=== PATIENT | female | born 1945 | race Caucasian/White ===

== ENCOUNTER 2016-12-10 10:27 | Inpatient (IN) | payer MEDICARE ==
[2016-12-10 11:10] LABS: #Basophils 0.1 thou/uL (0.0-0.2); #Eosinphils 0.4 thou/uL (0.0-0.7); #Lymphocytes 2.1 thou/uL (1.20-3.40); #Neutrophils 7.7 thou/uL (1.40-6.50); %Basophils 0.5 % (0.0-1.0); %Eosinophils 3.3 % (0.0-10.0); %Lymphocytes 18.4 % (21.0-51.0); %Monocytes 9.3 % (0.0-10.0); Hematocrit 38.4 % (36.0-47.0); Mean Platelet Volume 6.7 fL (7.4-10.4); Red Blood Cell (RBC) Count 4.09 mill/uL (4.20-5.40); White Blood Cell (WBC) Count 11.3 thou/uL (4.8-10.8)
[2016-12-10] MEDS ORDERED: Azithromycin 500 MG VIAL ONE (11:27)
[2016-12-10] MEDS ORDERED: Water For Inject, Bacteriostat 30 ML ONE (11:27)
[2016-12-10] MEDS ORDERED: Magnesium Sulfate 2 GM/100 ML BAG ONE (11:27)
[2016-12-10] MEDS ORDERED: methylPREDNISolone Sod Succ/PF 125 MG/2 ML VIAL ONE (11:27)
--- NOTE | 2016-12-10 11:39 | RAD ---
CHEST ONE VIEW: History: Dyspnea. Comparison: 11-09-16 FINDINGS: Cardiac silhouette is magnified by projection. Pulmonary vasculature is upper limits of normal. Maur ent is slightly rotated rightward. Mild bibasilar atelectasis is similar in appearance to the previo us exam. There is no confluent airspace consolidation or evidence of pneumothorax. hospice volunteer l kim overlie the chest. IMPRESSION: Chronic type findings appear stable. POS: [facility]
[2016-12-10 11:44] LABS: Troponin I 0.061 ng/mL (< 0.028)
[2016-12-10 12:05] LABS: Oxyhemoglobin 94.3 % (94.0-97.0); Sodium 139 mmol/L (135-148)
[2016-12-10 12:06] LABS: Mode NC; Modified Allen's Test POSITIVE; Vent NO
[2016-12-10 12:21] LABS: ALT (SGPT) 29 U/L (8-55); AST (SGOT) 20 U/L (5-34); Alkaline Phosphatase 103 U/L (40-150); Anion Gap 17 mmol/L (10-20); BUN (Urea Nitrogen) 23 mg/dL (9.8-20.1); Bilirubin, Total 0.4 mg/dL (0.2-1.2); CK (CPK) 42 U/L (29-168); Calc. Creatinine Clearance 0 mL/min (70-130); Calcium 9.2 mg/dL (7.8-10.44); Carbon Dioxide 33 mmol/L (23-31); Chloride 93 mmol/L (98-107); Estimated GFR-MDRD 76; Globulin 2.4 g/dL (2.4-3.5); Protein, Total 6.3 g/dL (6.0-8.3)
[2016-12-10 14:23] LABS: Troponin I 0.081 ng/mL (< 0.028)
--- NOTE | 2016-12-10 14:49 | HP ---
PRIMARY CARE PHYSICIAN: Carlos Mayorga M.D. REASON FOR ADMISSION: COPD exacerbation. HISTORY OF PRESENT ILLNESS: A 71-year-old female who has history of end-stage COPD and chronic resp iratory failure with home oxygen therapy, who presented to emergency room with a complaint of 3-day history of increasing shortness of breath. Patient was initially trying her home medication. She w as using her home nebulizer therapy, but patient was not feeling any better. Day by day, her cough and shortness of breath was more worse than baseline. Last night, patient was not able to breathe a t all and she was not able to sleep. Her symptoms were getting worse with lying down flat. She was having increasing cough and increasing sputum production with yellowish sputum, without any hemopty sis. Patient reports that recently she had upper respiratory infection with a runny nose. She magdi es any sore throat. She denies any flu-like illness. After that, all symptoms gotten worse. The p atient was able to hear her own wheezing. Last night, she had several times nebulizer therapy, but that was not helping, and that is why this morning she decided to come to the emergency room for ayden luation. In the emergency room, this patient appeared in mild respiratory distress. She was having wheezing. She was having very little air entry and she appeared in COPD exacerbation. Blood gas showed CO2 elevated. At this point, ER physician decided to keep this patient in the hospital for admission. At this time patient also has elevated troponin, but she denies any chest pain, but she does feels c hest tightness which she attributes to be due to breathing problem. She denies any palpitations. S he denies any dizziness or syncope. She denies any fever or chills. She denies any UTI symptoms. She denies any abdominal pain, constipation, diarrhea, melena, hematochezia. She denies any lower e xtremity edema. REVIEW OF SYSTEMS: The following complete review of systems was negative, unless otherwise mentione d in the HPI or below: Constitutional: Weight loss or gain, ability to conduct usual activities. Skin: Rash, itching. Eyes: Double vision, pain. ENT/Mouth: Nose bleeding, neck stiffness, pain, tenderness. Cardiovascular: Palpitations, dyspnea on exertion, orthopnea. Respiratory: Shortness of breath, wheezing, cough, hemoptysis, fever or night sweats. Gastrointestinal: Poor appetite, abdominal pain, heartburn, nausea, vomiting, constipation, or diar remington. Genitourinary: Urgency, frequency, dysuria, nocturia. Musculoskeletal: Pain, swelling. Neurologic/Psychiatric: Anxiety, depression. Allergy/Immunologic: Skin rash, bleeding tendency. Please see my HPI for pertinent positive and negative. All other review of systems reviewed and neg ative except as mentioned in the HPI. EMERGENCY ROOM COURSE: Patient is given DuoNeb therapy, azithromycin 500 mg, magnesium sulfate 2 g and Solu-Medrol 125 mg. PAST MEDICAL HISTORY: Chronic respiratory failure requiring home oxygen therapy, end-stage COPD, ch ronic respiratory acidosis with metabolic compensation, hypertension, dyslipidemia, hypothyroidism, chronic diastolic heart failure. PAST SURGICAL HISTORY: Defibrillator/pacemaker placement, cholecystectomy, tubal ligation. PAST PSYCHIATRIC HISTORY: Anxiety and depression. SOCIAL HISTORY: Patient lives at home. She has a remote history of smoking more than 50 years. Genesis boyce currently denies any smoking. She denies any other illicit drug abuse. She denies any alcohol ab use. ALLERGIES: CODEINE, PENICILLIN, and SULFA DRUGS. FAMILY HISTORY: No strong family history of premature coronary artery disease, stroke or cancer. CURRENT HOME MEDICATIONS: Albuterol nebulization q.4 hourly p.r.n., aspirin 81 mg p.o. daily, Lipit or 80 mg p.o. daily, Symbicort 2 puff inhalation b.i.d., Coreg 3.125 mg p.o. b.i.d., digoxin 0.125 m g p.o. daily, Zetia 10 mg p.o. daily, Prozac 20 mg p.o. daily, Lasix 80 mg p.o. b.i.d., Synthroid 75 mcg p.o. daily, lisinopril 2.5 mg p.o. daily, Protonix 40 mg p.o. daily, potassium chloride 10 mEq p.o. daily, simethicone 80 mg p.o. at bedtime p.r.n., buspirone 15 mg p.o. b.i.d., tramadol 50 mg p. o. t.i.d. p.r.n. PHYSICAL EXAMINATION: VITAL SIGNS: On arrival, blood pressure 112/66, pulse 90, respiratory rate 22, O2 saturation 95% on 3 liter oxygen, temperature 99.2. Weight 72.5 kilograms. GENERAL: Patient is currently alert, awake, appears in mild respiratory distress. HEAD: Normocephalic, atraumatic. EYES: Pupils round, reactive to light. Extraocular muscle intact. ENT: Oropharynx within normal limits. Moist mucous membranes. No oral lesions. No pharyngeal kenia thema, no exudate. NECK: Supple. Range of motion is normal. No meningeal signs of irritation. LUNGS: Bilateral end expiratory wheezing heard. Air entry reduced on both sides. No rales. The p atient does not have any accessory muscles of respiration in use. The patient is able to talk in fu ll sentences, but appears tachypneic. CARDIAC: S1, S2 regular without any murmur. ABDOMEN: Obesity present. Bowel sounds present, nontender, nondistended. No organomegaly, no mass , no suprapubic tenderness. BACK: Examination unremarkable, no CVA tenderness. EXTREMITIES: Upper extremity passive movements of all joints are normal. Lower extremity, bilatera l trace lower extremity edema noted. Good peripheral pulsation. SKIN: No skin rash. HEMATOLOGICAL SYSTEM: No lymphadenopathy. NEUROLOGIC: Patient is alert and oriented x3. Cranial nerves II-XII intact. Motor and sensation w ithin normal limits. The patient moves all 4 limbs. No focal neurological deficit. IMAGING AND SIGNIFICANT LABORATORY DATA: 1. EKG showing pacemaker rhythm. Chest x-ray showing chronic changes without any acute process. 2. CBC: WBC 11.3, hemoglobin 12.3, platelet 216. ABG: pH 7.34, CO2 73.8, bicarbonate 39.3, O2 88 .3, saturation 96.3 on oxygen. 3. BMP: Sodium 139, potassium 4.2, chloride 93, carbon dioxide 33, BUN 23, creatinine 0.75, glucos e 119, calcium 9.2. 4. LFT: AST 20, ALT 29, alkaline phosphatase 103, albumin 3.9, CK 42, CK-MB 2.7, troponin I 0.061. BNP 144.8. ASSESSMENT AND PLAN/IMPRESSION: 1. Acute on chronic obstructive pulmonary disease exacerbation with acute on chronic hypoxic respir atory failure. This patient has a very bad chronic obstructive pulmonary disease and patient has fa iled her home treatment. The patient has bilateral wheezing and decreased air entry. At this point , patient will require admission to telemetry floor because of elevated troponin. This patient will be treated with DuoNeb q.4 hourly on as needed basis, Dulera 2 puffs inhalation b.i.d., Mucinex 600 mg 3 times daily, Solu-Medrol 40 mg IV q.6 hourly. Empiric antibiotic therapy with azithromycin 50 0 mg IV daily. We will monitor clinical response. Oxygen to keep saturation above 92%. 2. Acute on chronic respiratory failure with hypercapnia and hypoxia on home oxygen therapy. Reginaldo morrell, patient has CO2 high, that is chronic with compensated bicarbonate elevated. This patient dennis l require oxygen to keep saturation 90%-92%. We will avoid high flow oxygen therapy. 3. Chronic diastolic heart failure. This patient has elevated BNP. Currently, her congestive hear t failure appears to be compensated and euvolemic. Patient will have continuous or home medication while in hospital. 4. Elevated troponin, likely due to demand ischemia from problem #1 and #2. 5. We will do serial cardiac enzymes to rule out acute coronary syndrome. 6. Dyslipidemia. We will continue Lipitor 80 mg p.o. at bedtime. 7. Chronic diastolic heart failure. We will continue Coreg 3.125 mg p.o. b.i.d., digoxin 0.125 mg p.o. daily, Lasix 40 mg p.o. b.i.d., lisinopril 2.5 mg p.o. daily. 8. Hypothyroidism. We will continue Synthroid 75 mcg p.o. daily. 9. Anxiety and depression. We will continue BuSpar 15 mg p.o. b.i.d., Prozac 20 mg p.o. daily. 10. Gastroesophageal reflux disease. We will continue Protonix 40 mg p.o. daily. 11. Deep venous thrombosis prophylaxis, Lovenox 40 mg subcu daily. 12. Gastrointestinal prophylaxis. Patient is already on Protonix therapy. 13. Code status: The patient is FULL CODE. Patient does not have any surrogate decision maker. Disposition plan based on clinical course. We are expecting patient's stay in the hospital more pamela n 2 midnights. Plan of care discussed with the patient in detail.
[2016-12-10] MEDS ORDERED: Loratadine 10 MG TAB PO PRN (15:42)
[2016-12-10] MEDS ORDERED: Ondansetron ODT 4 MG TAB PO PRN (15:42)
[2016-12-10] MEDS ORDERED: Milk Of Magnesia 30 ML UDCUP PO PRN (15:42)
[2016-12-10] MEDS ORDERED: Acetaminophen 325 MG TAB PO PRN (15:42)
[2016-12-10] MEDS ORDERED: Mag-Al 1200 mg/1200 mg/30 ML UDCUP PO PRN (15:42)
[2016-12-10] MEDS ORDERED: Benzonatate 100 MG CAP PO PRN (15:42)
[2016-12-10] MEDS ORDERED: Diabetic Tussin 200 MG/10 ML UDCUP PO PRN (15:42)
[2016-12-10] MEDS ORDERED: Eucerin (Mineral Oil/Petrolatum,White) 30 gm Jar TOP PRN (15:42)
[2016-12-10] MEDS ORDERED: Artificial Tears 18 DROP/0.9 ML EA EYE PRN (15:42)
[2016-12-10] MEDS ORDERED: Sodium Chloride 0.65% Nasal 44 ML BOT EA NARE PRN (15:42)
[2016-12-10] MEDS ORDERED: Simethicone Chewable 80 MG TAB PO PRN (15:42)
[2016-12-10] MEDS ORDERED: Chloraseptic Spray 180 ml Bottle PO PRN (15:42)
[2016-12-10] MEDS ORDERED: Ondansetron HCl/PF 4 MG/2 ML Vial IVP PRN (15:42)
[2016-12-10] MEDS ORDERED: Calcium Carbonate 500 MG ChewTAB PO PRN (15:42)
[2016-12-10] MEDS ORDERED: Loperamide HCl 2 MG CAP PO PRN (15:42)
[2016-12-10] MEDS ORDERED: Senokot 8.6 MG TAB PO PRN (15:42)
[2016-12-10] MEDS ORDERED: guaiFENesin ER 600 MG TAB PO SCH (16:30)
[2016-12-10 16:40] VITALS: BMI 31.0
[2016-12-10] MEDS: Carvedilol 3.125 MG TAB PO SCH (17:28)
[2016-12-10] MEDS ORDERED: FLU VACC TS2017-18 (>65YR) 0.5 ML SYRINGE IM ONE (17:45)
[2016-12-10 17:46] LABS: Troponin I 0.058 ng/mL (< 0.028)
[2016-12-10] MEDS: Mometasone/Formoterol 120 PUFF INHALER INH SCH (18:52)
[2016-12-10] MEDS: Atorvastatin Calcium 40 MG TAB PO SCH (20:47)
[2016-12-10] MEDS: busPIRone HCl 5 MG TAB PO SCH (20:47)
[2016-12-10] MEDS: traMADol HCl 50 MG TAB PO PRN (20:47)
[2016-12-10] MEDS: guaiFENesin ER 600 MG TAB PO SCH (20:48)
[2016-12-11 05:32] LABS: #Eosinphils 0.1 thou/uL (0.0-0.7); #Monocytes 0.3 thou/uL (0.11-0.59); #Neutrophils 9.9 thou/uL (1.40-6.50); %Basophils 0.1 % (0.0-1.0); %Eosinophils 0.5 % (0.0-10.0); %Monocytes 2.8 % (0.0-10.0); Hematocrit 35.2 % (36.0-47.0); Mean Platelet Volume 6.4 fL (7.4-10.4); Red Blood Cell (RBC) Count 3.75 mill/uL (4.20-5.40); White Blood Cell (WBC) Count 11.3 thou/uL (4.8-10.8)
[2016-12-11] MEDS: Levothyroxine Sodium 75 MCG TAB PO SCH (05:36)
[2016-12-11 05:52] LABS: BUN (Urea Nitrogen) 20 mg/dL (9.8-20.1); Calc. Creatinine Clearance 77 mL/min (70-130); Calcium 9.8 mg/dL (7.8-10.44); Estimated GFR-MDRD 71
[2016-12-11 06:01] LABS: Anion Gap 14 mmol/L (10-20); Carbon Dioxide 37 mmol/L (23-31); Chloride 94 mmol/L (98-107)
[2016-12-11] MEDS: Mometasone/Formoterol 120 PUFF INHALER INH SCH ×2 (06:22→18:44)
[2016-12-11] MEDS ORDERED: Simethicone Chewable 80 MG TAB PO PRN (08:48)
[2016-12-11] MEDS: Potassium Chloride 10 MEQ TAB PO SCH (08:56)
[2016-12-11] MEDS: Carvedilol 3.125 MG TAB PO SCH ×2 (08:56→16:59)
[2016-12-11] MEDS: Digoxin 0.125 MG TAB PO SCH (08:57)
[2016-12-11] MEDS: busPIRone HCl 5 MG TAB PO SCH ×2 (08:57→20:21)
[2016-12-11] MEDS: guaiFENesin ER 600 MG TAB PO SCH ×3 (08:58→20:21)
[2016-12-11] MEDS: Lisinopril 2.5 MG TAB PO SCH (08:58)
[2016-12-11] MEDS: Ezetimibe 10 MG TAB PO SCH (08:58)
[2016-12-11] MEDS: FLUoxetine HCl 20 MG CAP PO SCH (08:58)
[2016-12-11] MEDS ORDERED: Furosemide 40 MG TAB PO SCH ×2 (09:00)
[2016-12-11] MEDS: Saccharomyces boulardii 250 MG CAP PO SCH (10:07)
[2016-12-11] MEDS: Enoxaparin Sodium 40 MG/0.4 ML SYRINGE SC SCH (10:08)
[2016-12-11] MEDS: traMADol HCl 50 MG TAB PO PRN ×2 (12:05→20:21)
[2016-12-11] MEDS: Azithromycin 500 MG in Sodium Chloride 0.9% 250 ML 250 ML IVPB SCH (12:06)
--- NOTE | 2016-12-11 12:38 | CON ---
DATE OF CONSULTATION: 12/11/2016 CONSULTING PHYSICIAN: Dr. Rodgers. REASON FOR CONSULTATION: COPD exacerbation. HISTORY OF PRESENT ILLNESS: This is a 71-year-old female who has advanced COPD, requiring home O2. She came to the hospital yesterday with 3-day history of increasing shortness of breath after consu cody \\\\"hamburger and salty potato chips.\\\\" She states that she had been doing quite well at home since her last hospitalization several weeks ago. She had been trying to adhere to a strict diet. She is not currently taking prednisone at home. PAST MEDICAL HISTORY: 1. Severe COPD, requiring home O2. 2. Hypertension. 3. Hyperlipidemia. 4. Hypothyroidism. 5. Chronic diastolic heart failure. PAST SURGICAL HISTORY: 1. Defibrillator/pacemaker placement. 2. Cholecystectomy. 3. Tubal ligation. SOCIAL HISTORY: Former smoker who has not used tobacco products in the last 8 years. She does not consume alcohol. ALLERGIES: MEPERIDINE, MORPHINE, SUMATRIPTAN. MEDICATIONS PRIOR TO ADMISSION: Symbicort 160/4.5 two puffs twice daily, atorvastatin 80 mg daily, aspirin 81 mg daily, albuterol nebulization solution every 4 hours as needed, lisinopril 2.5 mg hawa y, Synthroid 75 mcg daily, Prozac 20 mg daily, Zetia 10 mg daily, digoxin 0.125 mg daily, potassium chloride 10 mEq daily, BuSpar 15 mg b.i.d., simethicone 80 mg as needed, Lasix 80 mg b.i.d., tramado l 50 mg t.i.d., Coreg 3.125 mg b.i.d. REVIEW OF SYSTEMS: Denies fever, chills, nausea, vomiting, chest pain, hematemesis, melena, hematoc hezia, hematuria, or dysuria. PHYSICAL EXAMINATION: VITAL SIGNS: Temperature 98.6, pulse 80, respirations 20, O2 saturation 97% on 2-1/2 liters, blood pressure 116/57. GENERAL: She is awake and alert, in no distress. HEENT: Unremarkable. NECK: Without adenopathy, JVD, or bruits. LUNGS: Clear to auscultation except for a few crackles in both bases. She has no wheezing. CARDIAC: S1, S2 regular with a 2/6 systolic murmur. ABDOMEN: Soft, nontender, nondistended. EXTREMITIES: No clubbing, cyanosis. She has trace edema. LABORATORY DATA: White blood cell count 11.3, hematocrit 35.2, platelet count 256. A pH 7.34, pCO2 of 73, pO2 of 88 that was on 3 liters. BNP level 144. Sodium 140, potassium 4.5, chloride 94, CO2 37, BUN 20, creatinine 0.8, glucose 176. IMAGING: Chest x-ray demonstrates hyperinflation, mild cardiomegaly, no acute infiltrates. ASSESSMENT: Chronic obstructive pulmonary disease versus diastolic cardiac dysfunction with exacerb ation of dyspnea. RECOMMENDATIONS: Agree with current plan of care, which includes nebulization therapy, diuresis, an d steroids. I would go ahead and cut her steroid dose significantly since she is doing well. I dennis l follow with you.
--- NOTE | 2016-12-11 12:48 | PDOC.PN ---
- Subjective Encounter Start Date: 12/11/16 Encounter Start Time: 12:46 Subjective: feels better but still some chest tightness and SOB w movement -: no F/C - Objective Resuscitation Status: Resuscitation Status FULL:Full Resuscitation MAR Reviewed: Yes Vital Signs & Weight: Vital Signs (12 hours) Temp Pulse Resp BP Pulse Ox 12/11/16 12:30 97.9 F 12/11/16 10:09 88 20 97 12/11/16 08:57 97 12/11/16 08:25 98.6 F 100 22 H 116/57 L 94 L 12/11/16 08:05 98.6 F 88 20 12/11/16 06:23 99 12/11/16 06:22 83 16 99 12/11/16 06:20 83 16 99 12/11/16 04:00 97.6 F 85 20 115/57 L 95 12/11/16 02:32 78 16 12/11/16 01:07 97 Weight Weight 162 lb I&O: 12/10/16 12/11/16 12/12/16 06:59 06:59 06:59 Intake Total 620 Output Total 550 Balance 70 Result Diagrams: 12/11/16 04:52 12/11/16 04:52 Phys Exam - Physical Examination Constitutional: NAD HEENT: PERRLA, moist MMs, sclera anicteric, oral pharynx no lesions Neck: no nodes, no JVD, supple, full ROM Respiratory: no wheezing, no rales, no rhonchi decreased left lung base Cardiovascular: RRR, no significant murmur Gastrointestinal: soft, non-tender, no distention, positive bowel sounds Musculoskeletal: no edema, pulses present Neurological: non-focal, normal sensation, moves all 4 limbs Psychiatric: normal affect, A&O x 3 Skin: no rash Dx/Plan (1) Acute on chronic respiratory failure with hypoxemia Code(s): J96.21 - ACUTE AND CHRONIC RESPIRATORY FAILURE WITH HYPOXIA Status: Acute (2) COPD exacerbation Code(s): J44.1 - CHRONIC OBSTRUCTIVE PULMONARY DISEASE W (ACUTE) EXACERBATION Status: Acute (3) Troponin level elevated Code(s): R74.8 - ABNORMAL LEVELS OF OTHER SERUM ENZYMES Status: Acute Comment: Likley demand ischemia from hypoxia (4) Anxiety and depression Code(s): F41.9 - ANXIETY DISORDER, UNSPECIFIED; F32.9 - MAJOR DEPRESSIVE DISORDER, SINGLE EPISODE, UNSPECIFIED Status: Chronic (5) Cardiomyopathy Code(s): I42.9 - CARDIOMYOPATHY, UNSPECIFIED Status: Chronic Qualifiers: (6) Dyslipidemia Code(s): E78.5 - HYPERLIPIDEMIA, UNSPECIFIED Status: Chronic (7) GERD (gastroesophageal reflux disease) Code(s): K21.9 - GASTRO-ESOPHAGEAL REFLUX DISEASE WITHOUT ESOPHAGITIS Status: Chronic Qualifiers: Esophagitis presence: without esophagitis Qualified Code(s): K21.9 - Gastro -esophageal reflux disease without esophagitis (8) HTN (hypertension) Code(s): I10 - ESSENTIAL (PRIMARY) HYPERTENSION Status: Chronic Qualifiers: Hypertension type: essential hypertension (9) Hypothyroidism Code(s): E03.9 - HYPOTHYROIDISM, UNSPECIFIED Status: Chronic (10) Obesity (BMI 30.0-34.9) Code(s): E66.9 - OBESITY, UNSPECIFIED Status: Chronic (11) AICD (automatic cardioverter/defibrillator) present Code(s): Z95.810 - PRESENCE OF AUTOMATIC (IMPLANTABLE) CARDIAC DEFIBRILLATOR Status: Acute (12) Chronic diastolic CHF (congestive heart failure) Code(s): I50.32 - CHRONIC DIASTOLIC (CONGESTIVE) HEART FAILURE Status: Chronic Comment: appears compensated for now - Plan continue antibiotics, PT/OT, director of social work, respiratory therapy, incentive spirometry, out of bed/ambulate, DVT proph w/SCDs cont nebs,steroids,prophylactic ABx. consult -: increase lasix to home doses.monitor I/os -: cont cardio-prudent meds.on ASA,statin,SAVANNAH-I,BB. -: hemodynamically stable.likley home in next 24-48 hours. -: am labs * . Review of Systems - Review of Systems Constitutional: Malaise Respiratory: Shortness of Breath, SOB with Excertion. negative: Cough, Dry, Hemoptysis, Pleuritic Pain, Sputum, Wheezing Cardiovascular: Chest Pain. negative: Palpitations, Orthopnea, Paroxysmal Noc. Dyspnea, Edema, Light Headedness, Other Gastrointestinal: negative: Nausea, Vomiting, Abdominal Pain, Diarrhea, Constipation, Melena, Hematochezia, Other Genitourinary: negative: Dysuria, Frequency, Incontinence, Hematuria, Retention , Other Musculoskeletal: negative: Neck Pain, Shoulder Pain, Arm Pain, Back Pain, Hand Pain, Leg Pain, Foot Pain, Other Neurological: negative: Weakness, Numbness, Incoordination, Change in Speech, Confusion, Seizures, Other - Medications/Allergies Allergies/Adverse Reactions: Allergies Allergy/AdvReac Type Severity Reaction Status Date / Time codeine Allergy Verified 11/09/16 03:36 levofloxacin [From Levaquin] Allergy Verified 11/09/16 03:36 onion Allergy Verified 11/09/16 03:36 Penicillins Allergy Verified 11/09/16 03:36 Sulfa (Sulfonamide Allergy Verified 11/09/16 03:36 Antibiotics) Medications: Current Medications Acetaminophen (Tylenol) 650 mg PO Q4H PRN PRN Reason: Headache/Fever or Pain Al Hydroxide/Mg Hydroxide (Maalox) 30 ml PO Q6H PRN PRN Reason: Heartburn or Indigestion Albuterol/Ipratropium (Duoneb) 3 ml NEB [id number] [facility] Last Admin: 12/11/16 10:09 Dose: 3 ml Albuterol/Ipratropium (Duoneb) 3 ml NEB [id number] PRN PRN Reason: SOB &/or Wheezing Artificial Tears (Tears Naturale) 0 drop EA EYE PRN PRN PRN Reason: Dry Eyes Aspirin (Aspirin Chewable) 81 mg PO DAILY [facility] Last Admin: 12/11/16 08:56 Dose: 81 mg Atorvastatin Calcium (Lipitor) 80 mg PO HS [facility] Last Admin: 12/10/16 20:47 Dose: 80 mg Benzonatate (Tessalon) 100 mg PO Q4H PRN PRN Reason: Cough Buspirone HCl (Buspar) 15 mg PO BID [facility] Last Admin: 12/11/16 08:57 Dose: 15 mg Calcium Carbonate (Tums) 1,000 mg PO Q4H PRN PRN Reason: Heartburn or Indigestion [facility] Last Admin: 12/11/16 08:56 Dose: 3.125 mg Digoxin (Lanoxin) 0.125 mg PO DAILY [facility] Last Admin: 12/11/16 08:57 Dose: 0.125 mg Ezetimibe (Zetia) 10 mg PO DAILY [facility] Last Admin: 12/11/16 08:58 Dose: 10 mg Enoxaparin Sodium (Lovenox) 40 mg SC 0900 [facility] Last Admin: 12/11/16 10:08 Dose: 40 mg Fluoxetine HCl (Prozac) 20 mg PO DAILY [facility] Last Admin: 12/11/16 08:58 Dose: 20 mg Furosemide (Lasix) 80 mg PO 0900,1400 [facility] Guaifenesin (Robitussin Sf) 200 mg PO Q4H PRN PRN Reason: Cough Guaifenesin (Mucinex) 600 mg PO TID [facility] Last Admin: 12/11/16 08:58 Dose: 600 mg Hydralazine HCl (Apresoline) 10 mg SLOW IVP Q4H PRN PRN Reason: Systolic BP > 180 Azithromycin 500 mg/ Sodium (Chloride) 250 mls @ 250 mls/hr IVPB 1200 [facility] Last Admin: 12/11/16 12:06 Dose: 250 mls Levothyroxine Sodium (Synthroid) 75 mcg PO 0600 [facility] Last Admin: 12/11/16 05:36 Dose: 75 mcg Lisinopril (Zestril) 2.5 mg PO DAILY [facility] Last Admin: 12/11/16 08:58 Dose: 2.5 mg Loperamide HCl (Imodium) 2 mg PO PRN PRN PRN Reason: Diarrhea/Loose Stools Loratadine (Claritin) 10 mg PO DAILYPRN PRN PRN Reason: Sinus Symptoms Magnesium Hydroxide (Milk Of Magnesium) 30 ml PO DAILYPRN PRN PRN Reason: Constipation Methylprednisolone Sodium Succinate (Solu-Medrol) 20 mg IVP Q6HR [facility] Last Admin: 12/11/16 12:06 Dose: 20 mg Mineral Oil/White Petrolatum (Eucerin Cream) 0 gm TOP BIDPRN PRN PRN Reason: Dry Skin Mometasone Furoate/Formoterol Fumar (Dulera 200 Mcg/5 Mcg Inhaler) 2 puff INH BID-RT [facility] Last Admin: 12/11/16 06:22 Dose: 2 puff Ondansetron HCl (Zofran Odt) 4 mg PO Q6H PRN PRN Reason: Nausea/Vomiting Ondansetron HCl (Zofran) 4 mg IVP Q6H PRN PRN Reason: Nausea/Vomiting Pantoprazole Sodium (Protonix) 40 mg PO DAILY [facility] Last Admin: 12/11/16 08:59 Dose: 40 mg Phenol (Chloraseptic Bally 180 Ml Bot) 0 ml PO PRN PRN PRN Reason: Sore Throat Potassium Chloride (Klor-Con 10) 10 meq PO QAM-WM [facility] Last Admin: 12/11/16 08:56 Dose: 10 meq Saccharomyces Boulardii (Florastor) 250 mg PO DAILY [facility] Last Admin: 12/11/16 10:07 Dose: 250 mg Senna (Senokot) 2 tab PO HSPRN PRN PRN Reason: Constipation Simethicone (Mylicon Chewable) 80 mg PO PCHS PRN PRN Reason: Gas Pain Last Admin: 12/11/16 10:08 Dose: 80 mg Sodium Chloride (Cambria Nasal Bally 0.65%) 0 ml EA NARE QIDPRN PRN PRN Reason: Nasal Congestion Tramadol HCl (Ultram) 50 mg PO Q4H PRN PRN Reason: Moderate Pain (4-6) Last Admin: 12/11/16 12:05 Dose: 50 mg
[2016-12-11] MEDS: Furosemide 40 MG TAB PO SCH (14:05)
[2016-12-11] MEDS: Atorvastatin Calcium 40 MG TAB PO SCH (20:21)
[2016-12-12] MEDS: Levothyroxine Sodium 75 MCG TAB PO SCH (05:26)
[2016-12-12 05:39] LABS: Anion Gap 12 mmol/L (10-20); BUN (Urea Nitrogen) 23 mg/dL (9.8-20.1); Calc. Creatinine Clearance 67 mL/min (70-130); Calcium 9.3 mg/dL (7.8-10.44); Carbon Dioxide 37 mmol/L (23-31); Chloride 94 mmol/L (98-107); Estimated GFR-MDRD 62
[2016-12-12] MEDS: Mometasone/Formoterol 120 PUFF INHALER INH SCH ×2 (06:07→18:48)
--- NOTE | 2016-12-12 08:30 | PRG ---
DATE OF SERVICE: 12/12/2016 She feels better today. PHYSICAL EXAMINATION: VITAL SIGNS: Her temperature is 98.4, pulse 84, respirations 18, sats 93% on 2 liters, blood pressu re 118/55. HEENT: Unremarkable. NECK: No JVD. CHEST: Fairly clear. CARDIAC: S1 and S2 regular. ABDOMEN: Soft. EXTREMITIES: Trace edema. LABORATORY DATA: Sodium 139, potassium 3.7, chloride 94, CO2 37, BUN 23, creatinine 0.9, glucose 16 0. ASSESSMENT: 1. Chronic obstructive pulmonary disease with exacerbation. 2. Chronic hypoxic/hypercapnic respiratory failure. PLAN: Continue steroids and nebulization therapy. I have encouraged her to increase her activity t medina. Hopefully, she can go home in the next day or two if she is doing well.
[2016-12-12] MEDS: guaiFENesin ER 600 MG TAB PO SCH ×3 (08:59→20:07)
[2016-12-12] MEDS: Potassium Chloride 10 MEQ TAB PO SCH (09:00)
[2016-12-12] MEDS: Saccharomyces boulardii 250 MG CAP PO SCH (09:00)
[2016-12-12] MEDS: busPIRone HCl 5 MG TAB PO SCH ×2 (09:00→20:07)
[2016-12-12] MEDS: Carvedilol 3.125 MG TAB PO SCH ×2 (09:00→16:58)
[2016-12-12] MEDS: Ezetimibe 10 MG TAB PO SCH (09:01)
[2016-12-12] MEDS: Furosemide 40 MG TAB PO SCH ×2 (09:01→14:10)
[2016-12-12] MEDS: Digoxin 0.125 MG TAB PO SCH (09:01)
[2016-12-12] MEDS: FLUoxetine HCl 20 MG CAP PO SCH (09:01)
[2016-12-12] MEDS: Enoxaparin Sodium 40 MG/0.4 ML SYRINGE SC SCH (09:02)
--- NOTE | 2016-12-12 11:49 | PDOC.PN ---
- Subjective Encounter Start Date: 12/12/16 Encounter Start Time: 11:48 Subjective: feels better today but still with abdominal pain after eating w bloating - Objective Resuscitation Status: Resuscitation Status FULL:Full Resuscitation MAR Reviewed: Yes Vital Signs & Weight: Vital Signs (12 hours) Temp Pulse Resp BP Pulse Ox 12/12/16 10:04 91 16 95 12/12/16 09:01 84 12/12/16 08:00 98.4 F 84 18 93 L 12/12/16 07:50 98.4 F 84 18 118/55 L 93 L 12/12/16 06:08 96 12/12/16 06:07 16 96 12/12/16 06:05 84 16 96 12/12/16 03:33 98.7 F 86 18 113/54 L 95 12/12/16 03:06 96 Weight Weight 160 lb I&O: 12/11/16 12/12/16 12/13/16 06:59 06:59 06:59 Intake Total 620 1290 Output Total 550 2320 Balance 70 -1030 Result Diagrams: 12/11/16 04:52 12/12/16 04:56 Additional Labs: Laboratory Tests 12/10/16 12/10/16 12/10/16 10:56 10:56 13:43 Troponin I 0.061 H 0.081 H B-Natriuretic Peptide 144.8 H 12/10/16 12/12/16 17:03 04:56 Troponin I 0.058 H B-Natriuretic Peptide 161.2 H Radiology Reviewed by me: Yes (CT A/P 06/23- no acute GB/liver/spleen/pancreatic pathology) Phys Exam - Physical Examination Constitutional: NAD HEENT: PERRLA, moist MMs, sclera anicteric, oral pharynx no lesions Neck: no nodes, no JVD, supple, full ROM Respiratory: no wheezing, no rales, no rhonchi, clear to auscultation bilateral Cardiovascular: RRR, no significant murmur, no rub, gallop Gastrointestinal: soft, non-tender, no distention, positive bowel sounds Musculoskeletal: no edema, pulses present Neurological: non-focal, normal sensation, moves all 4 limbs Psychiatric: normal affect, A&O x 3 Skin: no rash Dx/Plan (1) Acute on chronic respiratory failure with hypoxemia Code(s): J96.21 - ACUTE AND CHRONIC RESPIRATORY FAILURE WITH HYPOXIA Status: Resolved (2) COPD exacerbation Code(s): J44.1 - CHRONIC OBSTRUCTIVE PULMONARY DISEASE W (ACUTE) EXACERBATION Status: Acute (3) Troponin level elevated Code(s): R74.8 - ABNORMAL LEVELS OF OTHER SERUM ENZYMES Status: Acute Comment: Taryn demand ischemia from hypoxia (4) Anxiety and depression Code(s): F41.9 - ANXIETY DISORDER, UNSPECIFIED; F32.9 - MAJOR DEPRESSIVE DISORDER, SINGLE EPISODE, UNSPECIFIED Status: Chronic (5) Cardiomyopathy Code(s): I42.9 - CARDIOMYOPATHY, UNSPECIFIED Status: Chronic Qualifiers: (6) Dyslipidemia Code(s): E78.5 - HYPERLIPIDEMIA, UNSPECIFIED Status: Chronic (7) GERD (gastroesophageal reflux disease) Code(s): K21.9 - GASTRO-ESOPHAGEAL REFLUX DISEASE WITHOUT ESOPHAGITIS Status: Chronic Qualifiers: Esophagitis presence: without esophagitis Qualified Code(s): K21.9 - Gastro -esophageal reflux disease without esophagitis (8) HTN (hypertension) Code(s): I10 - ESSENTIAL (PRIMARY) HYPERTENSION Status: Chronic Qualifiers: Hypertension type: essential hypertension (9) Hypothyroidism Code(s): E03.9 - HYPOTHYROIDISM, UNSPECIFIED Status: Chronic (10) Obesity (BMI 30.0-34.9) Code(s): E66.9 - OBESITY, UNSPECIFIED Status: Chronic (11) AICD (automatic cardioverter/defibrillator) present Code(s): Z95.810 - PRESENCE OF AUTOMATIC (IMPLANTABLE) CARDIAC DEFIBRILLATOR Status: Acute (12) Chronic diastolic CHF (congestive heart failure) Code(s): I50.32 - CHRONIC DIASTOLIC (CONGESTIVE) HEART FAILURE Status: Chronic Comment: appears compensated for now - Plan continue antibiotics, PT/OT, social services analyst, respiratory therapy, incentive spirometry, out of bed/ambulate, DVT proph w/lovenox, DVT proph w/SCDs clinically better. cont IV steroids,nebs,empiric ABX.PCCM following -: abdominal complaints are chr per pt.CT scan from reviewed.on PPI -: recommend Outpt GI follow up for EGD. -: hemodynamically stable.taryn PARISH in am -: add HH * . Review of Systems - Review of Systems Constitutional: negative: Fever, Chills, Sweats, Weakness, Malaise, Other Respiratory: negative: Cough, Dry, Shortness of Breath, Hemoptysis, SOB with Excertion, Pleuritic Pain, Sputum, Wheezing Cardiovascular: negative: Chest Pain, Palpitations, Orthopnea, Paroxysmal Noc. Dyspnea, Edema, Light Headedness, Other Gastrointestinal: Nausea, Abdominal Pain Genitourinary: negative: Dysuria, Frequency, Incontinence, Hematuria, Retention , Other Musculoskeletal: negative: Neck Pain, Shoulder Pain, Arm Pain, Back Pain, Hand Pain, Leg Pain, Foot Pain, Other Neurological: negative: Weakness, Numbness, Incoordination, Change in Speech, Confusion, Seizures, Other - Medications/Allergies Allergies/Adverse Reactions: Allergies Allergy/AdvReac Type Severity Reaction Status Date / Time codeine Allergy Verified 11/09/16 03:36 levofloxacin [From Levaquin] Allergy Verified 11/09/16 03:36 onion Allergy Verified 11/09/16 03:36 Penicillins Allergy Verified 11/09/16 03:36 Sulfa (Sulfonamide Allergy Verified 11/09/16 03:36 Antibiotics) Medications: Current Medications Acetaminophen (Tylenol) 650 mg PO Q4H PRN PRN Reason: Headache/Fever or Pain Al Hydroxide/Mg Hydroxide (Maalox) 30 ml PO Q6H PRN PRN Reason: Heartburn or Indigestion Albuterol/Ipratropium (Duoneb) 3 ml NEB [id number] [facility] Last Admin: 12/12/16 10:04 Dose: 3 ml Albuterol/Ipratropium (Duoneb) 3 ml NEB [id number] PRN PRN Reason: SOB &/or Wheezing Artificial Tears (Tears Naturale) 0 drop EA EYE PRN PRN PRN Reason: Dry Eyes Aspirin (Aspirin Chewable) 81 mg PO DAILY [facility] Last Admin: 12/12/16 08:59 Dose: 81 mg Atorvastatin Calcium (Lipitor) 80 mg PO HS [facility] Last Admin: 12/11/16 20:21 Dose: 80 mg Benzonatate (Tessalon) 100 mg PO Q4H PRN PRN Reason: Cough Buspirone HCl (Buspar) 15 mg PO BID [facility] Last Admin: 12/12/16 09:00 Dose: 15 mg Calcium Carbonate (Tums) 1,000 mg PO Q4H PRN PRN Reason: Heartburn or Indigestion Carvedilol (Coreg) 3.125 mg PO BID-[facility] Last Admin: 12/12/16 09:00 Dose: 3.125 mg Digoxin (Lanoxin) 0.125 mg PO DAILY [facility] Last Admin: 12/12/16 09:01 Dose: 0.125 mg Ezetimibe (Zetia) 10 mg PO DAILY [facility] Last Admin: 12/12/16 09:01 Dose: 10 mg Enoxaparin Sodium (Lovenox) 40 mg SC 0900 [facility] Last Admin: 12/12/16 09:02 Dose: 40 mg Fluoxetine HCl (Prozac) 20 mg PO DAILY [facility] Last Admin: 12/12/16 09:01 Dose: 20 mg Furosemide (Lasix) 80 mg PO 0900,1400 [facility] Last Admin: 12/12/16 09:01 Dose: 80 mg Guaifenesin (Robitussin Sf) 200 mg PO Q4H PRN PRN Reason: Cough Guaifenesin (Mucinex) 600 mg PO TID [facility] Last Admin: 12/12/16 08:59 Dose: 600 mg Hydralazine HCl (Apresoline) 10 mg SLOW IVP Q4H PRN PRN Reason: Systolic BP > 180 Azithromycin 500 mg/ Sodium (Chloride) 250 mls @ 250 mls/hr IVPB 1200 [facility] Last Admin: 12/11/16 12:06 Dose: 250 mls Levothyroxine Sodium (Synthroid) 75 mcg PO 0600 [facility] Last Admin: 12/12/16 05:26 Dose: 75 mcg Lisinopril (Zestril) 2.5 mg PO DAILY [facility] Last Admin: 12/11/16 08:58 Dose: 2.5 mg Loperamide HCl (Imodium) 2 mg PO PRN PRN PRN Reason: Diarrhea/Loose Stools Loratadine (Claritin) 10 mg PO DAILYPRN PRN PRN Reason: Sinus Symptoms Magnesium Hydroxide (Milk Of Magnesium) 30 ml PO DAILYPRN PRN PRN Reason: Constipation Methylprednisolone Sodium Succinate (Solu-Medrol) 20 mg IVP Q6HR [facility] Last Admin: 12/12/16 05:25 Dose: 20 mg Mineral Oil/White Petrolatum (Eucerin Cream) 0 gm TOP BIDPRN PRN PRN Reason: Dry Skin Mometasone Furoate/Formoterol Fumar (Dulera 200 Mcg/5 Mcg Inhaler) 2 puff INH BID-RT [facility] Last Admin: 12/12/16 06:07 Dose: 2 puff Ondansetron HCl (Zofran Odt) 4 mg PO Q6H PRN PRN Reason: Nausea/Vomiting Ondansetron HCl (Zofran) 4 mg IVP Q6H PRN PRN Reason: Nausea/Vomiting Pantoprazole Sodium (Protonix) 40 mg PO DAILY [facility] Last Admin: 12/12/16 09:01 Dose: 40 mg Phenol (Chloraseptic [place] 180 Ml Bot) 0 ml PO PRN PRN PRN Reason: Sore Throat Potassium Chloride (Klor-Con 10) 10 meq PO QAM-WM [facility] Last Admin: 12/12/16 09:00 Dose: 10 meq Saccharomyces Boulardii (Florastor) 250 mg PO DAILY [facility] Last Admin: 12/12/16 09:00 Dose: 250 mg Senna (Senokot) 2 tab PO HSPRN PRN PRN Reason: Constipation Simethicone (Mylicon Chewable) 80 mg PO PCHS PRN PRN Reason: Gas Pain Last Admin: 12/11/16 10:08 Dose: 80 mg Sodium Chloride ([place] Nasal [place] 0.65%) 0 ml EA NARE QIDPRN PRN PRN Reason: Nasal Congestion Tramadol HCl (Ultram) 50 mg PO Q4H PRN PRN Reason: Moderate Pain (4-6) Last Admin: 12/11/16 20:21 Dose: 50 mg
[2016-12-12] MEDS: Azithromycin 500 MG in Sodium Chloride 0.9% 250 ML 250 ML IVPB SCH (12:39)
[2016-12-12] MEDS: Lisinopril 2.5 MG TAB PO SCH (14:10)
[2016-12-12] MEDS: traMADol HCl 50 MG TAB PO PRN (20:05)
[2016-12-12] MEDS: Atorvastatin Calcium 40 MG TAB PO SCH (20:06)
[2016-12-13] MEDS: Levothyroxine Sodium 75 MCG TAB PO SCH (05:06)
[2016-12-13 05:31] LABS: Troponin I 0.024 ng/mL (< 0.028)
[2016-12-13] MEDS: Mometasone/Formoterol 120 PUFF INHALER INH SCH ×2 (07:19→18:34)
[2016-12-13] MEDS: guaiFENesin ER 600 MG TAB PO SCH ×3 (09:00→20:12)
[2016-12-13] MEDS: Potassium Chloride 10 MEQ TAB PO SCH (09:00)
[2016-12-13] MEDS: Carvedilol 3.125 MG TAB PO SCH ×2 (09:00→16:06)
[2016-12-13] MEDS: busPIRone HCl 5 MG TAB PO SCH ×2 (09:00→20:12)
[2016-12-13] MEDS: Furosemide 40 MG TAB PO SCH ×2 (09:01→14:44)
[2016-12-13] MEDS: FLUoxetine HCl 20 MG CAP PO SCH (09:02)
[2016-12-13] MEDS: Saccharomyces boulardii 250 MG CAP PO SCH (09:02)
[2016-12-13] MEDS: Lisinopril 2.5 MG TAB PO SCH (09:02)
[2016-12-13] MEDS: Digoxin 0.125 MG TAB PO SCH (09:02)
[2016-12-13] MEDS: Enoxaparin Sodium 40 MG/0.4 ML SYRINGE SC SCH (09:03)
[2016-12-13] MEDS: Ezetimibe 10 MG TAB PO SCH (09:03)
--- NOTE | 2016-12-13 10:40 | PDOC.PN ---
- Subjective Encounter Start Date: 12/13/16 Encounter Start Time: 10:39 Subjective: feels better. breathing easier.no new complaints - Objective Resuscitation Status: Resuscitation Status FULL:Full Resuscitation MAR Reviewed: Yes Vital Signs & Weight: Vital Signs (12 hours) Temp Pulse Resp BP BP Pulse Ox 12/13/16 09:02 91 176/69 H 12/13/16 07:50 97.6 F 91 19 176/69 H 95 12/13/16 07:22 95 12/13/16 07:19 82 20 95 12/13/16 04:00 97.9 F 83 18 137/67 96 12/13/16 01:52 98 12/13/16 01:05 81 18 98 12/13/16 00:00 98.6 F 82 18 125/66 97 Weight Weight 160 lb 8 oz I&O: 12/12/16 12/13/16 12/14/16 06:59 06:59 06:59 Intake Total 1290 2100 Output Total 2320 2890 Balance -1030 -790 Result Diagrams: 12/11/16 04:52 12/12/16 04:56 Additional Labs: Laboratory Tests 12/10/16 12/12/16 10:56 04:56 B-Natriuretic Peptide 144.8 H 161.2 H Phys Exam - Physical Examination Constitutional: NAD HEENT: PERRLA, moist MMs, sclera anicteric, oral pharynx no lesions Neck: no nodes, no JVD, supple, full ROM Respiratory: no wheezing, no rales, no rhonchi, clear to auscultation bilateral Cardiovascular: RRR, no significant murmur Gastrointestinal: soft, non-tender, no distention, positive bowel sounds Musculoskeletal: no edema, pulses present Neurological: non-focal, normal sensation, moves all 4 limbs Psychiatric: normal affect, A&O x 3 Skin: no rash Dx/Plan (1) Acute on chronic respiratory failure with hypoxemia Code(s): J96.21 - ACUTE AND CHRONIC RESPIRATORY FAILURE WITH HYPOXIA Status: Resolved (2) COPD exacerbation Code(s): J44.1 - CHRONIC OBSTRUCTIVE PULMONARY DISEASE W (ACUTE) EXACERBATION Status: Acute (3) Troponin level elevated Code(s): R74.8 - ABNORMAL LEVELS OF OTHER SERUM ENZYMES Status: Acute Comment: Likley demand ischemia from hypoxia (4) Anxiety and depression Code(s): F41.9 - ANXIETY DISORDER, UNSPECIFIED; F32.9 - MAJOR DEPRESSIVE DISORDER, SINGLE EPISODE, UNSPECIFIED Status: Chronic (5) Cardiomyopathy Code(s): I42.9 - CARDIOMYOPATHY, UNSPECIFIED Status: Chronic Qualifiers: (6) Dyslipidemia Code(s): E78.5 - HYPERLIPIDEMIA, UNSPECIFIED Status: Chronic (7) GERD (gastroesophageal reflux disease) Code(s): K21.9 - GASTRO-ESOPHAGEAL REFLUX DISEASE WITHOUT ESOPHAGITIS Status: Chronic Qualifiers: Esophagitis presence: without esophagitis Qualified Code(s): K21.9 - Gastro -esophageal reflux disease without esophagitis (8) HTN (hypertension) Code(s): I10 - ESSENTIAL (PRIMARY) HYPERTENSION Status: Chronic Qualifiers: Hypertension type: essential hypertension (9) Hypothyroidism Code(s): E03.9 - HYPOTHYROIDISM, UNSPECIFIED Status: Chronic (10) Obesity (BMI 30.0-34.9) Code(s): E66.9 - OBESITY, UNSPECIFIED Status: Chronic (11) AICD (automatic cardioverter/defibrillator) present Code(s): Z95.810 - PRESENCE OF AUTOMATIC (IMPLANTABLE) CARDIAC DEFIBRILLATOR Status: Acute (12) Chronic diastolic CHF (congestive heart failure) Code(s): I50.32 - CHRONIC DIASTOLIC (CONGESTIVE) HEART FAILURE Status: Chronic Comment: appears compensated for now - Plan continue antibiotics, respiratory therapy, incentive spirometry, out of bed/ ambulate, DVT proph w/SCDs Clinically better. on IV stroids ,tapering dose. -: Cont empiric antibiotics,nebs.Chr home o2 -: PCCM following. -: Alla [place] home later today or tomorrow when cleared by Pulmonary -: home meds as below * . Review of Systems - Review of Systems Constitutional: Malaise. negative: Fever, Chills, Sweats, Weakness, Other Respiratory: SOB with Excertion. negative: Cough, Dry, Shortness of Breath, Hemoptysis, Pleuritic Pain, Sputum, Wheezing Cardiovascular: negative: Chest Pain, Palpitations, Orthopnea, Paroxysmal Noc. Dyspnea, Edema, Light Headedness, Other Gastrointestinal: negative: Nausea, Vomiting, Abdominal Pain, Diarrhea, Constipation, Melena, Hematochezia, Other Genitourinary: negative: Dysuria, Frequency, Incontinence, Hematuria, Retention , Other Musculoskeletal: negative: Neck Pain, Shoulder Pain, Arm Pain, Back Pain, Hand Pain, Leg Pain, Foot Pain, Other Neurological: negative: Weakness, Numbness, Incoordination, Change in Speech, Confusion, Seizures, Other - Medications/Allergies Allergies/Adverse Reactions: Allergies Allergy/AdvReac Type Severity Reaction Status Date / Time codeine Allergy Verified 11/09/16 03:36 levofloxacin [From Levaquin] Allergy Verified 11/09/16 03:36 onion Allergy Verified 11/09/16 03:36 Penicillins Allergy Verified 11/09/16 03:36 Sulfa (Sulfonamide Allergy Verified 11/09/16 03:36 Antibiotics) Medications: Current Medications Acetaminophen (Tylenol) 650 mg PO Q4H PRN PRN Reason: Headache/Fever or Pain Al Hydroxide/Mg Hydroxide (Maalox) 30 ml PO Q6H PRN PRN Reason: Heartburn or Indigestion Albuterol/Ipratropium (Duoneb) 3 ml NEB [id number] [facility] Last Admin: 12/13/16 07:19 Dose: 3 ml Albuterol/Ipratropium (Duoneb) 3 ml NEB [id number] PRN PRN Reason: SOB &/or Wheezing Artificial Tears (Tears Naturale) 0 drop EA EYE PRN PRN PRN Reason: Dry Eyes Aspirin (Aspirin Chewable) 81 mg PO DAILY [facility] Last Admin: 12/13/16 09:02 Dose: 81 mg Atorvastatin Calcium (Lipitor) 80 mg PO HS [facility] Last Admin: 12/12/16 20:06 Dose: 80 mg Benzonatate (Tessalon) 100 mg PO Q4H PRN PRN Reason: Cough Buspirone HCl (Buspar) 15 mg PO BID [facility] Last Admin: 12/13/16 09:00 Dose: 15 mg Calcium Carbonate (Tums) 1,000 mg PO Q4H PRN PRN Reason: Heartburn or Indigestion Carvedilol (Coreg) 3.125 mg PO BID-[facility] Last Admin: 12/13/16 09:00 Dose: 3.125 mg Digoxin (Lanoxin) 0.125 mg PO DAILY [facility] Last Admin: 12/13/16 09:02 Dose: 0.125 mg Ezetimibe (Zetia) 10 mg PO DAILY [facility] Last Admin: 12/13/16 09:03 Dose: 10 mg Enoxaparin Sodium (Lovenox) 40 mg SC 0900 [facility] Last Admin: 12/13/16 09:03 Dose: 40 mg Fluoxetine HCl (Prozac) 20 mg PO DAILY [facility] Last Admin: 12/13/16 09:02 Dose: 20 mg Furosemide (Lasix) 80 mg PO 0900,1400 [facility] Last Admin: 12/13/16 09:01 Dose: 80 mg Guaifenesin (Robitussin Sf) 200 mg PO Q4H PRN PRN Reason: Cough Guaifenesin (Mucinex) 600 mg PO TID [facility] Last Admin: 12/13/16 09:00 Dose: 600 mg Hydralazine HCl (Apresoline) 10 mg SLOW IVP Q4H PRN PRN Reason: Systolic BP > 180 Azithromycin 500 mg/ Sodium (Chloride) 250 mls @ 250 mls/hr IVPB 1200 [facility] Last Admin: 12/12/16 12:39 Dose: 250 mls Levothyroxine Sodium (Synthroid) 75 mcg PO 0600 [facility] Last Admin: 12/13/16 05:06 Dose: 75 mcg Lisinopril (Zestril) 2.5 mg PO DAILY [facility] Last Admin: 12/13/16 09:02 Dose: 2.5 mg Loperamide HCl (Imodium) 2 mg PO PRN PRN PRN Reason: Diarrhea/Loose Stools Loratadine (Claritin) 10 mg PO DAILYPRN PRN PRN Reason: Sinus Symptoms Magnesium Hydroxide (Milk Of Magnesium) 30 ml PO DAILYPRN PRN PRN Reason: Constipation Methylprednisolone Sodium Succinate (Solu-Medrol) 20 mg IVP Q6HR [facility] Last Admin: 12/13/16 05:06 Dose: 20 mg Mineral Oil/White Petrolatum (Eucerin Cream) 0 gm TOP BIDPRN PRN PRN Reason: Dry Skin Mometasone Furoate/Formoterol Fumar (Dulera 200 Mcg/5 Mcg Inhaler) 2 puff INH BID-RT [facility] Last Admin: 12/13/16 07:19 Dose: 2 puff Ondansetron HCl (Zofran Odt) 4 mg PO Q6H PRN PRN Reason: Nausea/Vomiting Ondansetron HCl (Zofran) 4 mg IVP Q6H PRN PRN Reason: Nausea/Vomiting Pantoprazole Sodium (Protonix) 40 mg PO DAILY [facility] Last Admin: 12/13/16 09:02 Dose: 40 mg Phenol (Chloraseptic [place] 180 Ml Bot) 0 ml PO PRN PRN PRN Reason: Sore Throat Potassium Chloride (Klor-Con 10) 10 meq PO QAM-WM [facility] Last Admin: 12/13/16 09:00 Dose: 10 meq Saccharomyces Boulardii (Florastor) 250 mg PO DAILY [facility] Last Admin: 12/13/16 09:02 Dose: 250 mg Senna (Senokot) 2 tab PO HSPRN PRN PRN Reason: Constipation Simethicone (Mylicon Chewable) 80 mg PO PCHS PRN PRN Reason: Gas Pain Last Admin: 12/11/16 10:08 Dose: 80 mg Sodium Chloride ([place] Nasal [place] 0.65%) 0 ml EA NARE QIDPRN PRN PRN Reason: Nasal Congestion Tramadol HCl (Ultram) 50 mg PO Q4H PRN PRN Reason: Moderate Pain (4-6) Last Admin: 12/12/16 20:05 Dose: 50 mg
[2016-12-13] MEDS: traMADol HCl 50 MG TAB PO PRN ×2 (12:53→20:12)
[2016-12-13] MEDS: Azithromycin 500 MG in Sodium Chloride 0.9% 250 ML 250 ML IVPB SCH (12:54)
--- NOTE | 2016-12-13 16:56 | PRG ---
DATE OF SERVICE: 12/13/2016 OBJECTIVE: VITAL SIGNS: Ms. Gr is afebrile. Heart rate is 79, respiratory rate is 24, oximetry is 99% on 3 liters and blood pressure 113/55. LUNGS: Still remarkable for faint wheezes. HEART: Regular rhythm. ABDOMEN: Soft. LABORATORY DATA: There is no new lab today. She does not feel she is strong enough to go home. IMPRESSION: 1. Chronic obstructive pulmonary disease exacerbation. 2. Chronic hypoxemic hypercapnic respiratory failure. PLAN: Gradually increase activity and reassess her each day for the possibility of discharge. She lives with her sister. Says her sister did not feel safe to take her home yet.
[2016-12-13] MEDS: Atorvastatin Calcium 40 MG TAB PO SCH (20:12)
[2016-12-14] MEDS: Levothyroxine Sodium 75 MCG TAB PO SCH (05:42)
[2016-12-14 05:58] LABS: BUN (Urea Nitrogen) 27 mg/dL (9.8-20.1); Calc. Creatinine Clearance 76 mL/min (70-130); Calcium 9.3 mg/dL (7.8-10.44); Estimated GFR-MDRD 72
[2016-12-14 06:06] LABS: Anion Gap 13 mmol/L (10-20); Carbon Dioxide 38 mmol/L (23-31); Chloride 95 mmol/L (98-107)
[2016-12-14] MEDS: Mometasone/Formoterol 120 PUFF INHALER INH SCH ×2 (07:45→19:37)
[2016-12-14] MEDS: Enoxaparin Sodium 40 MG/0.4 ML SYRINGE SC SCH (09:52)
[2016-12-14] MEDS: Potassium Chloride 10 MEQ TAB PO SCH (09:53)
[2016-12-14] MEDS: guaiFENesin ER 600 MG TAB PO SCH ×3 (09:53→20:53)
[2016-12-14] MEDS: busPIRone HCl 5 MG TAB PO SCH ×2 (09:53→20:52)
[2016-12-14] MEDS: Furosemide 40 MG TAB PO SCH ×2 (09:53→14:25)
[2016-12-14] MEDS: Saccharomyces boulardii 250 MG CAP PO SCH (09:53)
[2016-12-14] MEDS: Carvedilol 3.125 MG TAB PO SCH ×2 (09:53→17:02)
[2016-12-14] MEDS: FLUoxetine HCl 20 MG CAP PO SCH (09:53)
[2016-12-14] MEDS: Ezetimibe 10 MG TAB PO SCH (09:54)
[2016-12-14] MEDS: Digoxin 0.125 MG TAB PO SCH (09:54)
[2016-12-14] MEDS: Lisinopril 2.5 MG TAB PO SCH (09:55)
--- NOTE | 2016-12-14 10:33 | PDOC.PN ---
- Subjective Encounter Start Date: 12/14/16 Encounter Start Time: 10:32 Subjective: feels that she's very weak still & will not be able to go home today either -: some HAIRSTON.no chest pain - Objective Resuscitation Status: Resuscitation Status FULL:Full Resuscitation MAR Reviewed: Yes Vital Signs & Weight: Vital Signs (12 hours) Temp Pulse Resp BP Pulse Ox 12/14/16 09:55 76 12/14/16 09:54 76 12/14/16 07:56 97.4 F L 79 151/75 H 96 12/14/16 07:49 97 12/14/16 07:45 85 24 H 97 12/14/16 04:00 97.6 F 76 20 135/64 97 12/14/16 02:47 78 18 98 12/14/16 00:24 97 12/14/16 00:00 98.2 F 77 18 118/60 97 12/13/16 23:11 85 18 97 Weight Weight 159 lb 4.8 oz I&O: 12/13/16 12/14/16 12/15/16 06:59 06:59 06:59 Intake Total 2100 1960 Output Total 2890 3780 Balance -790 -1820 Result Diagrams: 12/11/16 04:52 12/14/16 04:41 Phys Exam - Physical Examination Constitutional: NAD tired looking HEENT: PERRLA, moist MMs, sclera anicteric, oral pharynx no lesions Neck: no nodes, no JVD, supple, full ROM Respiratory: no rales, no rhonchi, wheezing present Cardiovascular: RRR, no significant murmur Gastrointestinal: soft, non-tender, no distention, positive bowel sounds Musculoskeletal: no edema, pulses present Neurological: non-focal, normal sensation, moves all 4 limbs Psychiatric: normal affect, A&O x 3 Skin: no rash Dx/Plan (1) Acute on chronic respiratory failure with hypoxemia Code(s): J96.21 - ACUTE AND CHRONIC RESPIRATORY FAILURE WITH HYPOXIA Status: Resolved (2) COPD exacerbation Code(s): J44.1 - CHRONIC OBSTRUCTIVE PULMONARY DISEASE W (ACUTE) EXACERBATION Status: Acute (3) Troponin level elevated Code(s): R74.8 - ABNORMAL LEVELS OF OTHER SERUM ENZYMES Status: Acute Comment: Likley demand ischemia from hypoxia (4) Anxiety and depression Code(s): F41.9 - ANXIETY DISORDER, UNSPECIFIED; F32.9 - MAJOR DEPRESSIVE DISORDER, SINGLE EPISODE, UNSPECIFIED Status: Chronic (5) Cardiomyopathy Code(s): I42.9 - CARDIOMYOPATHY, UNSPECIFIED Status: Chronic Qualifiers: (6) Dyslipidemia Code(s): E78.5 - HYPERLIPIDEMIA, UNSPECIFIED Status: Chronic (7) GERD (gastroesophageal reflux disease) Code(s): K21.9 - GASTRO-ESOPHAGEAL REFLUX DISEASE WITHOUT ESOPHAGITIS Status: Chronic Qualifiers: Esophagitis presence: without esophagitis Qualified Code(s): K21.9 - Gastro -esophageal reflux disease without esophagitis (8) HTN (hypertension) Code(s): I10 - ESSENTIAL (PRIMARY) HYPERTENSION Status: Chronic Qualifiers: Hypertension type: essential hypertension (9) Hypothyroidism Code(s): E03.9 - HYPOTHYROIDISM, UNSPECIFIED Status: Chronic (10) Obesity (BMI 30.0-34.9) Code(s): E66.9 - OBESITY, UNSPECIFIED Status: Chronic (11) AICD (automatic cardioverter/defibrillator) present Code(s): Z95.810 - PRESENCE OF AUTOMATIC (IMPLANTABLE) CARDIAC DEFIBRILLATOR Status: Acute (12) Chronic diastolic CHF (congestive heart failure) Code(s): I50.32 - CHRONIC DIASTOLIC (CONGESTIVE) HEART FAILURE Status: Chronic Comment: appears compensated for now - Plan PT/OT, respiratory therapy, out of bed/ambulate Home tomorrow if clinically better.PCCM following. -: cont nebs,steroids,empiric ABx. -: Home meds as below. -: am labs.OT/PT. -: HH on DC * . Review of Systems - Review of Systems Constitutional: Weakness, Malaise Respiratory: SOB with Excertion, Wheezing. negative: Cough, Dry, Shortness of Breath, Hemoptysis, Pleuritic Pain, Sputum Cardiovascular: negative: Chest Pain, Palpitations, Orthopnea, Paroxysmal Noc. Dyspnea, Edema, Light Headedness, Other Gastrointestinal: negative: Nausea, Vomiting, Abdominal Pain, Diarrhea, Constipation, Melena, Hematochezia, Other Genitourinary: negative: Dysuria, Frequency, Incontinence, Hematuria, Retention , Other Musculoskeletal: negative: Neck Pain, Shoulder Pain, Arm Pain, Back Pain, Hand Pain, Leg Pain, Foot Pain, Other Neurological: negative: Weakness, Numbness, Incoordination, Change in Speech, Confusion, Seizures, Other - Medications/Allergies Allergies/Adverse Reactions: Allergies Allergy/AdvReac Type Severity Reaction Status Date / Time codeine Allergy Verified 11/09/16 03:36 levofloxacin [From Levaquin] Allergy Verified 11/09/16 03:36 onion Allergy Verified 11/09/16 03:36 Penicillins Allergy Verified 11/09/16 03:36 Sulfa (Sulfonamide Allergy Verified 11/09/16 03:36 Antibiotics) Medications: Current Medications Acetaminophen (Tylenol) 650 mg PO Q4H PRN PRN Reason: Headache/Fever or Pain Al Hydroxide/Mg Hydroxide (Maalox) 30 ml PO Q6H PRN PRN Reason: Heartburn or Indigestion Albuterol/Ipratropium (Duoneb) 3 ml NEB [id number] [facility] Last Admin: 12/14/16 07:45 Dose: 3 ml Albuterol/Ipratropium (Duoneb) 3 ml NEB [id number] PRN PRN Reason: SOB &/or Wheezing Artificial Tears (Tears Naturale) 0 drop EA EYE PRN PRN PRN Reason: Dry Eyes Aspirin (Aspirin Chewable) 81 mg PO DAILY [facility] Last Admin: 12/14/16 09:53 Dose: 81 mg Atorvastatin Calcium (Lipitor) 80 mg PO HS [facility] Last Admin: 12/13/16 20:12 Dose: 80 mg Benzonatate (Tessalon) 100 mg PO Q4H PRN PRN Reason: Cough Buspirone HCl (Buspar) 15 mg PO BID [facility] Last Admin: 12/14/16 09:53 Dose: 15 mg Calcium Carbonate (Tums) 1,000 mg PO Q4H PRN PRN Reason: Heartburn or Indigestion Carvedilol (Coreg) 3.125 mg PO BID[facility] Last Admin: 12/14/16 09:53 Dose: 3.125 mg Digoxin (Lanoxin) 0.125 mg PO DAILY [facility] Last Admin: 12/14/16 09:54 Dose: 0.125 mg Ezetimibe (Zetia) 10 mg PO DAILY [facility] Last Admin: 12/14/16 09:54 Dose: 10 mg Enoxaparin Sodium (Lovenox) 40 mg SC 0900 [facility] Last Admin: 12/14/16 09:52 Dose: 40 mg Fluoxetine HCl (Prozac) 20 mg PO DAILY [facility] Last Admin: 12/14/16 09:53 Dose: 20 mg Furosemide (Lasix) 80 mg PO 0900,1400 [facility] Last Admin: 12/14/16 09:53 Dose: 80 mg Guaifenesin (Robitussin Sf) 200 mg PO Q4H PRN PRN Reason: Cough Guaifenesin (Mucinex) 600 mg PO TID [facility] Last Admin: 12/14/16 09:53 Dose: 600 mg Hydralazine HCl (Apresoline) 10 mg SLOW IVP Q4H PRN PRN Reason: Systolic BP > 180 Azithromycin 500 mg/ Sodium (Chloride) 250 mls @ 250 mls/hr IVPB 1200 [facility] Last Admin: 12/13/16 12:54 Dose: 250 mls Levothyroxine Sodium (Synthroid) 75 mcg PO 0600 [facility] Last Admin: 12/14/16 05:42 Dose: 75 mcg Lisinopril (Zestril) 2.5 mg PO DAILY [facility] Last Admin: 12/14/16 09:55 Dose: 2.5 mg Loperamide HCl (Imodium) 2 mg PO PRN PRN PRN Reason: Diarrhea/Loose Stools Loratadine (Claritin) 10 mg PO DAILYPRN PRN PRN Reason: Sinus Symptoms Magnesium Hydroxide (Milk Of Magnesium) 30 ml PO DAILYPRN PRN PRN Reason: Constipation Methylprednisolone Sodium Succinate (Solu-Medrol) 20 mg IVP Q6HR [facility] Last Admin: 12/14/16 05:42 Dose: 20 mg Mineral Oil/White Petrolatum (Eucerin Cream) 0 gm TOP BIDPRN PRN PRN Reason: Dry Skin Mometasone Furoate/Formoterol Fumar (Dulera 200 Mcg/5 Mcg Inhaler) 2 puff INH BID-RT [facility] Last Admin: 12/14/16 07:45 Dose: 2 puff Ondansetron HCl (Zofran Odt) 4 mg PO Q6H PRN PRN Reason: Nausea/Vomiting Ondansetron HCl (Zofran) 4 mg IVP Q6H PRN PRN Reason: Nausea/Vomiting Pantoprazole Sodium (Protonix) 40 mg PO DAILY [facility] Last Admin: 12/14/16 09:53 Dose: 40 mg Phenol (Chloraseptic [place] 180 Ml Bot) 0 ml PO PRN PRN PRN Reason: Sore Throat Potassium Chloride (Klor-Con 10) 10 meq PO QAM-WM [facility] Last Admin: 12/14/16 09:53 Dose: 10 meq Saccharomyces Boulardii (Florastor) 250 mg PO DAILY [facility] Last Admin: 12/14/16 09:53 Dose: 250 mg Senna (Senokot) 2 tab PO HSPRN PRN PRN Reason: Constipation Simethicone (Mylicon Chewable) 80 mg PO PCHS PRN PRN Reason: Gas Pain Last Admin: 12/11/16 10:08 Dose: 80 mg Sodium Chloride ([place] Nasal [place] 0.65%) 0 ml EA NARE QIDPRN PRN PRN Reason: Nasal Congestion Sodium Chloride (Flush - Normal Saline) 10 ml IVF PRN PRN PRN Reason: Saline Flush Last Admin: 12/13/16 16:06 Dose: 10 ml Sodium Chloride (Flush - Normal Saline) 10 ml IVF Q12HR [facility] Last Admin: 12/14/16 09:55 Dose: 10 ml Tramadol HCl (Ultram) 50 mg PO Q4H PRN PRN Reason: Moderate Pain (4-6) Last Admin: 12/13/16 20:12 Dose: 50 mg
[2016-12-14] MEDS ORDERED: Azithromycin 250 MG TAB PO SCH (11:00)
--- NOTE | 2016-12-14 15:03 | PRG ---
DATE OF SERVICE: 12/14/2016 SUBJECTIVE: Ms. Kelsy Gr is feeling better. She feels like she will be able to go home parviz orrow. She has no fever, chills, sweats or increased shortness of breath. She still gets short of breath moving about the room, which is better than she was yesterday. OBJECTIVE: VITAL SIGNS: She is afebrile. Heart rate is 85, respiratory rate is 20, oximetry is 96% on 3 liter s and blood pressure 141/65. LUNGS: Remarkable for end-expiratory wheezes. IMPRESSION AND PLAN: Chronic obstructive pulmonary disease exacerbation, slowly improving. Hopeful ly, she will be a candidate for discharge in the morning.
[2016-12-14] MEDS: traMADol HCl 50 MG TAB PO PRN ×2 (17:02→20:53)
[2016-12-14] MEDS: Atorvastatin Calcium 40 MG TAB PO SCH (20:53)
[2016-12-15] MEDS: traMADol HCl 50 MG TAB PO PRN ×2 (05:58→11:50)
[2016-12-15] MEDS: Levothyroxine Sodium 75 MCG TAB PO SCH (06:02)
[2016-12-15] MEDS: Mometasone/Formoterol 120 PUFF INHALER INH SCH (07:10)
--- NOTE | 2016-12-15 08:56 | PRG ---
DATE OF SERVICE: 12/15/2016 SUBJECTIVE: The patient is doing reasonably well and wants to go home. PHYSICAL EXAMINATION: VITAL SIGNS: Temperature is 97.7, pulse 79, respiration is 18, O2 sat on 98% on 3 liters, blood pre ssure 145/67. HEENT: Unremarkable. NECK: No JVD. LUNGS: Clear. CARDIAC: S1 and S2 regular. ABDOMEN: Soft. EXTREMITIES: No edema. ASSESSMENT: Chronic obstructive pulmonary disease with exacerbation. PLAN: From my standpoint, she looks stable for hospital discharge. I would send her home on tapere d prednisone over about 2 weeks.
[2016-12-15] MEDS ORDERED: Azithromycin 250 MG TAB PO SCH (09:00)
--- NOTE | 2016-12-15 09:24 | DIS ---
DATE OF ADMISSION: 12/10/2016 DATE OF DISCHARGE: 12/15/2016 DISCHARGE DIAGNOSES: 1. Acute on chronic hypoxemic respiratory failure. 2. Acute exacerbation of chronic obstructive pulmonary disease. 3. Demand ischemia. 4. History of anxiety and depression. 5. History of cardiomyopathy, unspecified. 6. Hyperlipidemia. 7. Hypertension. 8. Hypothyroidism. 9. Obesity with a BMI of 30-34.9. 10. Gastroesophageal reflux disease. 11. Implanted automatic implantable cardioverter/defibrillator. 12. Chronic diastolic congestive heart failure. CONSULTATIONS: Pulmonary Critical Care, Dr. Haro. PROCEDURES: None. HOSPITAL COURSE: Ms. Gr is a 71-year-old female admitted on 12/10/2016 after presenting with ac ebonie exacerbation of CHF. She was started on steroids, antibiotics, nebulizer treatments and her loren e medicines were resumed. HOSPITAL COURSE: The patient was admitted on 12/10/2016. Pulmonary was consulted and was seen by Janey Keyes on 12/11/2016. Overnight 12/10/2016 to 12/11/2016, the patient slowly improved. She was still having some chest tightness, but no fevers or chills and overall labs slowly improved. By 12/12/2016 she continued to improve. She was weaned down to 3 liters of oxygen. Pulmonary mau nued to tweak her medications, continued on azithromycin and IV steroids with nebulizer treatments. She was on Dulera in place of her normal Symbicort. By 12/13/2016 she continued to slowly improve. She was responding well to therapy with steroids and nebulizer treatments. She is down to her normal home dose of oxygen 3 liters nasal cannula. By 12/14/2016 she was almost ready for discharge, she felt more short of breath, so she was watched overnight. Today, she is having a good day, she feels at her baseline, is stable for discharge. She is going h ome with [facility]. PHYSICAL EXAMINATION: The patient was seen and examined on the day of discharge. Discharge plan an d disposition were discussed with the patient face to face at the bedside. DISCHARGE MEDICATIONS: 1. Albuterol sulfate 2.5 mg per 3 mL vial, 1 nebulizer treatment every 2 hours as needed for shortn ess of breath and wheezing. 2. Aspirin 81 mg daily. 3. Atorvastatin 80 mg daily. 4. Azithromycin 250 mg daily for 3 more days. 5. Tessalon Perles p.r.n. 6. Budesonide/formoterol 160/4.5 two puffs b.i.d. 7. Coreg 3.25 mg p.o. b.i.d. 8. Zaroxolyn 0.125 mg p.o. daily. 9. Zetia 10 mg at bedtime. 10. Fluoxetine 20 mg daily. 11. Lasix 80 mg p.o. b.i.d. 12. DuoNeb 3 mL nebulizer every 6 hours scheduled. 13. Levothyroxine 75 mcg daily. 14. Lisinopril 2.5 mg daily. 15. Potassium chloride 10 mEq daily. 16. Florastor 250 mg p.o. daily. 17. Simethicone p.r.n. 18. Buspirone 15 mg p.o. b.i.d., 19. Guaifenesin ER 600 mg p.o. t.i.d. 20. Prednisone 40 mg p.o. q.a.m., decreasing by 10 mg every 3 days until tapered off. New prescrip tion sent. 21. Tramadol 50 mg p.o. t.i.d. p.r.n. pain. DISPOSITION: The patient is being discharged to home via private vehicle. FOLLOWUP: 1. [facility] on arrival to home. 2. Primary care physician, Dr. Mayorga within a week. 3. Pulmonary per their schedule.
[2016-12-15] MEDS: guaiFENesin ER 600 MG TAB PO SCH (09:25)
[2016-12-15] MEDS: Potassium Chloride 10 MEQ TAB PO SCH (09:25)
[2016-12-15] MEDS: Furosemide 40 MG TAB PO SCH (09:25)
[2016-12-15] MEDS: busPIRone HCl 5 MG TAB PO SCH (09:25)
[2016-12-15] MEDS: Lisinopril 2.5 MG TAB PO SCH (09:26)
[2016-12-15] MEDS: Carvedilol 3.125 MG TAB PO SCH (09:26)
[2016-12-15] MEDS: Saccharomyces boulardii 250 MG CAP PO SCH (09:26)
[2016-12-15] MEDS: Digoxin 0.125 MG TAB PO SCH (09:26)
[2016-12-15] MEDS: Ezetimibe 10 MG TAB PO SCH (09:26)
[2016-12-15] MEDS: FLUoxetine HCl 20 MG CAP PO SCH (09:27)
[2016-12-15] MEDS: Enoxaparin Sodium 40 MG/0.4 ML SYRINGE SC SCH (09:27)
[2016-12-15 11:47] VITALS: BP 140/65; TEMP 98.6
== END 2016-12-15 14:44 | disposition home health service (06) | DRG 190 ==
LOC: ERS 10:27 → 2NO 13:24
PROVIDERS: ADMIT Internal Medicine; ATTEND Internal Medicine
DX: J44.1 Chronic obstructive pulmonary disease with (acute) exacerbation (principal); J96.21 Acute and chronic respiratory failure with hypoxia; I24.8 Other forms of acute ischemic heart disease; J96.22 Acute and chronic respiratory failure with hypercapnia; I50.32 Chronic diastolic (congestive) heart failure; I42.9 Cardiomyopathy, unspecified; I11.0 Hypertensive heart disease with heart failure; Z99.81 Dependence on supplemental oxygen; E78.5 Hyperlipidemia, unspecified; Z95.0 Presence of cardiac pacemaker; F41.9 Anxiety disorder, unspecified; F32.9 Major depressive disorder, single episode, unspecified; Z87.891 Personal history of nicotine dependence; Z88.5 Allergy status to narcotic agent; Z88.0 Allergy status to penicillin; Z88.2 Allergy status to sulfonamides; Z79.82 Long term (current) use of aspirin; Z79.51 Long term (current) use of inhaled steroids; E03.9 Hypothyroidism, unspecified; K21.9 Gastro-esophageal reflux disease without esophagitis; E66.9 Obesity, unspecified; Z68.34 Body mass index [BMI] 34.0-34.9, adult
CPT/HCPCS: 36415; 71010; 80048; 80053; 82550; 82553; 82805; 83880; 84484; 85025; 90471; 90682; 90732; 93005; 94640; 94760; 96365; 96368; 96375; A4216; G0008; G0009; J0456; J1650; J2920; J2930; J3475; J7050; J7620; Q2036

== ENCOUNTER 2018-04-27 01:35 | Observation (INO) | payer MEDICARE ==
[2018-04-27 02:07] LABS: #Eosinphils 0.2 thou/uL (0.0-0.7); #Lymphocytes 1.7 thou/uL (1.20-3.40); #Monocytes 0.7 thou/uL (0.11-0.59); #Neutrophils 10.7 thou/uL (1.40-6.50); %Basophils 0.3 % (0.0-1.0); %Eosinophils 1.2 % (0.0-10.0); %Lymphocytes 12.5 % (21.0-51.0); %Monocytes 5.4 % (0.0-10.0); %Neutrophils 80.6 % (42.0-75.0); Hemoglobin 12.4 g/dL (12.0-16.0); Mean Corpuscular HGB CONC 31.8 g/dL (32.0-36.0); Mean Corpuscular Hemoglobin 28.9 pg (27.0-31.0); Mean Platelet Volume 6.2 fL (7.4-10.4); Platelet Count 330 thou/uL (130-400); RBC Distribution Width 13.6 % (11.5-14.5); Red Blood Cell (RBC) Count 4.29 mill/uL (4.20-5.40); White Blood Cell (WBC) Count 13.2 thou/uL (4.8-10.8)
[2018-04-27 02:27] LABS: ALT (SGPT) 24 U/L (8-55); AST (SGOT) 21 U/L (5-34); Albumin 3.9 g/dL (3.4-4.8); Alkaline Phosphatase 93 U/L (40-150); Anion Gap 16 mmol/L (10-20); BUN (Urea Nitrogen) 29 mg/dL (9.8-20.1); Bilirubin, Total 0.4 mg/dL (0.2-1.2); Calc. Creatinine Clearance 0 mL/min (70-130); Calcium 8.9 mg/dL (7.8-10.44); Carbon Dioxide 35 mmol/L (23-31); Chloride 87 mmol/L (98-107); Estimated GFR-MDRD 49; Globulin 3.2 g/dL (2.4-3.5); Glucose 172 mg/dL (83-110); Potassium 3.2 mmol/L (3.5-5.1); Protein, Total 7.1 g/dL (6.0-8.3); Sodium 135 mmol/L (136-145)
[2018-04-27] MEDS ORDERED: traMADol HCl 50 MG TAB ONE (03:40)
[2018-04-27] MEDS: cefTRIAXone\\ROCEPHIN 1 GM in Sodium Chloride 0.9% 100 ML IVPB SCH (07:13)
--- NOTE | 2018-04-27 07:50 | RAD ---
SINGLE VIEW OF THE CHEST: COMPARISON: 12/10/2016. HISTORY: Shortness of breath. FINDINGS: A single view of the chest shows a normal size cardiomediastinal silhouette. The pacemaker is unchan ged in position. Atherosclerotic calcifications are seen in the aorta. There is no evidence of cons olidation, mass, or pleural effusion. IMPRESSION: No evidence of acute cardiopulmonary disease. POS: [facility]
[2018-04-27] MEDS: Azithromycin 500 MG in Sodium Chloride 0.9% 250 ML 250 ML IVPB SCH (09:00)
[2018-04-27] MEDS ORDERED: Acetaminophen 325 MG TAB ONE (10:03)
[2018-04-27] MEDS ORDERED: methylPREDNISolone Sod Succ 40 MG VIAL ONE (10:04)
[2018-04-27] MEDS: methylPREDNISolone Sod Succ 40 MG VIAL IVP SCH ×3 (10:14→17:31)
[2018-04-27 12:03] VITALS: BMI 28.5
[2018-04-27] MEDS ORDERED: Ondansetron PF 4 MG/2 ML Vial IVP PRN (12:16)
[2018-04-27] MEDS ORDERED: Ondansetron ODT 4 MG TAB PO PRN (12:16)
[2018-04-27] MEDS ORDERED: Acetaminophen 325 MG TAB PO PRN (12:17)
[2018-04-27] MEDS ORDERED: Albuterol Sulfate 2.5 mg/3 ml Neb NEB PRN (15:52)
[2018-04-27] MEDS ORDERED: Simethicone Chewable 80 MG TAB PO PRN (15:52)
[2018-04-27] MEDS ORDERED: Metolazone 5 MG TAB PO PRN (15:52)
[2018-04-27] MEDS: Carvedilol 3.125 MG TAB PO SCH (17:30)
[2018-04-27] MEDS: traMADol HCl 50 MG TAB PO PRN (17:30)
[2018-04-27] MEDS: Mometasone/Formoterol 120 PUFF INHALER INH SCH (18:57)
[2018-04-27] MEDS: busPIRone HCl 10 MG TAB PO SCH (20:03)
[2018-04-27] MEDS: guaiFENesin ER 600 MG TAB PO SCH (20:03)
[2018-04-27] MEDS: Furosemide 80 MG TAB PO SCH (20:03)
--- NOTE | 2018-04-27 22:06 | HP ---
CHIEF COMPLAINT: Shortness of breath and cough. HISTORY OF PRESENT ILLNESS: The patient is a 73-year-old female with past medical history of COPD on oxygen at home 3 L by nasal cannula, who presented to the emergency room with 2-day history of shortness of breath and cough. Despite of all her treatments she used at home, she was not able to stay home and she called EMS and was taken to the emergency room for further evaluation. She was started on magnesium, Solu-Medrol, DuoNebs, and fluids while on the way to the emergency room. PAST MEDICAL HISTORY: Positive for, 1. Chronic obstructive pulmonary disease. 2. Hyperlipidemia. 3. Hypertension. 4. Pneumonia in 2013. 5. Left broken wrist. 6. Back fracture in 2011. PAST SURGICAL HISTORY: 1. Cholecystectomy. 2. Defibrillator placement. 3. Tubal ligation. 4. Pace maker placement. SOCIAL HISTORY: She used to smoke for approximately 30 years, 1-1/2 pack per day, but she quit 4 years ago. She does not use any alcohol. She does not use any illicit drugs. MEDICATIONS: 1. Buspirone 50 mg twice a day. 2. Potassium chloride 10 mEq twice a day. 3. Furosemide 80 mg twice a day. 4. Aspirin 81 mg once a day. 5. Levothyroxine 75 mcg once a day. 6. Digoxin 125 mcg once a day. 7. Fluoxetine 20 mg once a day. 8. Atorvastatin 80 mg once a day. 9. Metolazone 5 mg as needed. 10. Tramadol 50 mg 3 times a day. 11. Zetia 10 mg once a day. 12. Carvedilol 3.125 mg daily. 13. Guaifenesin. ALLERGIES: 1. CODEINE. 2. PENICILLIN. 3. SULFA. PRIMARY CARE PHYSICIAN: Dr. Mayorga. ADMINISTRATIVE SERVICES ASSISTANT: Dr. Florian. ASSISTANT PROFESSOR OF PHILOSOPHY: Dr. Keyes. SURROGATE DECISION MAKER: Beatriz Gutiérrez, her sister. FAMILY HISTORY: Father at the age of 78 of cancer. Mother had COPD and she at the age of 82. PHYSICAL EXAMINATION: VITAL SIGNS: Blood pressure is 118/56, pulse is 103, respirations 20, O2 saturation is 93% on 3 L by nasal cannula, temperature is 99.1. HEENT: Head is atraumatic and normocephalic. Eyes are PERRLA. Sclerae nonicteric. Oral mucosa is somewhat dry. NECK: Supple. LUNGS: Bilateral crackles at both bases and few wheezes bilaterally. HEART: S1 and S2. Tachycardic. No S3. No S4. ABDOMEN: Soft, obese, and nontender. EXTREMITIES: No clubbing, cyanosis, or edema. NEUROLOGICAL: She is alert and oriented x4. There is no any motor or sensory deficit present. Cranial nerves are intact. LABORATORY DATA: Labs showed white count of 13.2, hemoglobin 12.4, hematocrit 39.0, platelet count is 330,000. Sodium of 135, potassium 3.2, chloride 87, CO2 of 35, BUN 29, creatinine 1.09. The rest of chemistry within normal limits except for glucose which is 172. Chest x-ray, personally reviewed by me, showed no evidence of acute cardiopulmonary disease. EKG, personally reviewed by me, showed electronic ventricular pacemaker. IMPRESSION: 1. Exacerbation of chronic obstructive pulmonary disease, acute on chronic. 2. Hyperlipidemia. 3. Hypertension. 4. Hypokalemia. PLAN: Full admission. Condition is fair. Her activity is bedrest and bathroom privileges. IV Hep-Lock, IV steroids, Solu-Medrol 40 every 6 hours. Continue her home medications of DuoNebs q.4 hours. Inhaled steroid in the form of budesonide 2 puffs twice a day. She was started on azithromycin and ceftriaxone in the emergency room and we are going to continue that. We will do DVT prophylaxis with SCDs and Lovenox. Job ID: [id number]
[2018-04-28] MEDS: methylPREDNISolone Sod Succ 40 MG VIAL IVP SCH ×5 (00:08→23:47)
[2018-04-28] MEDS: cefTRIAXone\\ROCEPHIN 1 GM in Sodium Chloride 0.9% 100 ML IVPB SCH (03:40)
[2018-04-28] MEDS: Azithromycin 500 MG in Sodium Chloride 0.9% 250 ML 250 ML IVPB SCH (04:15)
[2018-04-28 06:26] LABS: #Lymphocytes 0.8 thou/uL (1.20-3.40); #Monocytes 0.5 thou/uL (0.11-0.59); #Neutrophils 10.7 thou/uL (1.40-6.50); %Basophils 0.2 % (0.0-1.0); %Eosinophils 0.1 % (0.0-10.0); %Neutrophils 88.7 % (42.0-75.0); Mean Corpuscular HGB CONC 31.4 g/dL (32.0-36.0); Mean Corpuscular Hemoglobin 28.5 pg (27.0-31.0); Mean Corpuscular Volume 90.8 fL (78.0-98.0); Mean Platelet Volume 6.4 fL (7.4-10.4); Platelet Count 294 thou/uL (130-400); RBC Distribution Width 13.8 % (11.5-14.5); Red Blood Cell (RBC) Count 3.87 mill/uL (4.20-5.40)
[2018-04-28 06:45] LABS: BUN (Urea Nitrogen) 29 mg/dL (9.8-20.1); Calc. Creatinine Clearance 66 mL/min (70-130); Calcium 8.9 mg/dL (7.8-10.44); Estimated GFR-MDRD 68; Glucose 153 mg/dL (83-110)
[2018-04-28 06:54] LABS: Anion Gap 18 mmol/L (10-20); Carbon Dioxide 33 mmol/L (23-31); Chloride 92 mmol/L (98-107); Potassium 3.4 mmol/L (3.5-5.1); Sodium 140 mmol/L (136-145)
[2018-04-28] MEDS: Mometasone/Formoterol 120 PUFF INHALER INH SCH ×2 (07:21→19:01)
[2018-04-28] MEDS: Enoxaparin Sodium 40 MG/0.4 ML SYRINGE SC SCH (09:04)
[2018-04-28] MEDS: Aspirin Chewable 81 MG TAB PO SCH (09:05)
[2018-04-28] MEDS: Furosemide 80 MG TAB PO SCH ×2 (09:05→20:50)
[2018-04-28] MEDS: Atorvastatin Calcium 40 MG TAB PO SCH (09:05)
[2018-04-28] MEDS: Potassium Chloride 10 MEQ TAB PO SCH (09:05)
[2018-04-28] MEDS: Carvedilol 3.125 MG TAB PO SCH ×2 (09:05→16:49)
[2018-04-28] MEDS: Digoxin 0.125 MG TAB PO SCH (09:06)
[2018-04-28] MEDS: guaiFENesin ER 600 MG TAB PO SCH ×2 (09:06→20:49)
[2018-04-28] MEDS: FLUoxetine HCl 20 MG CAP PO SCH (09:06)
[2018-04-28] MEDS: Levothyroxine Sodium 75 MCG TAB PO SCH (09:06)
[2018-04-28] MEDS: Loratadine 10 MG TAB PO SCH (09:06)
[2018-04-28] MEDS: traMADol HCl 50 MG TAB PO PRN ×3 (09:06→23:46)
[2018-04-28] MEDS: Ezetimibe 10 MG TAB PO SCH (09:09)
--- NOTE | 2018-04-28 13:33 | PRG ---
DATE OF SERVICE: 04/28/2018 SUBJECTIVE: The patient is seen and examined at the bedside. She feels significantly better. She is sitting up and eating her breakfast during my visit. She is very pleased with the progress we are making. OBJECTIVE: VITAL SIGNS: Blood pressure is 104/53, pulse is 80, temperature is 98.1, respirations 26, O2 saturation is 94% on 3 L by nasal cannula. HEENT: Her eyes are PERRLA. Sclerae nonicteric. Oral mucosa is moist. NECK: Supple. LUNGS: Few rales and crackles bilaterally at both bases and few wheezes. HEART: S1, S2 normal. ABDOMEN: Soft, nontender. EXTREMITIES: No clubbing, cyanosis, or edema. NEUROLOGICAL: She is alert and oriented x4. There is no any motor deficits. LABORATORY DATA: White count of 12.0, hemoglobin 11.0, hematocrit 35.1, platelet count is 294,000. Chemistry showed sodium of 140, potassium 3.4, chloride 92, CO2 33, BUN 29, creatinine 0.83, and glucose is 153. IMPRESSION: 1. Acute exacerbation of chronic obstructive pulmonary disease, significantly improved on additional treatment with IV antibiotic, IV steroids, and DuoNeb. 2. Hyperlipidemia. 3. Hypertension, chronic. 4. Hypokalemia to be replaced. The patient improved quickly and I believe that she should be ready to go home in the next 24 to 48 hours. Job ID: [id number]
[2018-04-28] MEDS: busPIRone HCl 10 MG TAB PO SCH (20:50)
[2018-04-29] MEDS: cefTRIAXone\\ROCEPHIN 1 GM in Sodium Chloride 0.9% 100 ML IVPB SCH (03:16)
[2018-04-29] MEDS: Azithromycin 500 MG in Sodium Chloride 0.9% 250 ML 250 ML IVPB SCH (03:51)
[2018-04-29] MEDS: methylPREDNISolone Sod Succ 40 MG VIAL IVP SCH ×2 (06:14→12:49)
[2018-04-29] MEDS: Mometasone/Formoterol 120 PUFF INHALER INH SCH (07:00)
[2018-04-29] MEDS: FLUoxetine HCl 20 MG CAP PO SCH (07:36)
[2018-04-29] MEDS: Carvedilol 3.125 MG TAB PO SCH (07:36)
[2018-04-29] MEDS: traMADol HCl 50 MG TAB PO PRN ×2 (07:36→12:53)
[2018-04-29] MEDS: Ezetimibe 10 MG TAB PO SCH (07:36)
[2018-04-29] MEDS: Atorvastatin Calcium 40 MG TAB PO SCH (07:36)
[2018-04-29] MEDS: Potassium Chloride 10 MEQ TAB PO SCH (07:37)
[2018-04-29] MEDS: Digoxin 0.125 MG TAB PO SCH (07:37)
[2018-04-29] MEDS: guaiFENesin ER 600 MG TAB PO SCH (07:37)
[2018-04-29] MEDS: Loratadine 10 MG TAB PO SCH (07:37)
[2018-04-29] MEDS: Furosemide 80 MG TAB PO SCH (07:37)
[2018-04-29] MEDS: Aspirin Chewable 81 MG TAB PO SCH (07:37)
[2018-04-29] MEDS: Levothyroxine Sodium 75 MCG TAB PO SCH (07:37)
[2018-04-29] MEDS: Enoxaparin Sodium 40 MG/0.4 ML SYRINGE SC SCH (07:39)
[2018-04-29 09:40] VITALS: TEMP 98
--- NOTE | 2018-04-29 12:46 | DIS ---
DATE OF ADMISSION: 04/27/2018 DATE OF DISCHARGE: 04/29/2018 FINAL DIAGNOSES: 1. Acute exacerbation of chronic obstructive pulmonary disease. 2. Hyperlipidemia. 3. Hypertension. 4. Hypokalemia. HOSPITAL COURSE: The patient was a 73-year-old female with past medical history of COPD, on home oxygen at 3 L by nasal cannula, who presented to the emergency room with 2-day history of shortness of breath and cough. She was evaluated in the emergency room, was found to have white count elevated at 13.2, hemoglobin 12.4, hematocrit 39.0, platelet count 330,000. Potassium was 3.2, sodium 135, CO2 35, BUN 29, creatinine 1.09. Chest x-ray did not show any acute cardiopulmonary disease. EKG showed electronic ventricular pacemaker. The patient got admitted to the hospital with IV steroids every 6 hours, DuoNeb, and ceftriaxone IV. The patient did very well. She improved quickly. Her COPD is to the point that she can be discharged home today. PHYSICAL EXAMINATION: VITAL SIGNS: Blood pressure is 126/60, pulse is 94, temperature is 98, respiratory rate is 20. On 3 L by nasal cannula, she is saturating about 95%. HEENT: Her head is atraumatic and normocephalic. Eyes are PERRLA. Sclerae nonicteric. Oral mucosa is moist. NECK: Supple. LUNGS: Emphysematous. A few rales bilaterally at both bases. No wheezing. HEART: S1 and S2 normal. No S3. No S4. ABDOMEN: Soft, nontender. EXTREMITIES: No clubbing, cyanosis, or edema. NEUROLOGICAL: She is alert and oriented x4. There is no any motor deficits. DISPOSITION: She is discharged home in good condition. ACTIVITIES: As tolerated. DIET: Heart healthy. MEDICATIONS: At the time of discharge, she will have prescription for prednisone 40 mg daily and times additional 3 days and a prescription for doxycycline 100 mg twice a day for additional 5 days. She will continue her aspirin 81 mg once a day, atorvastatin 80 mg at bedtime, buspirone 15 mg at bedtime, carvedilol 3.125 mg twice a day, digoxin 0.125 mg once a day, Zetia 10 mg once a day, Prozac 20 mg once a day, furosemide 80 mg twice a day, levothyroxine 75 mcg every morning, Claritin 10 mg once a day, metolazone 5 mg p.r.n. as needed, Dulera 200 mcg/5 mcg inhalers two puffs twice a day, potassium chloride 10 mEq once a day, and tramadol p.r.n. DISCHARGE INSTRUCTIONS: She will follow up with Dr. Mayorga, her primary care physician in 1 week and p.r.n. with her community engagement coordinator, Dr. Keyes and Dr. Florian as needed. The patient was seen and examined before she is discharged and the discharge time is less than 30 minutes. Job ID: [id number]
[2018-04-29 13:23] VITALS: BP 109/63
--- NOTE | 2018-05-01 19:39 | EKG ---
Test Reason : SOB Blood Pressure : / mmHG Vent. Rate : 103 BPM Atrial Rate : 103 BPM P-R Int : 072 ms QRS Dur : 158 ms QT Int : 440 ms P-R-T Axes : 076 223 -18 degrees QTc Int : 576 ms Electronic ventricular pacemaker Confirmed by KORI PALACIO [id number]), editor in chief KHALIDA RENEE ([id number] on 05/01/2018 7:38:44 PM Referred By: SIMONA PALACIO Confirmed By:KORI PALACIO
== END 2018-04-29 14:20 | disposition home or self-care (01) ==
LOC: ERS 01:35 → ERHOLD 02:59 → 2SW 11:43
PROVIDERS: ADMIT Hospitalist; ATTEND Hospitalist
DX: J44.1 Chronic obstructive pulmonary disease with (acute) exacerbation (principal); E78.5 Hyperlipidemia, unspecified; E87.6 Hypokalemia; I10 Essential (primary) hypertension; Z86.711 Personal history of pulmonary embolism; Z87.891 Personal history of nicotine dependence; Z90.49 Acquired absence of other specified parts of digestive tract; Z98.51 Tubal ligation status; Z95.0 Presence of cardiac pacemaker; Z88.5 Allergy status to narcotic agent; Z88.0 Allergy status to penicillin; Z88.2 Allergy status to sulfonamides; Z88.1 Allergy status to other antibiotic agents; Z91.018 Allergy to other foods; Z79.82 Long term (current) use of aspirin; Z79.2 Long term (current) use of antibiotics; Z79.52 Long term (current) use of systemic steroids; Z79.899 Other long term (current) drug therapy
CPT/HCPCS: 71045; 80048; 80053; 83880; 84484; 85025 ×2; 93005; 94640 ×6; 94760; 96361; 96365; 96366 ×2; 96367; 96372 ×2; 96375; 96376 ×3; 97139 ×2; 99285; G0378 ×2; 36415; 96360; J0456; J0696; J1650; J2920; J7050; J7620; Q0162

== ENCOUNTER 2018-05-19 19:11 | Inpatient (IN) | payer MEDICARE ==
[2018-05-19] MEDS ORDERED: Magnesium 2 GM/50 ML BAG (IN WATER) ONE (19:36)
[2018-05-19 19:51] LABS: #Eosinphils 0.1 thou/uL (0.0-0.7); #Lymphocytes 1.1 thou/uL (1.20-3.40); #Monocytes 0.6 thou/uL (0.11-0.59); #Neutrophils 9.8 thou/uL (1.40-6.50); %Basophils 0.2 % (0.0-1.0); %Eosinophils 1.2 % (0.0-10.0); %Lymphocytes 9.3 % (21.0-51.0); %Monocytes 5.2 % (0.0-10.0); %Neutrophils 84.1 % (42.0-75.0); Hemoglobin 12.1 g/dL (12.0-16.0); Mean Corpuscular HGB CONC 32.7 g/dL (32.0-36.0); Mean Corpuscular Hemoglobin 28.8 pg (27.0-31.0); Mean Corpuscular Volume 88.1 fL (78.0-98.0); Mean Platelet Volume 6.8 fL (7.4-10.4); Platelet Count 391 thou/uL (130-400); Red Blood Cell (RBC) Count 4.19 mill/uL (4.20-5.40); White Blood Cell (WBC) Count 11.7 thou/uL (4.8-10.8)
[2018-05-19 20:13] LABS: ALT (SGPT) 20 U/L (8-55); AST (SGOT) 25 U/L (5-34); Albumin 3.4 g/dL (3.4-4.8); Alkaline Phosphatase 109 U/L (40-150); BUN (Urea Nitrogen) 63 mg/dL (9.8-20.1); Bilirubin, Total 0.5 mg/dL (0.2-1.2); Calc. Creatinine Clearance 0 mL/min (70-130); Calcium 9.7 mg/dL (7.8-10.44); Estimated GFR-MDRD 27; Globulin 3.1 g/dL (2.4-3.5); Glucose 159 mg/dL (83-110); Protein, Total 6.5 g/dL (6.0-8.3)
[2018-05-19 20:15] LABS: Chloride 76 mmol/L (98-107); Sodium 129 mmol/L (136-145)
[2018-05-19 20:17] LABS: Bilirubin Negative (Negative); Blood, Urine Negative (Negative); Clarity CLEAR (Clear); Glucose, Urine (Dipstick) Negative (Negative); Leukocyte Negative (Negative); Nitrite Negative (Negative); Protein, Urine (Dipstick) Negative (Neg-Trace); Specific Gravity, Urine 1.013 (1.002-1.036); Urobilinogen 0.2 mg/dL (0.2-1.0); pH, Urine 5.5 (5.0-9.0)
[2018-05-19 20:22] LABS: Anion Gap 19 mmol/L (10-20); Carbon Dioxide 39 mmol/L (23-31)
[2018-05-19 20:26] LABS: Potassium 2.7 mmol/L (3.5-5.1)
[2018-05-19] MEDS ORDERED: Potassium Chloride 20 MEQ TAB ONE (20:55)
--- NOTE | 2018-05-19 21:22 | RAD ---
PORTABLE AP CHEST X-RAY 05/19/18 HISTORY: Shortness of breath which started three days ago. COMPARISON: 04/27/18. FINDINGS: Triple lead left subclavian AICD device remains in place. The cardiac silhouette is within normal storm its. There is minimal patchy parenchymal density in the right mid lung zone and at the right lung base whi ch was not appreciated on the prior study and could be related to focal areas of pneumonitis. Mild in creased density seen at the left lung base is overall similar to the prior exam as well as prior stud y in 2017 and may be related to areas of scarring. Vascular calcifications seen in the thoracic aorta. Degenerative changes are present in the spine. No other interval change. IMPRESSION: 1. Minimal patchy densities in the right mid lung zone and at the right lung base which could be related to focal areas of pneumonitis. 2. Stable parenchymal densities in the left infrahilar region and left lung base, which may be a ttributable to mild chronic lung changes. POS: [facility]
[2018-05-19 21:45] LABS: Actual Bicarbonate (HCO3a) 47.6 mEq/L (22-28); Analyzer IN Cardio ER; Base Excess (BEa) 19.4 mEq/L (-2.0 to +3.0); Calcium, Ionized 1.09 mmol/L (1.12-1.30); Carboxyhemoglobin (COHb) 0.8 gm% (0.0-3.0); Hemoglobin (Hb) 13.3 g/dL (12.0-16.0); Potassium - ABG Lab 3.15 mmol/L (3.70-5.30); pH, Arterial 7.44 (7.35-7.45)
[2018-05-19 21:47] LABS: CO2 Tension 72.2 mmHg (35.0-45.0); O2 Tension (PaO2) 58.4 mmHg (> 70.0)
[2018-05-19] MEDS ORDERED: Potassium Chloride 20 MEQ in Premix Bag 1 BAG IVPB SCH (22:00)
[2018-05-19 23:27] VITALS: BMI 26.2
[2018-05-20] MEDS ORDERED: Acetaminophen 325 MG TAB PO PRN (04:09)
[2018-05-20] MEDS ORDERED: Benzonatate 100 MG CAP PO PRN (04:09)
[2018-05-20] MEDS ORDERED: hydrALAZINE 20 MG/ML VIAL SLOW IVP PRN (04:09)
--- NOTE | 2018-05-20 04:37 | HP ---
PRIMARY CARE PHYSICIAN: Dr. Early. CHIEF COMPLAINT: Trouble breathing. HISTORY OF PRESENT ILLNESS: Ms. Gr is a very pleasant 73-year-old female, who has a history of COPD and hypertension. She was actually just recently discharged from the hospital for COPD exacerbation. She was at home for only a few days before she started getting short of breath again. She says that she was trying to take her breathing treatments, but it was not helping. She says she was taking up to 8 or 9 breathing treatments a day. She was having a cough, but she says it is about the same, which is productive of some whitish sputum, but she says she got to the point where she could not eat because she was so short of breath. She denies having any chest pain, no palpitations, no fevers, no chills, but just mainly short of breath. She says she has had some leg swelling, but this is "all the time" and has not changed and as a result of her shortness of breath, she came to the ER for evaluation and she is being placed in observation for COPD exacerbation. REVIEW OF SYSTEMS: All systems were reviewed and are negative except for that mentioned in the history of present illness. PAST MEDICAL HISTORY: Significant for: 1. Chronic respiratory failure with hypoxemia due to chronic obstructive pulmonary disease. 2. Hyperlipidemia. 3. Hypertension. 4. History of wrist fracture on the left. 5. Back fracture. PAST SURGICAL HISTORY: She has had a cholecystectomy, placement of a defibrillator, bilateral tubal ligation, and a pacemaker. ALLERGIES: CODEINE, PENICILLIN, AND SULFA. FAMILY HISTORY: Significant for diabetes mellitus in her mother and cancer. SOCIAL HISTORY: She is . She is a former smoker. She quit 5 years ago. Prior to that, she smoked 2 packs a day for 25 years. She would like to be a DNAR and her surrogate decision maker is her sister, Beatriz Mcnulty. CURRENT MEDICATIONS: 1. Atorvastatin 80 mg daily. 2. BuSpar 15 mg twice daily. 3. Carvedilol 3.125 mg twice a day. 4. Digoxin 0.125 mg daily. 5. Zetia 10 mg p.o. daily. 6. Prozac 20 mg p.o. daily. 7. Furosemide 80 mg twice a day. 8. Levothyroxine 75 mcg p.o. daily. 9. Metolazone 5 mg p.o. daily. 10. Potassium chloride 10 mEq twice a day. 11. Tramadol 50 mg t.i.d. PHYSICAL EXAMINATION: GENERAL: She is alert and oriented. She appears to be in no acute distress. VITAL SIGNS: Blood pressure is 110/68, heart rate 88, respiratory rate of 20, temperature is 97.9, and O2 saturation is 3 L on nasal cannula. HEENT: Her pupils are equal, round, and reactive. Extraocular muscles are intact. Her sclerae are anicteric. Throat, there is no erythema, no exudates. NECK: No adenopathy. No bruits. LUNGS: She has some tight expiratory wheeze and decreased air movement bilaterally. No rhonchi and no rales. CARDIOVASCULAR: She has a normal S1 and S2. I did not appreciate an S3 or S4. No murmurs, clicks, or rubs. ABDOMEN: Soft, it is nontender and nondistended. Positive for bowel sounds. There is no rebound or guarding. No organomegaly. EXTREMITIES: She has trace lower extremity edema. There is no erythema, no redness, no warmth. She has palpable dorsalis pedis pulses. NEUROLOGIC: Her cranial nerves 2 through 12 are intact. Muscle strength is intact. SKIN AND INTEGUMENT: No significant skin changes or rash. LABORATORY DATA: ABG; pH is 7.4, pCO2 72.2, PO2 58.4. Urinalysis was negative. Sodium 129, potassium 2.7, chloride is 76, CO2 is 39, BUN of 63, creatinine 1.81. White blood cell count 11.7, hemoglobin 12.1, hematocrit 36.9, and platelet count 391. ASSESSMENT: This is a pleasant 73-year-old female, who is being admitted for acute on chronic respiratory failure with hypoxemia due to a chronic obstructive pulmonary disease exacerbation. She also has hypokalemia, hyponatremia, and what appears to be acute renal failure, likely due to volume depletion. She will be admitted due to the multiple medical problems and electrolyte derangements. 1. With regard to the chronic obstructive pulmonary disease exacerbation and acute on chronic respiratory failure, we will continue the DuoNebs, place her on IV steroids and an oral antibiotic and restart her home medications for this chronic obstructive pulmonary disease, which currently I do not see any. We will start her on a long-acting beta agonist and consult her records analyst. 2. Hypokalemia. This may be due to poor oral intake as she says she has not been eating lately. This, we will replace. We will also check a magnesium. 3. Hyponatremia. I suspect this is related to volume depletion. I will place her on IV saline administration and hold Lasix and check her thyroid function test. 4. Acute renal failure, likely the result of prerenal azotemia. We will hold Lasix and continue with fluid resuscitation. Job ID: [id number]
[2018-05-20] MEDS: Levothyroxine Sodium 75 MCG TAB PO SCH (06:03)
[2018-05-20] MEDS: Sodium Chloride 0.9% 1,000 ML IV SCH ×2 (06:04→17:14)
[2018-05-20] MEDS: Mometasone/Formoterol 120 PUFF INHALER INH SCH ×2 (06:13→19:06)
[2018-05-20] MEDS ORDERED: Potassium Chloride 20 MEQ TAB PO SCH ×2 (08:00→17:00)
[2018-05-20] MEDS: Famotidine 20 MG TAB PO SCH (08:45)
[2018-05-20] MEDS: Digoxin 0.125 MG TAB PO SCH (08:45)
[2018-05-20] MEDS: Carvedilol 3.125 MG TAB PO SCH ×2 (08:46→17:14)
[2018-05-20] MEDS: Atorvastatin Calcium 40 MG TAB PO SCH (08:46)
[2018-05-20] MEDS: busPIRone HCl 10 MG TAB PO SCH ×2 (08:47→20:59)
[2018-05-20] MEDS: Doxycycline 100 MG CAP PO SCH ×2 (08:48→20:59)
[2018-05-20] MEDS: Ezetimibe 10 MG TAB PO SCH (08:48)
[2018-05-20] MEDS: traMADol HCl 50 MG TAB PO SCH ×3 (08:48→20:59)
[2018-05-20] MEDS: FLUoxetine HCl 20 MG CAP PO SCH (08:48)
[2018-05-20] MEDS: methylPREDNISolone Sod Succ 40 MG VIAL IVP SCH (08:49)
[2018-05-20] MEDS: Heparin 5,000 UNITS/ML VIAL SC SCH ×3 (08:49→21:00)
[2018-05-20 09:24] LABS: BUN (Urea Nitrogen) 63 mg/dL (9.8-20.1); Calc. Creatinine Clearance 34 mL/min (70-130); Calcium 9.9 mg/dL (7.8-10.44); Estimated GFR-MDRD 34; Glucose 213 mg/dL (83-110); Magnesium 2.5 mg/dL (1.6-2.6)
[2018-05-20 09:33] LABS: Anion Gap 19 mmol/L (10-20); Carbon Dioxide 38 mmol/L (23-31); Chloride 81 mmol/L (98-107); Potassium 3.6 mmol/L (3.5-5.1); Sodium 134 mmol/L (136-145)
--- NOTE | 2018-05-20 13:58 | CON ---
DATE OF CONSULTATION: HISTORY OF PRESENT ILLNESS: Kelsy Gr is a 73-year-old female, who sees Dr. Keyes, presented with several day history of progressive respiratory failure, distress, and cough. She said she lost her appetite, unable to eat. X-ray yesterday shows nonspecific bilateral nodular infiltrates. She is on low-flow O2 at home at 3 L nebulizer several times a day. Denies any lower extremity swelling. Most days, she can barely walk only 50 feet without getting markedly short of breath. PAST MEDICAL HISTORY: Pertinent for coronary artery disease, cardiac arrhythmias, COPD, arthritis, anxiety, high cholesterol, hyperlipidemia, and hypertension. PAST SURGICAL HISTORY: Left wrist surgery, cholecystectomy, AICD, and tubal ligation. MEDICATIONS: Chronic medications from home include; 1. Tramadol. 2. BuSpar 15 twice a day. 3. Potassium. 4. Zaroxolyn 5. 5. Synthroid 75. 6. Lasix 80 twice a day. 7. Prozac 20. 8. Zetia 10. 9. Digoxin 0.125. 10. Coreg 3.125 twice a day. 11. Calcium. ALLERGIES: CODEINE, IODINE, ONION, AND PENICILLIN. SOCIAL HISTORY: Former smoker. No alcohol abuse. No drug abuse. REVIEW OF SYSTEMS: Otherwise, 10-point negative. PHYSICAL EXAMINATION: VITAL SIGNS: Saturations are 99% on 3 L, temperature 98, pulse 96, and blood pressure 99/57. CHEST: Decreased breath sounds. No wheezing. CARDIAC: Normal S1 and S2. No gallops. ABDOMEN: No masses. LABORATORY DATA: White count 11,000, hemoglobin and hematocrit of 12 and 36, and platelet count is normal. PO2 of 58, pCO2 of 72 [id number] respiratory failure. Lytes are normal. BUN and creatinine of 63 and 1.5. Sodium 134. IMPRESSION: Acute on chronic respiratory failure, superimposed pneumonia, azotemia, major anxiety, and diastolic dysfunction. PLAN: Agree with present treatment, neb treatments, steroids, and empiric antibiotics. I would cut back on her diuretic. She is azotemic, particularly the Xarelto. We will follow and notify Dr. Keyes. Consultation note, 70 minutes, 50% direct patient care. Job ID: [id number]
[2018-05-21] MEDS: Sodium Chloride 0.9% 1,000 ML IV SCH ×2 (05:25→19:36)
[2018-05-21] MEDS: Levothyroxine Sodium 75 MCG TAB PO SCH (05:29)
[2018-05-21 06:33] LABS: #Eosinphils 0.1 thou/uL (0.0-0.7); #Lymphocytes 1.9 thou/uL (1.20-3.40); #Monocytes 1.4 thou/uL (0.11-0.59); %Eosinophils 0.6 % (0.0-10.0); %Lymphocytes 15.2 % (21.0-51.0); %Monocytes 11.4 % (0.0-10.0); %Neutrophils 72.8 % (42.0-75.0); Hemoglobin 10.7 g/dL (12.0-16.0); Mean Corpuscular HGB CONC 31.1 g/dL (32.0-36.0); Mean Corpuscular Hemoglobin 28.1 pg (27.0-31.0); Mean Corpuscular Volume 90.4 fL (78.0-98.0); Platelet Count 429 thou/uL (130-400); RBC Distribution Width 14.1 % (11.5-14.5); White Blood Cell (WBC) Count 12.3 thou/uL (4.8-10.8)
[2018-05-21 06:44] LABS: BUN (Urea Nitrogen) 58 mg/dL (9.8-20.1); Calc. Creatinine Clearance 47 mL/min (70-130); Calcium 9.3 mg/dL (7.8-10.44); Estimated GFR-MDRD 48; Glucose 101 mg/dL (83-110); Magnesium 2.5 mg/dL (1.6-2.6)
[2018-05-21 06:53] LABS: Anion Gap 13 mmol/L (10-20); Carbon Dioxide 39 mmol/L (23-31); Chloride 91 mmol/L (98-107); Potassium 3.3 mmol/L (3.5-5.1); Sodium 140 mmol/L (136-145)
[2018-05-21] MEDS: Doxycycline 100 MG CAP PO SCH ×2 (08:18→20:52)
[2018-05-21] MEDS: Atorvastatin Calcium 40 MG TAB PO SCH (08:18)
[2018-05-21] MEDS: FLUoxetine HCl 20 MG CAP PO SCH (08:18)
[2018-05-21] MEDS: Famotidine 20 MG TAB PO SCH (08:18)
[2018-05-21] MEDS: Potassium Chloride 20 MEQ TAB PO SCH ×2 (08:19→16:35)
[2018-05-21] MEDS: busPIRone HCl 10 MG TAB PO SCH ×2 (08:19→20:52)
[2018-05-21] MEDS: Ezetimibe 10 MG TAB PO SCH (08:19)
[2018-05-21] MEDS: Digoxin 0.125 MG TAB PO SCH (08:20)
[2018-05-21] MEDS: Carvedilol 3.125 MG TAB PO SCH ×2 (08:20→16:34)
[2018-05-21] MEDS: Heparin 5,000 UNITS/ML VIAL SC SCH ×3 (08:20→20:54)
[2018-05-21] MEDS: methylPREDNISolone Sod Succ 40 MG VIAL IVP SCH (08:21)
[2018-05-21] MEDS: traMADol HCl 50 MG TAB PO SCH ×3 (08:21→20:53)
[2018-05-21] MEDS: Mometasone/Formoterol 120 PUFF INHALER INH SCH ×2 (09:07→18:27)
--- NOTE | 2018-05-21 09:53 | PRG ---
DATE OF SERVICE: 05/21/2018 SUBJECTIVE: This morning, she is better, still short of breath. Sputum is clear. OBJECTIVE: VITAL SIGNS: Temperature is 97, pulse 82, respiratory rate 24, blood pressure 120/70 sats are 98% on 3 L. CHEST: Decreased breath sounds. Prolonged expiration. CARDIAC: Sinus tach. ABDOMEN: Soft. LABORATORY DATA: Unremarkable. Creatinine is 1.1, BUN is 58. ASSESSMENT: 1. Chronic obstructive pulmonary disease exacerbation. 2. Bronchitis. PLAN: Switch over to oral prednisone. Continue neb treatments, supportive care. Home when stable. Job ID: [id number]
--- NOTE | 2018-05-21 21:22 | PDOC.PN ---
- Subjective Encounter Start Date: 05/21/18 Encounter Start Time: 10:50 Patient seen and examined for Resp failure. Feels somewhat better. Cough with mild production. No new complaints. No overnight events - Objective Resuscitation Status - Order Detail: 05/20/18 04:00 Resuscitation Status Routine Resuscitation Status: DNAR: NO Resuscitation Discussed with: Discussed with the patient MAR Reviewed: Yes Vital Signs & Weight: Vital Signs (12 hours) Temp Pulse Resp BP Pulse Ox 05/21/18 20:34 97.9 F 84 20 105/65 98 05/21/18 18:26 84 20 100 05/21/18 16:32 97.8 F 87 20 100/62 94 L 05/21/18 14:15 84 16 05/21/18 11:55 98.1 F 85 20 101/65 97 Weight Weight 143 lb I&O: 05/20/18 05/21/18 05/22/18 06:59 06:59 06:59 Intake Total 130 2220 720 Output Total 1500 1500 Balance 130 720 -780 Result Diagrams: 05/21/18 05:51 05/21/18 05:51 Phys Exam - Physical Examination Constitutional: NAD Respiratory: wheezing present Scat rhonchi Cardiovascular: RRR, no rub Gastrointestinal: soft, positive bowel sounds Musculoskeletal: no edema Dx/Plan - Plan DVT proph w/heparin, DVT proph w/SCDs 1. Acute on chronic hypoxic/hypercapnic resp failure 2. COPD exacerbation 3. Hypokalemia/hyponatremia 4. AMARJIT on CKD 3 5. Hypothyroidism PLAN: DC IVF Cont Steroids/Atbx AM labs PT [facility] setup Diuretics on hold due to AMARJIT Cont other meds as below Prob stop Metolazone at dc Digoxin level in AM Review of Systems - Review of Systems Constitutional: negative: fever, chills, sweats, weakness, malaise, other Cardiovascular: negative: chest pain, palpitations, orthopnea, paroxysmal nocturnal dyspnea, edema, light headedness, other Gastrointestinal: negative: Nausea, Vomiting, Abdominal Pain, Diarrhea, Constipation, Melena, Hematochezia, Other - Medications/Allergies Allergies/Adverse Reactions: Allergies Allergy/AdvReac Type Severity Reaction Status Date / Time codeine Allergy Hives Verified 05/19/18 23:29 levofloxacin [From Levaquin] Allergy Rash Verified 05/19/18 23:29 onion Allergy Verified 05/19/18 23:29 Penicillins Allergy Hives Verified 05/19/18 23:29 Sulfa (Sulfonamide Allergy Hives Verified 05/19/18 23:29 Antibiotics) Medications: Current Medications Acetaminophen (Tylenol) 650 mg PO Q4H PRN PRN Reason: Headache/Fever/Mild Pain (1-3) Last Admin: 05/21/18 05:29 Dose: 650 mg Albuterol/Ipratropium (Duoneb) 3 ml NEB Q4H PRN PRN Reason: SOB &/or Wheezing Albuterol/Ipratropium (Duoneb) 3 ml NEB [id number] [facility] Last Admin: 05/21/18 18:26 Dose: 3 ml Atorvastatin Calcium (Lipitor) 80 mg PO DAILY [facility] Last Admin: 05/21/18 08:18 Dose: 80 mg Benzonatate (Tessalon) 100 mg PO Q6H PRN PRN Reason: Cough Buspirone HCl (Buspar) 15 mg PO BID [facility] Last Admin: 05/21/18 20:52 Dose: 15 mg Carvedilol (Coreg) 3.125 mg PO BID-[facility] Last Admin: 05/21/18 16:34 Dose: 3.125 mg Digoxin (Lanoxin) 0.125 mg PO DAILY [facility] Last Admin: 05/21/18 08:20 Dose: 0.125 mg Doxycycline Hyclate (Vibramycin) 100 mg PO BID [facility] Last Admin: 05/21/18 20:52 Dose: 100 mg Ezetimibe (Zetia) 10 mg PO DAILY [facility] Last Admin: 05/21/18 08:19 Dose: 10 mg Famotidine (Pepcid) 20 mg PO DAILY [facility] Last Admin: 05/21/18 08:18 Dose: 20 mg Fluoxetine HCl (Prozac) 20 mg PO DAILY [facility] Last Admin: 05/21/18 08:18 Dose: 20 mg Heparin Sodium (Porcine) (Heparin) 5,000 units SC BID [facility] Hydralazine HCl (Apresoline) 10 mg SLOW IVP Q4H PRN PRN Reason: SBP > 180 and HR < 70 Levothyroxine Sodium (Synthroid) 75 mcg PO 0600 [facility] Last Admin: 05/21/18 05:29 Dose: 75 mcg Mometasone Furoate/Formoterol Fumar (Dulera 100 Mcg/5 Mcg Inhaler) 1 puff INH BID-RT [facility] Last Admin: 05/21/18 18:27 Dose: 1 puff Prednisone (Prednisone) 40 mg PO QAM-WM [facility] Tramadol HCl (Ultram) 50 mg PO TID [facility] Last Admin: 05/21/18 20:53 Dose: 50 mg
[2018-05-22] MEDS: Levothyroxine Sodium 75 MCG TAB PO SCH (05:27)
[2018-05-22 08:01] LABS: #Basophils 0.1 thou/uL (0.0-0.2); #Eosinphils 0.2 thou/uL (0.0-0.7); #Lymphocytes 2.5 thou/uL (1.20-3.40); #Monocytes 1.1 thou/uL (0.11-0.59); #Neutrophils 6.4 thou/uL (1.40-6.50); %Basophils 0.5 % (0.0-1.0); %Eosinophils 1.8 % (0.0-10.0); %Lymphocytes 24.6 % (21.0-51.0); %Neutrophils 62.1 % (42.0-75.0); Hemoglobin 10.8 g/dL (12.0-16.0); Mean Corpuscular HGB CONC 31.2 g/dL (32.0-36.0); Mean Corpuscular Hemoglobin 28.6 pg (27.0-31.0); Mean Corpuscular Volume 91.6 fL (78.0-98.0); Mean Platelet Volume 6.7 fL (7.4-10.4); Platelet Count 428 thou/uL (130-400); RBC Distribution Width 14.4 % (11.5-14.5); Red Blood Cell (RBC) Count 3.79 mill/uL (4.20-5.40); White Blood Cell (WBC) Count 10.3 thou/uL (4.8-10.8)
[2018-05-22] MEDS: Mometasone/Formoterol 120 PUFF INHALER INH SCH ×2 (08:04→19:24)
[2018-05-22 08:19] LABS: BUN (Urea Nitrogen) 37 mg/dL (9.8-20.1); Calc. Creatinine Clearance 61 mL/min (70-130); Calcium 9.2 mg/dL (7.8-10.44); Estimated GFR-MDRD 66; Glucose 74 mg/dL (83-110)
[2018-05-22 08:20] LABS: Digoxin 1.46 ng/mL (0.8-2.0)
[2018-05-22 08:28] LABS: Anion Gap 15 mmol/L (10-20); Carbon Dioxide 39 mmol/L (23-31); Chloride 90 mmol/L (98-107); Potassium 3.7 mmol/L (3.5-5.1); Sodium 140 mmol/L (136-145)
[2018-05-22] MEDS: Digoxin 0.125 MG TAB PO SCH (09:26)
[2018-05-22] MEDS: Doxycycline 100 MG CAP PO SCH ×2 (09:26→20:01)
[2018-05-22] MEDS: traMADol HCl 50 MG TAB PO SCH ×3 (09:27→20:02)
[2018-05-22] MEDS: Carvedilol 3.125 MG TAB PO SCH ×2 (09:27→16:02)
[2018-05-22] MEDS: busPIRone HCl 10 MG TAB PO SCH ×2 (09:27→20:01)
[2018-05-22] MEDS: Atorvastatin Calcium 40 MG TAB PO SCH (09:28)
[2018-05-22] MEDS: FLUoxetine HCl 20 MG CAP PO SCH (09:28)
[2018-05-22] MEDS: predniSONE 20 MG TAB PO SCH (09:28)
[2018-05-22] MEDS: Ezetimibe 10 MG TAB PO SCH (09:28)
[2018-05-22] MEDS: Heparin 5,000 UNITS/ML VIAL SC SCH ×2 (09:29→20:05)
[2018-05-22] MEDS: Famotidine 20 MG TAB PO SCH (09:29)
--- NOTE | 2018-05-22 10:38 | EKG ---
Test Reason : Blood Pressure : / mmHG Vent. Rate : 091 BPM Atrial Rate : 091 BPM P-R Int : 000 ms QRS Dur : 146 ms QT Int : 404 ms P-R-T Axes : 077 081 062 degrees QTc Int : 496 ms Ventricular-paced rhythm Abnormal ECG Confirmed by ARI LIMA ([id number]), slot editor YEIMY WHITTAKER ([id number]) on 05/22/2018 10:38:31 AM Referred By: Confirmed By:ARI LIMA
--- NOTE | 2018-05-22 14:13 | PDOC.PN ---
- Subjective Encounter Start Date: 05/22/18 Encounter Start Time: 10:00 Pt seen for followup re; acute on chronic hypoxic respiratory failure. Says she feels better. - Objective Resuscitation Status - Order Detail: 05/20/18 04:00 Resuscitation Status Routine Resuscitation Status: DNAR: NO Resuscitation Discussed with: Discussed with the patient MAR Reviewed: Yes Vital Signs & Weight: Vital Signs (12 hours) Temp Pulse Resp BP Pulse Ox 05/22/18 12:56 77 20 99 05/22/18 11:32 97.8 F 77 19 112/66 99 05/22/18 09:26 82 05/22/18 08:02 82 18 98 05/22/18 07:38 98.1 F 82 19 112/70 98 05/22/18 05:19 97.7 F 73 20 108/63 97 Weight Weight 143 lb I&O: 05/21/18 05/22/18 05/23/18 06:59 06:59 06:59 Intake Total 2220 1620 480 Output Total 1500 1500 Balance 720 120 480 Result Diagrams: 05/22/18 07:29 05/22/18 07:29 Additional Labs: labs reviewed by me Phys Exam - Physical Examination Constitutional: NAD HEENT: moist MMs Neck: supple Respiratory: wheezing present Cardiovascular: RRR Gastrointestinal: soft Neurological: moves all 4 limbs Psychiatric: normal affect Dx/Plan (1) Acute on chronic respiratory failure with hypoxemia Code(s): J96.21 - ACUTE AND CHRONIC RESPIRATORY FAILURE WITH HYPOXIA Status: Acute Comment: Improving (2) COPD exacerbation Code(s): J44.1 - CHRONIC OBSTRUCTIVE PULMONARY DISEASE W (ACUTE) EXACERBATION Status: Acute Comment: Improving with oxygen steroids and bronchodilators (3) Dyslipidemia Code(s): E78.5 - HYPERLIPIDEMIA, UNSPECIFIED Status: Chronic Comment: stable (4) GERD (gastroesophageal reflux disease) Code(s): K21.9 - GASTRO-ESOPHAGEAL REFLUX DISEASE WITHOUT ESOPHAGITIS Status: Chronic Qualifiers: Esophagitis presence: without esophagitis Qualified Code(s): K21.9 - Gastro -esophageal reflux disease without esophagitis Comment: stable (5) HTN (hypertension) Code(s): I10 - ESSENTIAL (PRIMARY) HYPERTENSION Status: Chronic Qualifiers: Hypertension type: essential hypertension Comment: controlled (6) Hypothyroidism Code(s): E03.9 - HYPOTHYROIDISM, UNSPECIFIED Status: Chronic Comment: continue synthroid - Plan continue antibiotics, PT/OT, out of bed/ambulate * . Review of Systems - Review of Systems Respiratory: Cough, SOB with Excertion, Sputum. negative: Dry, Shortness of Breath, Hemoptysis, Pleuritic Pain, Wheezing Cardiovascular: negative: chest pain, palpitations, orthopnea, paroxysmal nocturnal dyspnea, edema, light headedness - Medications/Allergies Allergies/Adverse Reactions: Allergies Allergy/AdvReac Type Severity Reaction Status Date / Time codeine Allergy Hives Verified 05/19/18 23:29 levofloxacin [From Levaquin] Allergy Rash Verified 05/19/18 23:29 onion Allergy Verified 05/19/18 23:29 Penicillins Allergy Hives Verified 05/19/18 23:29 Sulfa (Sulfonamide Allergy Hives Verified 05/19/18 23:29 Antibiotics) Medications: Current Medications Acetaminophen (Tylenol) 650 mg PO Q4H PRN PRN Reason: Headache/Fever/Mild Pain (1-3) Last Admin: 05/21/18 05:29 Dose: 650 mg Albuterol/Ipratropium (Duoneb) 3 ml NEB Q4H PRN PRN Reason: SOB &/or Wheezing Albuterol/Ipratropium (Duoneb) 3 ml NEB [id number] [facility] Last Admin: 05/22/18 12:56 Dose: 3 ml Atorvastatin Calcium (Lipitor) 80 mg PO DAILY [facility] Last Admin: 05/22/18 09:28 Dose: 80 mg Benzonatate (Tessalon) 100 mg PO Q6H PRN PRN Reason: Cough Buspirone HCl (Buspar) 15 mg PO BID [facility] Last Admin: 05/22/18 09:27 Dose: 15 mg Carvedilol (Coreg) 3.125 mg PO BID[facility] Last Admin: 05/22/18 09:27 Dose: 3.125 mg Digoxin (Lanoxin) 0.125 mg PO DAILY [facility] Last Admin: 05/22/18 09:26 Dose: 0.125 mg Doxycycline Hyclate (Vibramycin) 100 mg PO BID [facility] Last Admin: 05/22/18 09:26 Dose: 100 mg Ezetimibe (Zetia) 10 mg PO DAILY [facility] Last Admin: 05/22/18 09:28 Dose: 10 mg Famotidine (Pepcid) 20 mg PO DAILY [facility] Last Admin: 05/22/18 09:29 Dose: 20 mg Fluoxetine HCl (Prozac) 20 mg PO DAILY [facility] Last Admin: 05/22/18 09:28 Dose: 20 mg Heparin Sodium (Porcine) (Heparin) 5,000 units SC BID [facility] Last Admin: 05/22/18 09:29 Dose: 5,000 units Hydralazine HCl (Apresoline) 10 mg SLOW IVP Q4H PRN PRN Reason: SBP > 180 and HR < 70 Levothyroxine Sodium (Synthroid) 75 mcg PO 0600 [facility] Last Admin: 05/22/18 05:27 Dose: 75 mcg Mometasone Furoate/Formoterol Fumar (Dulera 100 Mcg/5 Mcg Inhaler) 1 puff INH BID-RT [facility] Last Admin: 05/22/18 08:04 Dose: 1 puff Prednisone (Prednisone) 40 mg PO QAM-WM [facility] Last Admin: 05/22/18 09:28 Dose: 40 mg Tramadol HCl (Ultram) 50 mg PO TID [facility] Last Admin: 05/22/18 09:27 Dose: 50 mg
--- NOTE | 2018-05-22 21:13 | PRG ---
DATE OF SERVICE: 05/22/2018 SUBJECTIVE: Kelsy Gr had no complaints today. OBJECTIVE: VITAL SIGNS: She is afebrile, heart rate is 93, respiratory rate is 22, oximetry is 94%, and blood pressure is 117/68. LUNGS: Still remarkable for bilateral wheezes. HEART: Regular rhythm. ABDOMEN: Soft. EXTREMITIES: Without edema. LABORATORY DATA: White count 10.3, hemoglobin 10.8, and platelets 428,000. Sodium 140, potassium 3.7, chloride 90, bicarbonate 39, BUN 37, and creatinine 0.85. IMPRESSION: Chronic obstructive pulmonary disease exacerbation with bronchitis. PLAN: Continue nebulized treatments, steroids, gradually increasing her activity. She does not feel that she is ready to go home. Job ID: [id number]
[2018-05-23] MEDS: Levothyroxine Sodium 75 MCG TAB PO SCH (05:22)
[2018-05-23] MEDS: Mometasone/Formoterol 120 PUFF INHALER INH SCH ×2 (06:42→18:36)
[2018-05-23] MEDS: busPIRone HCl 10 MG TAB PO SCH ×2 (08:47→20:28)
[2018-05-23] MEDS: Famotidine 20 MG TAB PO SCH (08:47)
[2018-05-23] MEDS: predniSONE 20 MG TAB PO SCH (08:47)
[2018-05-23] MEDS: Digoxin 0.125 MG TAB PO SCH (08:47)
[2018-05-23] MEDS: Carvedilol 3.125 MG TAB PO SCH ×2 (08:48→17:26)
[2018-05-23] MEDS: Atorvastatin Calcium 40 MG TAB PO SCH (08:48)
[2018-05-23] MEDS: FLUoxetine HCl 20 MG CAP PO SCH (08:48)
[2018-05-23] MEDS: traMADol HCl 50 MG TAB PO SCH ×3 (08:48→20:27)
[2018-05-23] MEDS: Ezetimibe 10 MG TAB PO SCH (08:48)
[2018-05-23] MEDS: Doxycycline 100 MG CAP PO SCH ×2 (08:49→20:28)
[2018-05-23] MEDS: Heparin 5,000 UNITS/ML VIAL SC SCH ×2 (08:49→20:28)
--- NOTE | 2018-05-23 14:09 | PDOC.PN ---
- Subjective Encounter Start Date: 05/23/18 Encounter Start Time: 09:40 Pt seen for followup for acute on chronic hypoxic respiratory failure. feels only slightly better. - Objective Resuscitation Status - Order Detail: 05/20/18 04:00 Resuscitation Status Routine Resuscitation Status: DNAR: NO Resuscitation Discussed with: Discussed with the patient MAR Reviewed: Yes Vital Signs & Weight: Vital Signs (12 hours) Temp Pulse Resp BP Pulse Ox 05/23/18 14:01 90 18 05/23/18 12:24 98 F 88 18 118/66 97 05/23/18 08:47 76 05/23/18 08:00 98 05/23/18 07:44 98.0 F 76 18 126/79 98 05/23/18 06:39 86 20 98 05/23/18 05:08 97.9 F 77 21 H 153/78 H 98 Weight Weight 143 lb I&O: 05/22/18 05/23/18 05/24/18 06:59 06:59 06:59 Intake Total 1620 1320 240 Output Total 1500 Balance 120 1320 240 Result Diagrams: 05/22/18 07:29 05/22/18 07:29 Additional Labs: labs reviewed by me Phys Exam - Physical Examination Constitutional: NAD HEENT: moist MMs Neck: supple Respiratory: clear to auscultation bilateral Cardiovascular: RRR Gastrointestinal: soft Neurological: moves all 4 limbs Psychiatric: normal affect Dx/Plan (1) Acute on chronic respiratory failure with hypoxemia Code(s): J96.21 - ACUTE AND CHRONIC RESPIRATORY FAILURE WITH HYPOXIA Status: Acute Comment: Improving slowly (2) COPD exacerbation Code(s): J44.1 - CHRONIC OBSTRUCTIVE PULMONARY DISEASE W (ACUTE) EXACERBATION Status: Acute Comment: Improving, continue oxygen, steroids and bronchodilators (3) Dyslipidemia Code(s): E78.5 - HYPERLIPIDEMIA, UNSPECIFIED Status: Chronic Comment: stable (4) GERD (gastroesophageal reflux disease) Code(s): K21.9 - GASTRO-ESOPHAGEAL REFLUX DISEASE WITHOUT ESOPHAGITIS Status: Chronic Qualifiers: Esophagitis presence: without esophagitis Qualified Code(s): K21.9 - Gastro -esophageal reflux disease without esophagitis Comment: stable (5) HTN (hypertension) Code(s): I10 - ESSENTIAL (PRIMARY) HYPERTENSION Status: Chronic Qualifiers: Hypertension type: essential hypertension Comment: controlled (6) Hypothyroidism Code(s): E03.9 - HYPOTHYROIDISM, UNSPECIFIED Status: Chronic Comment: on synthroid - Plan * . Review of Systems - Review of Systems Respiratory: Cough, SOB with Excertion, Sputum. negative: Dry, Shortness of Breath, Hemoptysis, Pleuritic Pain, Wheezing Cardiovascular: negative: chest pain, palpitations, orthopnea, paroxysmal nocturnal dyspnea, edema, light headedness - Medications/Allergies Allergies/Adverse Reactions: Allergies Allergy/AdvReac Type Severity Reaction Status Date / Time codeine Allergy Hives Verified 05/19/18 23:29 levofloxacin [From Levaquin] Allergy Rash Verified 05/19/18 23:29 onion Allergy Verified 05/19/18 23:29 Penicillins Allergy Hives Verified 05/19/18 23:29 Sulfa (Sulfonamide Allergy Hives Verified 05/19/18 23:29 Antibiotics) Medications: Current Medications Acetaminophen (Tylenol) 650 mg PO Q4H PRN PRN Reason: Headache/Fever/Mild Pain (1-3) Last Admin: 05/21/18 05:29 Dose: 650 mg Albuterol/Ipratropium (Duoneb) 3 ml NEB Q4H PRN PRN Reason: SOB &/or Wheezing Albuterol/Ipratropium (Duoneb) 3 ml NEB [id number] [facility] Last Admin: 05/23/18 14:01 Dose: 3 ml Atorvastatin Calcium (Lipitor) 80 mg PO DAILY [facility] Last Admin: 05/23/18 08:48 Dose: 80 mg Benzonatate (Tessalon) 100 mg PO Q6H PRN PRN Reason: Cough Buspirone HCl (Buspar) 15 mg PO BID [facility] Last Admin: 05/23/18 08:47 Dose: 15 mg Carvedilol (Coreg) 3.125 mg PO BID-[facility] Last Admin: 05/23/18 08:48 Dose: 3.125 mg Digoxin (Lanoxin) 0.125 mg PO DAILY [facility] Last Admin: 05/23/18 08:47 Dose: 0.125 mg Doxycycline Hyclate (Vibramycin) 100 mg PO BID [facility] Last Admin: 05/23/18 08:49 Dose: 100 mg Ezetimibe (Zetia) 10 mg PO DAILY [facility] Last Admin: 05/23/18 08:48 Dose: 10 mg Famotidine (Pepcid) 20 mg PO DAILY [facility] Last Admin: 05/23/18 08:47 Dose: 20 mg Fluoxetine HCl (Prozac) 20 mg PO DAILY [facility] Last Admin: 05/23/18 08:48 Dose: 20 mg Heparin Sodium (Porcine) (Heparin) 5,000 units SC BID [facility] Last Admin: 05/23/18 08:49 Dose: 5,000 units Hydralazine HCl (Apresoline) 10 mg SLOW IVP Q4H PRN PRN Reason: SBP > 180 and HR < 70 Levothyroxine Sodium (Synthroid) 75 mcg PO 0600 [facility] Last Admin: 05/23/18 05:22 Dose: 75 mcg Mometasone Furoate/Formoterol Fumar (Dulera 100 Mcg/5 Mcg Inhaler) 1 puff INH BID-RT [facility] Last Admin: 05/23/18 06:42 Dose: 1 puff Prednisone (Prednisone) 40 mg PO QAM-WM [facility] Last Admin: 05/23/18 08:47 Dose: 40 mg Tramadol HCl (Ultram) 50 mg PO TID [facility] Last Admin: 05/23/18 08:48 Dose: 50 mg
--- NOTE | 2018-05-23 15:11 | PRG ---
DATE OF SERVICE: 05/23/2018 SUBJECTIVE: Kelsy Gr says she is feeling a little bit better, but improving very slowly. She is in no distress. She does not feel she is ready to go home. OBJECTIVE: VITAL SIGNS: She is afebrile. Heart rate is 90, respiratory rate 18, oximetry is 97% on 4 L, and blood pressure 118/66. LUNGS: Remarkable for distant wheezes. HEART: Regular rhythm. ABDOMEN: Soft. IMPRESSION: Chronic obstructive pulmonary disease exacerbation, slowly improving. PLAN: Continue current care. Job ID: [id number]
--- NOTE | 2018-05-23 15:43 | PRG ---
DATE OF SERVICE: 05/23/2018 SUBJECTIVE: Ms. Gr is feeling better but still not back to her baseline. She has no new complaints today and says she is feeling a little better each day. OBJECTIVE: VITAL SIGNS: She is afebrile. Heart rate is 88, respiratory rate is 18, oximetry is 97% on 4 L, blood pressure is 118/66. LUNGS: Clear. HEART: Regular rhythm. ABDOMEN: Soft. PLAN: I have recommended that O2 sats be kept between 88 and 92 since she is on hypo-ventilator. I will reenter that order. She continues to be stable. Job ID: [id number] MTDD
[2018-05-24] MEDS: Levothyroxine Sodium 75 MCG TAB PO SCH (05:22)
[2018-05-24] MEDS: Mometasone/Formoterol 120 PUFF INHALER INH SCH (06:15)
[2018-05-24] MEDS: busPIRone HCl 10 MG TAB PO SCH (08:56)
[2018-05-24] MEDS: traMADol HCl 50 MG TAB PO SCH ×2 (08:57→17:02)
[2018-05-24] MEDS: Atorvastatin Calcium 40 MG TAB PO SCH (08:57)
[2018-05-24] MEDS: Doxycycline 100 MG CAP PO SCH (08:57)
[2018-05-24] MEDS: Famotidine 20 MG TAB PO SCH (08:58)
[2018-05-24] MEDS: Ezetimibe 10 MG TAB PO SCH (08:58)
[2018-05-24] MEDS: Digoxin 0.125 MG TAB PO SCH (08:58)
[2018-05-24] MEDS: Carvedilol 3.125 MG TAB PO SCH (08:58)
[2018-05-24] MEDS: FLUoxetine HCl 20 MG CAP PO SCH (08:58)
[2018-05-24] MEDS: predniSONE 20 MG TAB PO SCH (08:58)
[2018-05-24] MEDS: Heparin 5,000 UNITS/ML VIAL SC SCH (09:00)
--- NOTE | 2018-05-24 09:48 | PRG ---
DATE OF SERVICE: 05/24/2018 SUBJECTIVE: Ms. Gr is doing well, has no acute complaints. OBJECTIVE: VITAL SIGNS: Temperature 97.7, pulse 81, respirations 20, O2 saturation 94%, and blood pressure 122/73. HEENT: Unremarkable. NECK: No JVD. LUNGS: Few inspiratory crackles especially in the left base. CARDIAC: S1 and S2. Regular. ABDOMEN: Soft. EXTREMITIES: No edema. ASSESSMENT: 1. Pneumonia with clinical improvement. 2. Chronic obstructive pulmonary disease with exacerbation. PLAN: The patient is finishing up oral antibiotics. She is on nebulization treatments and oral steroids. I think she is probably back to her baseline and can be considered for discharge. Job ID: [id number]
--- NOTE | 2018-05-24 13:17 | DIS ---
DATE OF ADMISSION: 05/19/2018 DATE OF DISCHARGE: 05/24/2018 PRIMARY CARE PROVIDER: Carlos Mayorga MD DISCHARGE DIAGNOSES: 1. Acute on chronic hypoxic respiratory failure. 2. Chronic obstructive pulmonary disease. 3. Pneumonia. 4. Hypokalemia. 5. Hyponatremia. 6. Acute kidney injury. CONDITION OF PATIENT ON THE DAY OF DISCHARGE: Stable. I assessed Ms. Gr on the day of discharge. She denies any chest pain or shortness of breath. Vital signs are stable. S1 and S2 are heard, regular. Lungs are clear to auscultation bilaterally. CONSULTATIONS DURING THIS HOSPITALIZATION: Pulmonary and Critical Care Medicine, Hugo Jin MD DISCHARGE MEDICATIONS: In addition to her home medications as dictated by Dr. Miller on history and physical note dated May 20, 2018, Ms. Gr is being discharged on: 1. Tessalon 100 mg every 6 hours as needed. 2. Doxycycline 100 mg 2 times a day for 5 more days. 3. Dulera 100/5 mcg one puff 2 times a day. 4. Oral prednisone taper. HOSPITAL COURSE: Ms. Gr is a pleasant 73-year-old lady, who was admitted to [facility] on May 19, 2018 for acute on chronic hypoxic respiratory failure secondary to chronic obstructive pulmonary disease exacerbation and pneumonia. She was seen by Pulmonology Service. She was treated with oxygen, steroids, bronchodilators, and antibiotics. She improved clinically. She has been cleared for discharge home by Pulmonology Service. She also had hypokalemia, hyponatremia, and acute kidney injury at the time of admission. These issues resolved by May 22, 2018. On May 22, Ms. Gr had sodium 140, potassium 3.7, creatinine 0.85, white count 10,300, hemoglobin 10.8, and platelet count 428,000. Many thanks for allowing me to participate in your patient's care. Please feel free to contact me with any questions or concerns. DISCHARGE DESTINATION: Home. TIME SPENT: Total amount of time spent coordinating this discharge: 33 minutes. Job ID: [id number]
[2018-05-24 14:54] VITALS: BP 119/69; TEMP 99.3
== END 2018-05-24 15:13 | disposition home or self-care (01) | DRG 193 ==
LOC: ERS 19:11 → OBSVTOIN 23:06 → T4-B 23:06
PROVIDERS: ADMIT Internal Medicine; ATTEND Internal Medicine
DX: J18.9 Pneumonia, unspecified organism (principal); J96.21 Acute and chronic respiratory failure with hypoxia; J96.22 Acute and chronic respiratory failure with hypercapnia; J44.1 Chronic obstructive pulmonary disease with (acute) exacerbation; E87.1 Hypo-osmolality and hyponatremia; N17.9 Acute kidney failure, unspecified; I50.32 Chronic diastolic (congestive) heart failure; I13.0 Hypertensive heart and chronic kidney disease with heart failure and stage 1 through stage 4 chronic kidney disease, or unspecified chronic kidney disease; J44.0 Chronic obstructive pulmonary disease with (acute) lower respiratory infection; Z79.899 Other long term (current) drug therapy; Z66 Do not resuscitate; Z87.81 Personal history of (healed) traumatic fracture; Z90.49 Acquired absence of other specified parts of digestive tract; Z88.5 Allergy status to narcotic agent; Z88.0 Allergy status to penicillin; Z88.2 Allergy status to sulfonamides; I25.10 Atherosclerotic heart disease of native coronary artery without angina pectoris; E78.00 Pure hypercholesterolemia, unspecified; Z87.891 Personal history of nicotine dependence; Z79.891 Long term (current) use of opiate analgesic; E87.6 Hypokalemia; M19.90 Unspecified osteoarthritis, unspecified site; E03.9 Hypothyroidism, unspecified; N18.3 Chronic kidney disease, stage 3 (moderate); Z88.1 Allergy status to other antibiotic agents; K21.9 Gastro-esophageal reflux disease without esophagitis; Z91.02 Food additives allergy status; Z98.51 Tubal ligation status; Z99.81 Dependence on supplemental oxygen; Z87.01 Personal history of pneumonia (recurrent); Z95.810 Presence of automatic (implantable) cardiac defibrillator; F41.9 Anxiety disorder, unspecified
CPT/HCPCS: 36415; 71045; 80048; 80053; 80162; 81003; 82805; 83735; 83880; 85025; 93005; 94640; 94760; 96365; 96367; J1644; J2920; J3475; J3480; J7620

== ENCOUNTER 2018-05-25 05:39 | Inpatient (IN) | payer MEDICARE ==
[2018-05-25 05:53] LABS: Actual Bicarbonate (HCO3a) 38.5 mEq/L (22-28); Analyzer IN Cardio ER; Base Excess (BEa) 10.5 mEq/L (-2.0 to +3.0); Calcium, Ionized 1.15 mmol/L (1.12-1.30); Carboxyhemoglobin (COHb) 0.3 gm% (0.0-3.0); Hemoglobin (Hb) 12.9 g/dL (12.0-16.0); O2 Tension (PaO2) 157.7 mmHg (> 70.0); pH, Arterial 7.37 (7.35-7.45)
[2018-05-25 05:54] LABS: CO2 Tension 68.9 mmHg (35.0-45.0)
[2018-05-25 05:55] LABS: ALV-art Gradient -29.925 (0-20)
[2018-05-25 06:27] LABS: Mean Corpuscular HGB CONC 30.8 g/dL (32.0-36.0); Mean Corpuscular Hemoglobin 28.7 pg (27.0-31.0); Mean Platelet Volume 6.3 fL (7.4-10.4); Platelet Count 426 thou/uL (130-400); RBC Distribution Width 14.7 % (11.5-14.5); Red Blood Cell (RBC) Count 4.18 mill/uL (4.20-5.40); White Blood Cell (WBC) Count 19.9 thou/uL (4.8-10.8)
[2018-05-25 06:29] LABS: ALT (SGPT) 43 U/L (8-55); AST (SGOT) 33 U/L (5-34); Albumin 3.3 g/dL (3.4-4.8); Alkaline Phosphatase 86 U/L (40-150); Anion Gap 11 mmol/L (10-20); BUN (Urea Nitrogen) 24 mg/dL (9.8-20.1); Bilirubin, Total 0.2 mg/dL (0.2-1.2); CK (CPK) 42 U/L (29-168); Calc. Creatinine Clearance 0 mL/min (70-130); Calcium 8.8 mg/dL (7.8-10.44); Carbon Dioxide 35 mmol/L (23-31); Chloride 99 mmol/L (98-107); Estimated GFR-MDRD 66; Globulin 2.6 g/dL (2.4-3.5); Glucose 133 mg/dL (83-110); Potassium 4.2 mmol/L (3.5-5.1); Protein, Total 5.9 g/dL (6.0-8.3); Sodium 141 mmol/L (136-145)
[2018-05-25 06:52] LABS: CKMB 3.3 ng/mL (0-6.6)
[2018-05-25 06:54] LABS: Band 7 % (5-11); Lymphocytes 17 % (21-51); MDiff Complete? YES; Myelocyte 4 % (0-0); Neutrophil 72 % (42-75)
--- NOTE | 2018-05-25 08:17 | RAD ---
CHEST ONE VIEW: HISTORY: Respiratory distress. Dyspnea. COMPARISON: 05/19/2018 FINDINGS: Left-sided transvenous defibrillator is unchanged. There is atherosclerosis of the aorta. Normal ca rdiac silhouette. Pulmonary vessels and hilum are normal. Costophrenic angles are clear. Patchy op acities in the lung bases. Hyperinflation without consolidation or mass. No pneumothorax or osseous abnormalities. IMPRESSION: No significant interval change. POS: OSBALDO
[2018-05-25] MEDS ORDERED: Acetaminophen 325 MG TAB PO PRN (08:21)
[2018-05-25] MEDS ORDERED: Loratadine 10 MG TAB PO PRN (08:29)
[2018-05-25] MEDS ORDERED: guaiFENesin 200 MG TAB PO PRN (08:29)
[2018-05-25] MEDS ORDERED: Aspirin Chewable 81 MG TAB ONE (09:02)
[2018-05-25] MEDS ORDERED: Digoxin 0.125 MG TAB ONE (09:02)
[2018-05-25] MEDS ORDERED: Enoxaparin Sodium 40 MG/0.4 ML SYRINGE ONE (09:02)
[2018-05-25] MEDS: Digoxin 0.125 MG TAB PO SCH (09:09)
[2018-05-25] MEDS: Enoxaparin Sodium 40 MG/0.4 ML SYRINGE SC SCH (09:09)
[2018-05-25] MEDS: Aspirin 81 mg Enteric Coated Tablet PO SCH (09:09)
[2018-05-25] MEDS: Furosemide 80 MG TAB PO SCH ×2 (09:48→14:58)
[2018-05-25] MEDS: Doxycycline 100 MG CAP PO SCH ×2 (09:48→20:07)
[2018-05-25] MEDS: busPIRone HCl 5 MG TAB PO SCH ×2 (09:48→20:07)
[2018-05-25] MEDS: Ezetimibe 10 MG TAB PO SCH (09:48)
[2018-05-25 10:13] LABS: Troponin I 0.063 ng/mL (< 0.028)
--- NOTE | 2018-05-25 11:13 | HP ---
CHIEF COMPLAINT: Short of breath. HISTORY OF PRESENT ILLNESS: This patient is a 73-year-old female, who was discharged from the hospital less than 24 hours ago. The patient had initially presented on May 19 with shortness of breath. Given her history of COPD, she appeared to have COPD exacerbation with the chest x-ray confirming some evidence of right mid lung and right lung base infiltrate. It felt to be consistent with some element of pneumonia. The patient was treated in the hospital with IV antibiotics, steroids, nebulizer treatments. She was seen in consultation by Pulmonology and ultimately had some evidence of improvement with stability and was felt to be stable for discharge to home. The patient reports that when she got home, she again started having exacerbation of her shortness of breath and presented back to the Emergency Department. She reports no cough or fever during the interim. REVIEW OF SYSTEMS: All systems otherwise reviewed and all pertinent positives and negatives noted in the HPI. PAST MEDICAL HISTORY: Notable for the end-stage COPD with chronic respiratory failure, hyperlipidemia, and hypertension. She has a pacemaker and defibrillator. However, her previous echocardiogram revealed an ejection fraction of 60% to 65% with evidence of diastolic dysfunction. PAST SURGICAL HISTORY: Cholecystectomy, defibrillator placement, bilateral tubal ligation, and pacemaker. FAMILY HISTORY: Mother had diabetes and cancers. SOCIAL HISTORY: The patient is a . She smoked 2 packs a day for 25 years, quit 5 years ago. She is a DNR. Her sister Beatriz Mcnulty would be her surrogate decision maker. ALLERGIES: CODEINE, PENICILLIN, AND SULFA. CURRENT MEDICATIONS: 1. BuSpar 15 mg p.o. b.i.d. 2. Potassium 10 mEq b.i.d. 3. Lasix 80 mg b.i.d. 4. Aspirin 81 mg daily. 5. Levothyroxine 75 mcg daily. 6. Digoxin 0.125 mg p.o. daily. 7. Fluoxetine 20 mg daily. 8. Atorvastatin 80 mg at bedtime. 9. Metolazone 5 mg p.r.n. 10. Tramadol 50 mg t.i.d. p.r.n. 11. Zetia 10 mg daily. 12. Coreg 3.125 mg 1 p.o. b.i.d. 13. Loratadine 10 mg daily p.r.n. 14. Guaifenesin 1200 mg p.r.n. PHYSICAL EXAMINATION: VITAL SIGNS: BP 121/70, pulse 103, respirations 27, temperature 98.7 rectal, and O2 saturation 99% currently on BiPAP. GENERAL APPEARANCE: Age-appropriate female, lying supine in a hospital bed with a CPAP. She is awake, alert, and conversant, in no distress presently. HEART: Regular rate and rhythm without murmurs. LUNGS: Diffusely diminished, but no wheezes or rales. ABDOMEN: Soft and nondistended. There is slight tenderness in the area below the umbilicus, but minimal. No masses. EXTREMITIES: Warm and dry without edema. NEUROLOGICAL: The patient appears to be fully intact with no gross focal deficits. LABORATORY DATA: White count 19.9, hemoglobin 12, and platelets 426. ABG, pH is 7.37, pCO2 is 69, and pO2 is 158. Sodium 141, potassium 4.2, chloride 99, CO2 is 35, BUN 24, creatinine 0.85, glucose 133, and calcium 8.8. LFTs normal. Troponin 0.034 and BNP 207. Chest x-ray reveal patchy opacities in the lung bases and essentially unchanged. IMPRESSION AND PLAN: 1. Chronic obstructive pulmonary disease exacerbation with acute on chronic respiratory failure with hypercapnia. The patient will be readmitted to the hospital. She will have consultation with Pulmonology. We will start nebulizer and steroids and continue with the p.o. antibiotics and add Dulera for inhalation. 2. Pneumonia appears to be quite stable. Continue with the p.o. doxycycline for now. 3. Evidence of significant heart failure, although previous echo showed a normal ejection fraction with diastolic dysfunction. We will continue with the Coreg and diuretics. 4. Hyperlipidemia. Continue with the atorvastatin and Zetia. Job ID: [id number]
[2018-05-25 14:00] LABS: Troponin I 0.052 ng/mL (< 0.028)
[2018-05-25] MEDS: methylPREDNISolone Sod Succ 40 MG VIAL IVP SCH ×2 (14:57→17:54)
[2018-05-25] MEDS: Potassium Chloride 10 MEQ TAB PO SCH (17:47)
[2018-05-25] MEDS: Carvedilol 3.125 MG TAB PO SCH (17:47)
[2018-05-25] MEDS: Mometasone/Formoterol 120 PUFF INHALER INH SCH (18:45)
[2018-05-25 19:37] VITALS: BMI 28.8
[2018-05-25] MEDS: Atorvastatin Calcium 40 MG TAB PO SCH (20:08)
--- NOTE | 2018-05-25 21:43 | CON ---
DATE OF CONSULTATION: 05/25/2018 SERVICE: Pulmonary Medicine. REASON FOR CONSULTATION: ICU patient. HISTORY OF PRESENT ILLNESS: The patient is a 73-year-old white female with past medical history significant for very advanced COPD. She is oxygen-dependent. She was recently in the hospital for pneumonia, which was clinically improving. She also was treated for COPD exacerbation. Ultimately, she was discharged from the hospital a day before admission. On the day of discharge, she did not feel that her shortness of breath was good enough to go home safely. When she arrived home, there was no acute change in her condition, but she got up to use the restroom, and had severe shortness of breath that caused her to be extremely winded. She got fatigued and her family member called 911 and she was transitioned right back to the hospital. In the emergency department, she was placed on BiPAP because of increased work of breathing. She has been a couple of hours on this before she settled back down. She ended up being placed in the ICU because there were no intermediate care unit beds available. On arrival there, the BiPAP was immediately discontinued. She has absolutely no evidence of dyspnea, increased work of breathing. She is getting Lasix twice daily and has responded very nicely to this medication. Otherwise, there was no acute change to her condition. She has no specific complaints. PAST MEDICAL HISTORY: 1. Chronic hypoxic and hypercapnic respiratory failure. 2. COPD, severe. 3. Dyslipidemia. 4. Hypertension. 5. Chronic diastolic heart failure. PAST SURGICAL HISTORY: 1. Cholecystectomy. 2. Defibrillator placement. 3. Tubal ligation. FAMILY HISTORY: Noncontributory. SOCIAL HISTORY: She has a greater than 50-pack year history of smoking, quit roughly 5 years ago. She has no exposure to chemicals, dust, asbestos, or tuberculosis otherwise. She denies any illicit drugs. ALLERGIES: CODEINE, PENICILLIN, AND SULFA. MEDICATIONS: A list of her inpatient medications was reviewed. No specific updates were made at this time. REVIEW OF SYSTEMS: General, head, ears, eyes, nose, throat, cardiovascular, respiratory, GI, , musculoskeletal, neurologic, and skin are negative except as mentioned in the HPI. PHYSICAL EXAMINATION: VITAL SIGNS: Afebrile, pulse 81, blood pressure 111/54, respirations 26, saturation 100% on 3 L nasal cannula. GENERAL: The patient is awake and alert, in no apparent distress. LUNGS: Surprisingly good air entry. There is a prolonged expiratory phase, but I do not appreciate much in the way of wheezing. Crackles predominate. No rhonchi are appreciated. HEART: Normal rate, regular. ABDOMEN: Soft, nontender, and nondistended. Bowel sounds are positive. MUSCULOSKELETAL: No cyanosis or clubbing. There is trace pitting in the bilateral lower extremities. NEUROLOGIC: Grossly nonfocal. LABORATORY DATA: WBC 19.9, hemoglobin 12.0, platelets 426,000. PH 7.37, pCO2 of 69, pO2 of 157. This was when the patient was on BiPAP at 12/5. Basic metabolic profile and liver function studies are otherwise unremarkable. BNP is slightly elevated at 207, which is slightly improved compared to her previous hospital stay. Urinalysis is unremarkable. Digoxin level is 1.46. IMAGING STUDIES: Chest x-ray demonstrates hyperexpanded lungs bilaterally. No significant interval changes otherwise appreciated. No consolidating lesions or masses were otherwise appreciated. ASSESSMENT: 1. Acute on chronic hypoxic and hypercapnic respiratory failure. 2. Chronic obstructive pulmonary disease with minimal exacerbation. 3. Acute on chronic diastolic heart failure. 4. Deconditioning, quite advanced. DISCUSSION AND PLAN: We will continue to diurese the patient down to euvolemia. I do not think we have had a significant deterioration in function. We will trend her white blood cell count through time. I will deescalate her steroids and put her back on p.o. prednisone once daily. Frequent nebulized medications will be continued. Antibiotics will be continued. Agree with current choice. If the patient is off BiPAP in the morning, the patient can be considered for transition back to the medical unit. Case Management consultation for consideration of a nursing facility should be strongly considered. Dr. Keyes will assume care in the morning given his established relationship with Ms. Gr. 70 minutes have been devoted to this patient in various activities. I personally reviewed all imaging studies and laboratory data noted within this document. For fifty percent of this time, I was interacting with the patient at the bedside or coordinating care with the care team. For the remainder of the time I was immediately available to the patient in the hospital unit. Job ID: [id number] [facility]
[2018-05-26] MEDS: Levothyroxine Sodium 75 MCG TAB PO SCH (05:49)
[2018-05-26 06:39] LABS: Hemoglobin 12.4 g/dL (12.0-16.0); Mean Corpuscular HGB CONC 31.1 g/dL (32.0-36.0); Mean Corpuscular Hemoglobin 28.7 pg (27.0-31.0); Mean Corpuscular Volume 92.2 fL (78.0-98.0); Mean Platelet Volume 6.4 fL (7.4-10.4); Platelet Count 445 thou/uL (130-400); RBC Distribution Width 14.8 % (11.5-14.5); Red Blood Cell (RBC) Count 4.33 mill/uL (4.20-5.40); White Blood Cell (WBC) Count 17.9 thou/uL (4.8-10.8)
[2018-05-26 06:58] LABS: Band 2 % (5-11); Lymphocytes 15 % (21-51); MDiff Complete? YES; Monocytes 8 % (0-10); Myelocyte 1 % (0-0); Neutrophil 74 % (42-75)
[2018-05-26] MEDS: Mometasone/Formoterol 120 PUFF INHALER INH SCH ×2 (07:01→19:39)
[2018-05-26 07:15] LABS: BUN (Urea Nitrogen) 29 mg/dL (9.8-20.1); Calc. Creatinine Clearance 60 mL/min (70-130); Calcium 10.1 mg/dL (7.8-10.44); Estimated GFR-MDRD 63; Glucose 110 mg/dL (83-110); Magnesium 2.2 mg/dL (1.6-2.6); Phosphorus 5.3 mg/dL (2.3-4.7)
[2018-05-26 07:24] LABS: Chloride 86 mmol/L (98-107); Potassium 4.1 mmol/L (3.5-5.1); Sodium 141 mmol/L (136-145)
[2018-05-26 07:27] LABS: Anion Gap 17 mmol/L (10-20)
[2018-05-26 07:30] LABS: Carbon Dioxide 42 mmol/L (23-31)
[2018-05-26] MEDS: Doxycycline 100 MG CAP PO SCH ×2 (08:41→20:35)
[2018-05-26] MEDS: Carvedilol 3.125 MG TAB PO SCH ×2 (08:41→17:03)
[2018-05-26] MEDS: Ezetimibe 10 MG TAB PO SCH (08:41)
[2018-05-26] MEDS: busPIRone HCl 5 MG TAB PO SCH ×2 (08:41→20:35)
[2018-05-26] MEDS: Digoxin 0.125 MG TAB PO SCH (08:41)
[2018-05-26] MEDS: predniSONE 20 MG TAB PO SCH (08:42)
[2018-05-26] MEDS: Aspirin 81 mg Enteric Coated Tablet PO SCH (08:42)
[2018-05-26] MEDS: Enoxaparin Sodium 40 MG/0.4 ML SYRINGE SC SCH (08:42)
[2018-05-26] MEDS: Loratadine 10 MG TAB PO SCH (08:42)
[2018-05-26] MEDS: Furosemide 80 MG TAB PO SCH ×2 (08:42→14:58)
[2018-05-26] MEDS: Potassium Chloride 10 MEQ TAB PO SCH ×2 (08:42→17:03)
[2018-05-26] MEDS: FLUoxetine HCl 20 MG CAP PO SCH (08:42)
--- NOTE | 2018-05-26 09:49 | PRG ---
DATE OF SERVICE: 05/26/2018 SUBJECTIVE: The patient remains in the hospital for treatment of COPD exacerbation. She says she feels better today. OBJECTIVE: VITAL SIGNS: Temperature is 98.6, pulse 82, respirations 20, O2 saturation 97% on 2.5 L, and blood pressure 123/63. HEENT: Unremarkable. NECK: No JVD. LUNGS: No wheezing at the current time. CARDIAC: S1 and S2, regular. ABDOMEN: Soft. EXTREMITIES: No edema. ASSESSMENT: 1. Chronic obstructive pulmonary disease. 2. Severe deconditioning. PLAN: The patient will need some other step for going home such as rehab or detention. I think her main issue is deconditioning. I think her COPD is about at baseline. I reviewed her order. She will continue the steroids and the nebulization treatments. Job ID: [id number]
[2018-05-26] MEDS: Atorvastatin Calcium 40 MG TAB PO SCH (20:35)
[2018-05-26] MEDS: traMADol HCl 50 MG TAB PO PRN (20:35)
[2018-05-27] MEDS: Levothyroxine Sodium 75 MCG TAB PO SCH (05:00)
[2018-05-27 06:37] LABS: Phosphorus 5.1 mg/dL (2.3-4.7)
[2018-05-27] MEDS: Mometasone/Formoterol 120 PUFF INHALER INH SCH ×2 (07:11→18:26)
--- NOTE | 2018-05-27 08:27 | PRG ---
DATE OF SERVICE: 05/26/2018 SUBJECTIVE: The patient is feeling somewhat better today. She has no new complaints. She has decided that she would prefer to go to rehab at discharge. OBJECTIVE: VITAL SIGNS: Temperature 98.7, pulse 84, respirations 18, O2 saturation 98% on 2.5 L nasal cannula, BP 125/66. GENERAL APPEARANCE: Age-appropriate female, in no distress. She is wearing nasal cannula oxygen instead of the BiPAP. She is conversant, awake, alert, happy. HEART: Regular rate and rhythm without murmurs, gallops, or rubs. LUNGS: Diminished throughout with minimal scattered rales, but much improved from the prior day. ABDOMEN: Soft, nontender, and nondistended. EXTREMITIES: Warm and dry without edema. LABORATORY DATA: Sodium 141, potassium 4.1, chloride 86, CO2 of 42, BUN 29, creatinine is 0.88, glucose 111, calcium 10.1, magnesium 2.2. White count 17.9, hemoglobin 12.4, and platelets 445. IMPRESSION AND PLAN: 1. Acute on chronic respiratory failure with hypercapnia, improving. Hypercapnia has improved on labs. 2. Chronic obstructive pulmonary disease exacerbation. Continue with nebulizer treatments, steroids, antibiotics, and Dulera. Pulmonology following. Feels like the patient is near her baseline. 3. Pneumonia. Continue with p.o. doxycycline. 4. Chronic diastolic heart failure. Continue Coreg and diuretics. 5. Hyperlipidemia. Continue atorvastatin and Zetia. 6. Disposition. The patient would prefer to go to inpatient rehab. She has already talked to the telehealth case manager about this as they have given the patient a choice letter and talk to inpatient rehab. Await their evaluation. Believe the patient could be discharged by tomorrow. Job ID: [id number]
[2018-05-27] MEDS: busPIRone HCl 5 MG TAB PO SCH ×2 (08:33→20:53)
[2018-05-27] MEDS: Doxycycline 100 MG CAP PO SCH ×2 (08:33→20:53)
[2018-05-27] MEDS: Digoxin 0.125 MG TAB PO SCH (08:33)
[2018-05-27] MEDS: predniSONE 20 MG TAB PO SCH (08:33)
[2018-05-27] MEDS: Ezetimibe 10 MG TAB PO SCH (08:33)
[2018-05-27] MEDS: FLUoxetine HCl 20 MG CAP PO SCH (08:33)
[2018-05-27] MEDS: Aspirin 81 mg Enteric Coated Tablet PO SCH (08:33)
[2018-05-27] MEDS: traMADol HCl 50 MG TAB PO PRN ×3 (08:34→20:53)
[2018-05-27] MEDS: Loratadine 10 MG TAB PO SCH (08:35)
[2018-05-27] MEDS: Enoxaparin Sodium 40 MG/0.4 ML SYRINGE SC SCH (08:35)
[2018-05-27] MEDS: Furosemide 80 MG TAB PO SCH ×2 (08:35→13:23)
[2018-05-27] MEDS: Potassium Chloride 10 MEQ TAB PO SCH ×2 (08:35→17:51)
[2018-05-27] MEDS: Carvedilol 3.125 MG TAB PO SCH ×2 (08:35→17:51)
--- NOTE | 2018-05-27 10:11 | PRG ---
DATE OF SERVICE: 05/27/2018 SUBJECTIVE: She feels back to her baseline, has no complaints. OBJECTIVE: VITAL SIGNS: Temperature 98.1, pulse 83, respirations 18, O2 saturation 96% on 3 L, and blood pressure 127/60. HEENT: Unremarkable. NECK: No JVD. CHEST: Clear to auscultation. CARDIAC: S1 and S2 regular. ABDOMEN: Soft. EXTREMITIES: No edema. ASSESSMENT: Chronic obstructive pulmonary disease with exacerbation - back to baseline. PLAN: I think the patient probably needs to go to rehab or skilled. I do not believe she requires further acute care at this time. Job ID: [id number]
--- NOTE | 2018-05-27 11:14 | PQF ---
GORDY AYALA DAVID R MD [id number] CLINICAL DOCUMENTATION IMPROVEMENT CLARIFICATION FORM: ICD-10 Updated PLEASE DO AN ADDENDUM TO THE PROGRESS NOTE WITH ANY DOCUMENTATION UPDATES OR ADDITIONS AND CARRY THROUGH TO DC SUMMARY. THANK YOU. DATE: 05/27 ATTN: DR. CORINA MICHAEL Please exercise your independent, professional judgment in responding to the clarification form. Clinical indicators are provided on the bottom of this form for your review. Please check appropriate box(s): Conflicting documentation was noted in the Medical Record, please clarify if patient is being treated/monitored for: [ ] CHRONIC DIASTOLIC HF (PN 05/26) [x ] ACUTE ON CHRONIC DIASTOLIC HF (PULM CONSULT 05/25) [ ] Other diagnosis [ ] Unable to determine In addition, please specify: Present on Admission (POA): [ x ] Yes [ ] No [ ] Unable to determine For continuity of documentation, please document condition throughout progress notes and discharge summary. Thank You. CLINICAL INDICATORS - SIGNS / SYMPTOMS/ LABS BNP: 207 H&P DOCUMENTATION 05/25 (FERNANDA): IMPRESSION & PLAN: 3) EVIDENCE OF SIGNIFICANT HEART FAILURE, ALTHOUGH PREVIOUS ECHO SHOWED A NORMAL EF W/ DIASTOLIC DYSFUNCTION. WE WILL CONTINUE W/COREG & DIURETICS PULMONOLOGY CONSULT 05/25 (SVETLANA): ASSESSMENT: 3) ACUTE ON CHRONIC DIASTOLIC HF - WE WILL CONTINUE TO DIURESE THE PATIENT DOWN TO EUVOLEMIA PN 05/26 (FERNANDA): IMPRESSION & PLAN: 4) CHRONIC DIASTOLIC HF. CONTINUE COREG & DIURETICS RISKS: HX CHRONIC DIASTOLIC HF SLIGHTLY ELEVATED BNP (207) TREATMENT: PO DIURETIC (LASIX 05/25 - PRESENT) THANK YOU! Bridgett (This form is maintained as a part of the permanent medical record) 2014 [employer]. All Rights Reserved Bridgett Andrade RN, BSN [email or web address] Office: [phone] [facility]
--- NOTE | 2018-05-27 18:30 | PRG ---
DATE OF SERVICE: 05/27/2018 SUBJECTIVE: The patient is feeling substantially better. She has no complaints, sounds like she is ready to go to rehab. PHYSICAL EXAMINATION: VITAL SIGNS: Temperature 99, pulse 84-88, O2 saturation 97% on 3L nasal cannula, BP 113/62. GENERAL APPEARANCE: Age-appropriate female, in no distress. Awake, alert, oriented, pleasant, and cooperative. HEART: Regular rate and rhythm. No murmurs, gallops, or rubs. LUNGS: Diminished with some minimal right basilar rales. ABDOMEN: Soft, nontender, and nondistended. EXTREMITIES: No cyanosis, clubbing, or edema. SKIN: Warm and dry. LABORATORY DATA: Magnesium was 1.4. Phosphorus 5.1. IMPRESSION AND PLAN: 1. Acute on chronic respiratory failure with hypercapnia, improving. 2. Chronic obstructive pulmonary disease exacerbation. Continue nebulizer, steroids, antibiotics, Dulera. Pulmonary consult. 3. Pneumonia. Continue with p.o. doxycycline. 4. Acute on chronic diastolic dysfunction, stable. This was present on admission. 5. Hyperlipidemia. Continue atorvastatin and Zetia. DISPOSITION: The patient is ready to go to rehab at any time. Job ID: [id number]
[2018-05-27] MEDS: Atorvastatin Calcium 40 MG TAB PO SCH (20:53)
[2018-05-28] MEDS: traMADol HCl 50 MG TAB PO PRN ×2 (05:40→13:15)
[2018-05-28] MEDS: Levothyroxine Sodium 75 MCG TAB PO SCH (05:40)
[2018-05-28 05:57] LABS: Phosphorus 4.8 mg/dL (2.3-4.7)
[2018-05-28] MEDS: Mometasone/Formoterol 120 PUFF INHALER INH SCH ×2 (06:26→19:17)
[2018-05-28] MEDS: predniSONE 20 MG TAB PO SCH (09:36)
[2018-05-28] MEDS: Loratadine 10 MG TAB PO SCH (09:36)
[2018-05-28] MEDS: Digoxin 0.125 MG TAB PO SCH (09:36)
[2018-05-28] MEDS: Potassium Chloride 10 MEQ TAB PO SCH ×2 (09:36→16:06)
[2018-05-28] MEDS: Furosemide 80 MG TAB PO SCH ×2 (09:36→14:59)
[2018-05-28] MEDS: Aspirin 81 mg Enteric Coated Tablet PO SCH (09:36)
[2018-05-28] MEDS: busPIRone HCl 5 MG TAB PO SCH ×2 (09:37→21:06)
[2018-05-28] MEDS: FLUoxetine HCl 20 MG CAP PO SCH (09:37)
[2018-05-28] MEDS: Carvedilol 3.125 MG TAB PO SCH ×2 (09:37→16:06)
[2018-05-28] MEDS: Doxycycline 100 MG CAP PO SCH ×2 (09:37→21:07)
[2018-05-28] MEDS: Ezetimibe 10 MG TAB PO SCH (09:37)
[2018-05-28] MEDS: Enoxaparin Sodium 40 MG/0.4 ML SYRINGE SC SCH (09:37)
--- NOTE | 2018-05-28 13:05 | PRG ---
DATE OF SERVICE: DISCUSSION: Ms. Gr has no acute complaints this morning. She says that her breathing is doing fine and she is anxiously awaiting placement over in rehab. OBJECTIVE: VITAL SIGNS: Her temperature is 97.9, pulse 73, respirations 18, O2 saturation 97% on 3 L, and blood pressure 119/62. HEENT: Unremarkable. NECK: No adenopathy or JVD. LUNGS: Diminished, but clear breath sounds. CARDIAC: S1 and S2 regular without audible murmur. ABDOMEN: Soft and nontender. EXTREMITIES: She has some skin bruising over her arms and hands. LABORATORY DATA: No labs were obtained today. ASSESSMENT: Chronic obstructive pulmonary disease, that is currently stable on her current medication regimen. RECOMMENDATION: She is stable for transfer to rehab. There are no acute pulmonary issues. I am available this weekend for assistance if needed. Please call. Job ID: [id number]
--- NOTE | 2018-05-28 14:48 | PDOC.PN ---
- Subjective Encounter Start Date: 05/28/18 (f/u dyspnea) Encounter Start Time: 14:46 Subjective: Pt reports her breathing is comfortable. cchronic back pain is not well -: controlled. She denies any n/v/abd pain - Objective Resuscitation Status - Order Detail: 05/25/18 08:24 Resuscitation Status Routine Resuscitation Status: DNAR: NO Resuscitation Discussed with: Patient Vital Signs & Weight: Vital Signs (12 hours) Temp Pulse Pulse Resp BP BP BP 05/28/18 11:15 97.9 F 73 18 119/62 05/28/18 10:13 86 121/60 122/68 05/28/18 09:36 81 05/28/18 07:41 98 F 79 18 122/58 L 05/28/18 06:24 85 16 05/28/18 03:25 97.7 F 75 20 117/67 Pulse Ox Pulse Ox 05/28/18 11:15 97 05/28/18 10:13 95 05/28/18 09:36 05/28/18 07:41 97 05/28/18 06:24 97 05/28/18 03:25 98 Weight Admit Weight 152 lb 8.958 oz Weight 141 lb 9.6 oz Most Recent Monitor Data Heart Rate from ECG 95 NIBP 111/54 NIBP BP-Mean 73 Respiration from ECG 26 SpO2 96 I&O: 05/27/18 05/28/18 05/29/18 06:59 06:59 06:59 Intake Total 1080 1430 Output Total 3700 2900 Balance -2620 -1470 Result Diagrams: 05/26/18 06:09 05/26/18 06:08 EKG Reviewed by me: Yes (a sensed v paced) Phys Exam - Physical Examination Constitutional: NAD Neck: no nodes Respiratory: no wheezing, no rales, no rhonchi fair air movement Cardiovascular: RRR, no significant murmur Gastrointestinal: soft, non-tender, no distention, positive bowel sounds Musculoskeletal: no edema back -location of pain SI joint, no ttp Psychiatric: normal affect Dx/Plan (1) Acute on chronic respiratory failure with hypoxemia Code(s): J96.21 - ACUTE AND CHRONIC RESPIRATORY FAILURE WITH HYPOXIA Status: Acute (2) COPD exacerbation Code(s): J44.1 - CHRONIC OBSTRUCTIVE PULMONARY DISEASE W (ACUTE) EXACERBATION Status: Chronic (3) Dyslipidemia Code(s): E78.5 - HYPERLIPIDEMIA, UNSPECIFIED Status: Chronic Comment: stable (4) GERD (gastroesophageal reflux disease) Code(s): K21.9 - GASTRO-ESOPHAGEAL REFLUX DISEASE WITHOUT ESOPHAGITIS Status: Chronic Qualifiers: (5) HTN (hypertension) Code(s): I10 - ESSENTIAL (PRIMARY) HYPERTENSION Status: Chronic Qualifiers: (6) Hypothyroidism Code(s): E03.9 - HYPOTHYROIDISM, UNSPECIFIED Status: Chronic (7) Obesity (BMI 30.0-34.9) Code(s): E66.9 - OBESITY, UNSPECIFIED Status: Chronic - Plan * Pneumonia/COPD - followed by Pulm * Doxycycline - will plan for 5 day course * prednisone & nebs - continue * Chronic back pain - will schedule tramadol at 8 am, 12, 4 pm and 8 pm per pt' s home routine - discussed with pharmacy * * continue home meds as ordered * * recheck electrolytes in AM - pt on high dose lasix at home. Chronic metabolic alkalosis. * * dvt prophy - lovenox * gi prophy - not indicated * code status DNAR * * pt awaiting rehab approval from insurance, ready for transfer * reviewed plan of care with patient, no questions or further needs at end of eval * no abnormality on tele - can go to medical bed.
[2018-05-28] MEDS: traMADol HCl 50 MG TAB PO SCH ×2 (16:06→21:04)
[2018-05-28] MEDS: Atorvastatin Calcium 40 MG TAB PO SCH (21:05)
[2018-05-29 04:56] LABS: #Eosinphils 0.2 thou/uL (0.0-0.7); #Lymphocytes 2.5 thou/uL (1.20-3.40); #Monocytes 1.6 thou/uL (0.11-0.59); #Neutrophils 11.6 thou/uL (1.40-6.50); %Basophils 0.2 % (0.0-1.0); %Lymphocytes 15.6 % (21.0-51.0); %Monocytes 9.9 % (0.0-10.0); %Neutrophils 73.2 % (42.0-75.0); Hemoglobin 12.8 g/dL (12.0-16.0); Mean Corpuscular HGB CONC 31.5 g/dL (32.0-36.0); Mean Corpuscular Hemoglobin 28.4 pg (27.0-31.0); Mean Platelet Volume 6.7 fL (7.4-10.4); Platelet Count 362 thou/uL (130-400); RBC Distribution Width 14.5 % (11.5-14.5); White Blood Cell (WBC) Count 15.9 thou/uL (4.8-10.8)
[2018-05-29 05:29] LABS: Anion Gap 12 mmol/L (10-20); Chloride 87 mmol/L (98-107); Potassium 3.2 mmol/L (3.5-5.1); Sodium 139 mmol/L (136-145)
[2018-05-29 05:41] LABS: BUN (Urea Nitrogen) 29 mg/dL (9.8-20.1); Calc. Creatinine Clearance 61 mL/min (70-130); Calcium 9.4 mg/dL (7.8-10.44); Carbon Dioxide 43 mmol/L (23-31); Estimated GFR-MDRD 67; Glucose 90 mg/dL (83-110); Phosphorus 3.4 mg/dL (2.3-4.7)
[2018-05-29] MEDS: Levothyroxine Sodium 75 MCG TAB PO SCH (06:54)
[2018-05-29] MEDS: Enoxaparin Sodium 40 MG/0.4 ML SYRINGE SC SCH (07:53)
[2018-05-29] MEDS: Ezetimibe 10 MG TAB PO SCH (07:53)
[2018-05-29] MEDS: Doxycycline 100 MG CAP PO SCH ×2 (07:53→21:48)
[2018-05-29] MEDS: FLUoxetine HCl 20 MG CAP PO SCH (07:53)
[2018-05-29] MEDS: busPIRone HCl 5 MG TAB PO SCH ×2 (07:53→21:47)
[2018-05-29] MEDS: Carvedilol 3.125 MG TAB PO SCH ×2 (07:54→16:51)
[2018-05-29] MEDS: Loratadine 10 MG TAB PO SCH (07:54)
[2018-05-29] MEDS: predniSONE 20 MG TAB PO SCH (07:54)
[2018-05-29] MEDS: Digoxin 0.125 MG TAB PO SCH (07:54)
[2018-05-29] MEDS: Potassium Chloride 10 MEQ TAB PO SCH ×2 (07:55→16:51)
[2018-05-29] MEDS: traMADol HCl 50 MG TAB PO SCH ×4 (07:55→21:48)
[2018-05-29] MEDS: Aspirin 81 mg Enteric Coated Tablet PO SCH (07:55)
[2018-05-29] MEDS: Furosemide 80 MG TAB PO SCH ×2 (07:56→14:29)
[2018-05-29] MEDS: Mometasone/Formoterol 120 PUFF INHALER INH SCH ×2 (08:51→19:35)
--- NOTE | 2018-05-29 13:42 | PRG ---
DATE OF SERVICE: 05/29/2018 SUBJECTIVE: The patient is doing well, had no complaints. She is awaiting a bed in rehab. OBJECTIVE: VITAL SIGNS: On exam, temperature 98.5, pulse 89, respirations 22, O2 saturation 96% on 2 L, and blood pressure 116/67. HEENT: Clear. NECK: No JVD. CHEST: Clear. CARDIAC: S1 and S2, regular. ABDOMEN: Soft. EXTREMITIES: No edema. LABORATORY DATA: White blood cell count 15.9, hematocrit 40, platelet count 362. Sodium 139, potassium 3.2, chloride 87, CO2 of 43, BUN 29, creatinine 0.8, glucose 90. ASSESSMENT: 1. Chronic obstructive pulmonary disease. 2. Pneumonia. The problems above are clinically stable and she is ready for transfer to rehab. I have reviewed her medications and agree with the current treatment. Job ID: [id number]
[2018-05-29] MEDS ORDERED: Potassium Chloride 20 MEQ TAB PO SCH (15:45)
--- NOTE | 2018-05-29 16:41 | PDOC.PN ---
- Subjective Encounter Start Date: 05/29/18 (f/u dyspnea) Encounter Start Time: 16:39 Subjective: Pt reports she is feeling well. Denies any pain. Is transferring to -: bedside commode without problems. - Objective Resuscitation Status - Order Detail: 05/25/18 08:24 Resuscitation Status Routine Resuscitation Status: DNAR: NO Resuscitation Discussed with: Patient Vital Signs & Weight: Vital Signs (12 hours) Temp Pulse Resp BP Pulse Ox 05/29/18 16:03 98.3 F 90 18 118/75 96 05/29/18 12:00 98.5 F 89 22 H 116/67 96 05/29/18 10:56 98.5 F 89 22 H 116/67 96 05/29/18 08:56 98 05/29/18 08:51 80 24 H 98 05/29/18 08:00 98 05/29/18 07:54 84 05/29/18 07:00 98.3 F 77 20 113/74 98 Weight Admit Weight 152 lb 8.958 oz Weight 141 lb 9.6 oz Most Recent Monitor Data Heart Rate from ECG 95 NIBP 111/54 NIBP BP-Mean 73 Respiration from ECG 26 SpO2 96 I&O: 05/28/18 05/29/18 05/30/18 06:59 06:59 06:59 Intake Total 1430 Output Total 2900 Balance -1470 Result Diagrams: 05/29/18 04:08 05/29/18 04:08 Phys Exam - Physical Examination Constitutional: NAD Respiratory: no rhonchi faint bi-basilar rales, fair air movement 2/6 systolic murmur throughout Gastrointestinal: soft, non-tender, no distention, positive bowel sounds Musculoskeletal: no edema Neurological: non-focal, moves all 4 limbs Psychiatric: normal affect Dx/Plan (1) Acute on chronic respiratory failure with hypoxemia Code(s): J96.21 - ACUTE AND CHRONIC RESPIRATORY FAILURE WITH HYPOXIA Status: Acute (2) COPD exacerbation Code(s): J44.1 - CHRONIC OBSTRUCTIVE PULMONARY DISEASE W (ACUTE) EXACERBATION Status: Chronic (3) Dyslipidemia Code(s): E78.5 - HYPERLIPIDEMIA, UNSPECIFIED Status: Chronic Comment: stable (4) GERD (gastroesophageal reflux disease) Code(s): K21.9 - GASTRO-ESOPHAGEAL REFLUX DISEASE WITHOUT ESOPHAGITIS Status: Chronic Qualifiers: (5) HTN (hypertension) Code(s): I10 - ESSENTIAL (PRIMARY) HYPERTENSION Status: Chronic Qualifiers: (6) Hypothyroidism Code(s): E03.9 - HYPOTHYROIDISM, UNSPECIFIED Status: Chronic (7) Obesity (BMI 30.0-34.9) Code(s): E66.9 - OBESITY, UNSPECIFIED Status: Chronic (8) Hypokalemia Code(s): E87.6 - HYPOKALEMIA Status: Acute - Plan * * Pneumonia/COPD - followed by Pulm * Doxycycline - will plan for 5 day course * prednisone ordered for 5 day course * continue nebs at current frequency * Chronic back pain - pt reports improvement with scheduled tramadol 4 times daily * * continue home meds as ordered * * potassium low - one time dose of 40meq kcl. continue the scheduled potassium per home routine * * chronic metabolic alkalosis - slightly higher than baseline - on high dose furosemide and appears euvolemic * * dvt prophy - lovenox * gi prophy - not indicated * code status DNAR * * pt awaiting rehab approval from insurance, ready for transfer * reviewed plan of care with patient, no questions or further needs at end of eval
--- NOTE | 2018-05-29 18:47 | EKG ---
Test Reason : DYSPNEA Blood Pressure : / mmHG Vent. Rate : 110 BPM Atrial Rate : 110 BPM P-R Int : 100 ms QRS Dur : 132 ms QT Int : 362 ms P-R-T Axes : 086 073 018 degrees QTc Int : 489 ms Electronic ventricular pacemaker Left ventricular hypertrophy Confirmed by BALA READ, ALIE Garcia ([id number]), sound editor KHALIDA RENEE ([id number]) on 05/29/2018 6:47:16 PM Referred By: Confirmed By:ALIE MCKENNA MD
[2018-05-29] MEDS: Atorvastatin Calcium 40 MG TAB PO SCH (21:47)
[2018-05-30] MEDS: Levothyroxine Sodium 75 MCG TAB PO SCH (05:23)
[2018-05-30 07:42] LABS: BUN (Urea Nitrogen) 29 mg/dL (9.8-20.1); Calc. Creatinine Clearance 61 mL/min (70-130); Estimated GFR-MDRD 67; Glucose 78 mg/dL (83-110)
[2018-05-30 07:48] LABS: Chloride 88 mmol/L (98-107); Potassium 4.5 mmol/L (3.5-5.1); Sodium 141 mmol/L (136-145)
[2018-05-30] MEDS: Ezetimibe 10 MG TAB PO SCH (07:50)
[2018-05-30] MEDS: FLUoxetine HCl 20 MG CAP PO SCH (07:50)
[2018-05-30] MEDS: traMADol HCl 50 MG TAB PO SCH ×4 (07:50→21:20)
[2018-05-30] MEDS: Potassium Chloride 10 MEQ TAB PO SCH ×2 (07:51→17:49)
[2018-05-30] MEDS: Digoxin 0.125 MG TAB PO SCH (07:51)
[2018-05-30] MEDS: busPIRone HCl 5 MG TAB PO SCH ×2 (07:51→21:19)
[2018-05-30] MEDS: Furosemide 80 MG TAB PO SCH ×2 (07:51→13:58)
[2018-05-30] MEDS: predniSONE 20 MG TAB PO SCH (07:51)
[2018-05-30] MEDS: Aspirin 81 mg Enteric Coated Tablet PO SCH (07:52)
[2018-05-30] MEDS: Carvedilol 3.125 MG TAB PO SCH ×2 (07:52→17:48)
[2018-05-30] MEDS: Loratadine 10 MG TAB PO SCH (07:52)
[2018-05-30] MEDS: Enoxaparin Sodium 40 MG/0.4 ML SYRINGE SC SCH (07:52)
[2018-05-30 08:06] LABS: Carbon Dioxide 37 mmol/L (23-31)
[2018-05-30 08:09] LABS: Anion Gap 21 mmol/L (10-20)
[2018-05-30] MEDS: Mometasone/Formoterol 120 PUFF INHALER INH SCH ×2 (08:31→19:45)
[2018-05-30] MEDS ORDERED: Artificial Tears 18 DROP/0.9 ML EA EYE PRN (14:36)
--- NOTE | 2018-05-30 16:30 | PDOC.PN ---
- Subjective Encounter Start Date: 05/30/18 (f/u COPD exacerbation) Encounter Start Time: 14:15 Subjective: Pt reports her eyes are irritated. She denies any changes in breathing, -: chest pain or any new sx. - Objective Resuscitation Status - Order Detail: 05/25/18 08:24 Resuscitation Status Routine Resuscitation Status: DNAR: NO Resuscitation Discussed with: Patient Vital Signs & Weight: Vital Signs (12 hours) Temp Pulse Resp BP Pulse Ox 05/30/18 15:45 98.7 F 71 20 115/72 96 05/30/18 11:27 98.0 F 85 18 132/82 95 05/30/18 08:32 98 05/30/18 08:31 85 20 98 05/30/18 08:00 98 05/30/18 07:51 74 05/30/18 07:35 98.5 F 75 18 123/79 98 Weight Admit Weight 152 lb 8.958 oz Weight 141 lb 9.6 oz Most Recent Monitor Data Heart Rate from ECG 95 NIBP 111/54 NIBP BP-Mean 73 Respiration from ECG 26 SpO2 96 I&O: 05/29/18 05/30/18 05/31/18 06:59 06:59 06:59 Intake Total 1400 Balance 1400 Result Diagrams: 05/29/18 04:08 05/30/18 06:52 Phys Exam - Physical Examination Constitutional: NAD Respiratory: no wheezing, no rhonchi fair air movement, faint rales at bases Cardiovascular: RRR 2/6 GURINDER Gastrointestinal: soft, non-tender, no distention, positive bowel sounds Musculoskeletal: no edema Neurological: non-focal, moves all 4 limbs Psychiatric: normal affect Skin: no rash Dx/Plan (1) Acute on chronic respiratory failure with hypoxemia Code(s): J96.21 - ACUTE AND CHRONIC RESPIRATORY FAILURE WITH HYPOXIA Status: Acute (2) COPD exacerbation Code(s): J44.1 - CHRONIC OBSTRUCTIVE PULMONARY DISEASE W (ACUTE) EXACERBATION Status: Chronic (3) Dyslipidemia Code(s): E78.5 - HYPERLIPIDEMIA, UNSPECIFIED Status: Chronic Comment: stable (4) GERD (gastroesophageal reflux disease) Code(s): K21.9 - GASTRO-ESOPHAGEAL REFLUX DISEASE WITHOUT ESOPHAGITIS Status: Chronic Qualifiers: (5) HTN (hypertension) Code(s): I10 - ESSENTIAL (PRIMARY) HYPERTENSION Status: Chronic Qualifiers: (6) Hypothyroidism Code(s): E03.9 - HYPOTHYROIDISM, UNSPECIFIED Status: Chronic (7) Obesity (BMI 30.0-34.9) Code(s): E66.9 - OBESITY, UNSPECIFIED Status: Chronic (8) Hypokalemia Code(s): E87.6 - HYPOKALEMIA Status: Resolved - Plan * * Pneumonia/COPD - followed by Pulm * Doxycycline - completed 5 day course * prednisone ordered for 5 day course * continue nebs at current frequency * Chronic back pain - continue scheduled tramadol 4 times daily * * continue home meds as ordered * * potassium normal - continue usual home dose * * chronic alkalosis (likely combined respiratory and metabolic) - back to baseline * * dvt prophy - lovenox * gi prophy - not indicated * code status DNAR * * pt awaiting rehab approval from insurance, ready for transfer * reviewed plan of care with patient, no questions or further needs at end of eval.
[2018-05-30] MEDS: Atorvastatin Calcium 40 MG TAB PO SCH (21:19)
[2018-05-31] MEDS: Levothyroxine Sodium 75 MCG TAB PO SCH (06:27)
[2018-05-31] MEDS: Mometasone/Formoterol 120 PUFF INHALER INH SCH ×2 (06:32→19:40)
[2018-05-31] MEDS: Digoxin 0.125 MG TAB PO SCH (08:23)
[2018-05-31] MEDS: Aspirin 81 mg Enteric Coated Tablet PO SCH (08:23)
[2018-05-31] MEDS: Loratadine 10 MG TAB PO SCH (08:23)
[2018-05-31] MEDS: predniSONE 20 MG TAB PO SCH (08:23)
[2018-05-31] MEDS: busPIRone HCl 5 MG TAB PO SCH ×2 (08:23→20:19)
[2018-05-31] MEDS: Potassium Chloride 10 MEQ TAB PO SCH ×2 (08:23→16:32)
[2018-05-31] MEDS: Furosemide 80 MG TAB PO SCH ×2 (08:23→14:47)
[2018-05-31] MEDS: Carvedilol 3.125 MG TAB PO SCH ×2 (08:24→16:32)
[2018-05-31] MEDS: Enoxaparin Sodium 40 MG/0.4 ML SYRINGE SC SCH (08:24)
[2018-05-31] MEDS: Ezetimibe 10 MG TAB PO SCH (08:24)
[2018-05-31] MEDS: traMADol HCl 50 MG TAB PO SCH ×4 (08:24→20:18)
[2018-05-31] MEDS: FLUoxetine HCl 20 MG CAP PO SCH (08:24)
[2018-05-31 09:15] LABS: #Basophils 0.1 thou/uL (0.0-0.2); #Eosinphils 0.1 thou/uL (0.0-0.7); #Lymphocytes 3.2 thou/uL (1.20-3.40); #Monocytes 1.2 thou/uL (0.11-0.59); #Neutrophils 13.5 thou/uL (1.40-6.50); %Basophils 0.4 % (0.0-1.0); %Eosinophils 0.5 % (0.0-10.0); %Lymphocytes 17.9 % (21.0-51.0); %Monocytes 6.7 % (0.0-10.0); %Neutrophils 74.6 % (42.0-75.0); Hemoglobin 13.6 g/dL (12.0-16.0); Mean Corpuscular HGB CONC 31.7 g/dL (32.0-36.0); Mean Corpuscular Hemoglobin 28.6 pg (27.0-31.0); Mean Corpuscular Volume 90.4 fL (78.0-98.0); Mean Platelet Volume 6.8 fL (7.4-10.4); Platelet Count 339 thou/uL (130-400); RBC Distribution Width 14.5 % (11.5-14.5); Red Blood Cell (RBC) Count 4.74 mill/uL (4.20-5.40); White Blood Cell (WBC) Count 18.1 thou/uL (4.8-10.8)
[2018-05-31 09:34] LABS: BUN (Urea Nitrogen) 31 mg/dL (9.8-20.1); Calc. Creatinine Clearance 61 mL/min (70-130); Calcium 9.7 mg/dL (7.8-10.44); Estimated GFR-MDRD 67; Glucose 101 mg/dL (83-110)
[2018-05-31 09:45] LABS: Anion Gap 13 mmol/L (10-20); Carbon Dioxide 40 mmol/L (23-31); Chloride 89 mmol/L (98-107); Sodium 138 mmol/L (136-145)
--- NOTE | 2018-05-31 09:53 | PRG ---
DATE OF SERVICE: 05/31/2018 SUBJECTIVE: Ms. Gr is doing well, has no complaints. OBJECTIVE: VITAL SIGNS: Temperature is 98.4, pulse 80, respirations 20, O2 saturation 99%, and blood pressure 119/70. HEENT: Unremarkable. NECK: No JVD. CHEST: Clear. CARDIAC: S1 and S2. Regular. ABDOMEN: Soft. EXTREMITIES: No edema. LABORATORY DATA: White blood cell count 18, hematocrit 42, and platelet count 339. Sodium 141, potassium 4.5, chloride 88, CO2 37, BUN 29, creatinine 0.9, and glucose 78. ASSESSMENT: 1. Chronic obstructive pulmonary disease with exacerbation. 2. Recent pneumonia. PLAN: She is stable enough for discharge to rehab. Job ID: [id number]
--- NOTE | 2018-05-31 10:59 | PDOC.PN ---
- Subjective Encounter Start Date: 05/31/18 Encounter Start Time: 11:20 Subjective: Patient feeling better. No SOB on O2 currently. Awaiting -: rehab placement. - Objective Resuscitation Status - Order Detail: 05/25/18 08:24 Resuscitation Status Routine Resuscitation Status: DNAR: NO Resuscitation Discussed with: Patient MAR Reviewed: Yes Vital Signs & Weight: Vital Signs (12 hours) Temp Pulse Resp BP Pulse Ox 05/31/18 08:23 70 05/31/18 07:20 98.4 F 70 20 119/71 99 05/31/18 06:33 99 05/31/18 06:32 69 20 99 05/31/18 04:27 98.2 F 73 20 137/76 100 05/31/18 00:33 97.9 F 78 20 111/60 98 Weight Admit Weight 152 lb 8.958 oz Weight 141 lb 9.6 oz Most Recent Monitor Data Heart Rate from ECG 95 NIBP 111/54 NIBP BP-Mean 73 Respiration from ECG 26 SpO2 96 I&O: 05/30/18 05/31/18 06/01/18 06:59 06:59 06:59 Intake Total 1400 480 Balance 1400 480 Result Diagrams: 05/31/18 08:47 05/31/18 08:47 Phys Exam - Physical Examination Constitutional: NAD HEENT: moist MMs Respiratory: no wheezing, no rales, no rhonchi Cardiovascular: RRR, no significant murmur Gastrointestinal: soft, positive bowel sounds Neurological: non-focal Psychiatric: normal affect, A&O x 3 Dx/Plan (1) Acute on chronic respiratory failure with hypoxemia Code(s): J96.21 - ACUTE AND CHRONIC RESPIRATORY FAILURE WITH HYPOXIA Status: Acute (2) COPD exacerbation Code(s): J44.1 - CHRONIC OBSTRUCTIVE PULMONARY DISEASE W (ACUTE) EXACERBATION Status: Chronic (3) Pneumonia Code(s): J18.9 - PNEUMONIA, UNSPECIFIED ORGANISM Status: Resolved Comment: completed antibiotics (4) Chronic diastolic CHF (congestive heart failure) Code(s): I50.32 - CHRONIC DIASTOLIC (CONGESTIVE) HEART FAILURE Status: Chronic Comment: appears compensated for now (5) Dyslipidemia Code(s): E78.5 - HYPERLIPIDEMIA, UNSPECIFIED Status: Chronic Comment: stable (6) GERD (gastroesophageal reflux disease) Code(s): K21.9 - GASTRO-ESOPHAGEAL REFLUX DISEASE WITHOUT ESOPHAGITIS Status: Chronic Qualifiers: (7) HTN (hypertension) Code(s): I10 - ESSENTIAL (PRIMARY) HYPERTENSION Status: Chronic Qualifiers: (8) Hypothyroidism Code(s): E03.9 - HYPOTHYROIDISM, UNSPECIFIED Status: Chronic - Plan cont current plan of care, respiratory therapy discharge to rehab once approved * . - Discharge Day Encounter end time: 11:30
--- NOTE | 2018-05-31 13:46 | PQF ---
GORDY AYALA RYAN ANDREW MD [id number] CLINICAL DOCUMENTATION IMPROVEMENT CLARIFICATION FORM: ICD-10 Updated PLEASE DO AN ADDENDUM TO THE PROGRESS NOTE WITH ANY DOCUMENTATION UPDATES OR ADDITIONS AND CARRY THROUGH TO DC SUMMARY. THANK YOU. DATE: 05/31 ATTN: DR. RAMON KHAN Please exercise your independent, professional judgment in responding to the clarification form. Clinical indicators are provided on the bottom of this form for your review. Please check appropriate box(s): [ ] Pneumonia secondary to (specify organism / underlying disease) [ X ] Simple Pneumonia (community acquired - nosocomial) [ ] Pneumonia of unknown etiology [ ] Other diagnosis [ ] Unable to determine In addition, please specify: Present on Admission (POA): [ X ] Yes [ ] No [ ] Unable to determine For continuity of documentation, please document condition throughout progress notes and discharge summary. Thank You. CLINICAL INDICATORS - SIGNS / SYMPTOMS / LABS H&P DOCUMENTATION 05/25 (FERNANDA): IMPRESSION: 2) PNEUMONIA APPEARS TO BE STABLE. CONTINUE W/ PO DOXYCYCLINE FOR NOW PN 05/26- (FERNANDA): IMPRESSION: 3) PNEUMONIA - CONTINUE W/ PO DOXYCYCLINE PN 05/28- (KORI): PLAN: PNEUMONIA/COPD - FOLLOWED BY PULM PN 05/31 (ERIN): DX/PLAN: 3) PNEUMONIA, UNSPECIFIED ORGANISM, RESOLVED PULMONOLOGY PN 05/31 (MAURA): 2) RECENT PNEUMONIA RISKS: A/C RESPIRATORY FAILURE ACUTE COPD EXACERBATION PNEUMONIA TREATMENT: PO ANTIBIOTIC (DOXYCYCLINE 05/25 - ) PULMONOLOGY CONSULT THANK YOU! Bridgett (This form is maintained as a part of the permanent medical record) 2015 [employer]. All Rights Reserved Bridgett Andrade RN, BSN [email or web address] Office: [phone] [facility]
[2018-05-31] MEDS: Atorvastatin Calcium 40 MG TAB PO SCH (20:18)
[2018-06-01] MEDS: Levothyroxine Sodium 75 MCG TAB PO SCH (05:16)
[2018-06-01] MEDS: Mometasone/Formoterol 120 PUFF INHALER INH SCH ×2 (06:32→18:28)
[2018-06-01] MEDS: Potassium Chloride 10 MEQ TAB PO SCH ×2 (08:17→16:29)
[2018-06-01] MEDS: FLUoxetine HCl 20 MG CAP PO SCH (08:17)
[2018-06-01] MEDS: busPIRone HCl 5 MG TAB PO SCH ×2 (08:17→20:00)
[2018-06-01] MEDS: Furosemide 80 MG TAB PO SCH ×2 (08:17→14:48)
[2018-06-01] MEDS: traMADol HCl 50 MG TAB PO SCH ×4 (08:17→19:58)
[2018-06-01] MEDS: Carvedilol 3.125 MG TAB PO SCH ×2 (08:17→16:29)
[2018-06-01] MEDS: Ezetimibe 10 MG TAB PO SCH (08:17)
[2018-06-01] MEDS: Loratadine 10 MG TAB PO SCH (08:17)
[2018-06-01] MEDS: Enoxaparin Sodium 40 MG/0.4 ML SYRINGE SC SCH (08:17)
[2018-06-01] MEDS: Digoxin 0.125 MG TAB PO SCH (08:17)
[2018-06-01] MEDS: Aspirin 81 mg Enteric Coated Tablet PO SCH (08:17)
--- NOTE | 2018-06-01 09:59 | PDOC.PN ---
- Subjective Encounter Start Date: 06/01/18 Encounter Start Time: 11:40 Subjective: Patient reports SOB improved. Weak and working with PT. Awaiting rehab -: approval. - Objective Resuscitation Status - Order Detail: 05/25/18 08:24 Resuscitation Status Routine Resuscitation Status: DNAR: NO Resuscitation Discussed with: Patient MAR Reviewed: Yes Vital Signs & Weight: Vital Signs (12 hours) Temp Pulse Resp BP Pulse Ox 06/01/18 08:20 100 06/01/18 08:17 73 06/01/18 07:08 98.2 F 73 20 121/74 100 06/01/18 06:34 99 06/01/18 06:32 73 16 99 06/01/18 04:10 97.8 F 74 16 117/75 100 05/31/18 23:49 97.9 F 81 16 117/72 97 Weight Admit Weight 152 lb 8.958 oz Weight 141 lb 9.6 oz Most Recent Monitor Data Heart Rate from ECG 95 NIBP 111/54 NIBP BP-Mean 73 Respiration from ECG 26 SpO2 96 I&O: 05/31/18 06/01/18 06/02/18 06:59 06:59 06:59 Intake Total 480 2075 Balance 480 2075 Result Diagrams: 05/31/18 08:47 05/31/18 08:47 Phys Exam - Physical Examination Constitutional: NAD HEENT: moist MMs on NC O2 Respiratory: no wheezing, no rales, no rhonchi Cardiovascular: RRR Gastrointestinal: soft, positive bowel sounds Neurological: non-focal Psychiatric: normal affect, A&O x 3 Dx/Plan (1) Acute on chronic respiratory failure with hypoxemia Code(s): J96.21 - ACUTE AND CHRONIC RESPIRATORY FAILURE WITH HYPOXIA Status: Acute (2) COPD exacerbation Code(s): J44.1 - CHRONIC OBSTRUCTIVE PULMONARY DISEASE W (ACUTE) EXACERBATION Status: Chronic (3) Pneumonia Code(s): J18.9 - PNEUMONIA, UNSPECIFIED ORGANISM Status: Resolved Comment: completed antibiotics (4) Chronic diastolic CHF (congestive heart failure) Code(s): I50.32 - CHRONIC DIASTOLIC (CONGESTIVE) HEART FAILURE Status: Chronic Comment: appears compensated for now (5) Dyslipidemia Code(s): E78.5 - HYPERLIPIDEMIA, UNSPECIFIED Status: Chronic Comment: stable (6) GERD (gastroesophageal reflux disease) Code(s): K21.9 - GASTRO-ESOPHAGEAL REFLUX DISEASE WITHOUT ESOPHAGITIS Status: Chronic Qualifiers: (7) HTN (hypertension) Code(s): I10 - ESSENTIAL (PRIMARY) HYPERTENSION Status: Chronic Qualifiers: (8) Hypothyroidism Code(s): E03.9 - HYPOTHYROIDISM, UNSPECIFIED Status: Chronic - Plan cont current plan of care, respiratory therapy, DVT proph w/lovenox rehab approval pending * . - Discharge Day Encounter end time: 11:50
[2018-06-01] MEDS: Atorvastatin Calcium 40 MG TAB PO SCH (20:00)
[2018-06-02] MEDS: Levothyroxine Sodium 75 MCG TAB PO SCH (05:11)
[2018-06-02] MEDS: Mometasone/Formoterol 120 PUFF INHALER INH SCH (06:37)
[2018-06-02] MEDS: Ezetimibe 10 MG TAB PO SCH (08:18)
[2018-06-02] MEDS: busPIRone HCl 5 MG TAB PO SCH (08:18)
[2018-06-02] MEDS: FLUoxetine HCl 20 MG CAP PO SCH (08:19)
[2018-06-02] MEDS: traMADol HCl 50 MG TAB PO SCH ×2 (08:19→12:40)
[2018-06-02] MEDS: Furosemide 80 MG TAB PO SCH (08:19)
[2018-06-02] MEDS: Carvedilol 3.125 MG TAB PO SCH (08:19)
[2018-06-02] MEDS: Potassium Chloride 10 MEQ TAB PO SCH (08:19)
[2018-06-02] MEDS: Aspirin 81 mg Enteric Coated Tablet PO SCH (08:19)
[2018-06-02] MEDS: Digoxin 0.125 MG TAB PO SCH (08:20)
[2018-06-02] MEDS: Enoxaparin Sodium 40 MG/0.4 ML SYRINGE SC SCH (08:20)
[2018-06-02] MEDS: Loratadine 10 MG TAB PO SCH (08:20)
[2018-06-02 11:37] VITALS: BP 111/75; TEMP 98.8
--- NOTE | 2018-06-02 12:12 | PDOC.PN ---
- Subjective Encounter Start Date: 06/02/18 Encounter Start Time: 12:00 Subjective: Patient feeling back to baseline. Has O2 and nebs at home. - Objective Resuscitation Status - Order Detail: 05/25/18 08:24 Resuscitation Status Routine Resuscitation Status: DNAR: NO Resuscitation Discussed with: Patient ALEX Reviewed: Yes Vital Signs & Weight: Vital Signs (12 hours) Temp Pulse Resp BP BP Pulse Ox 06/02/18 11:37 98.8 F 91 18 111/75 93 L 06/02/18 08:20 83 06/02/18 08:19 99 06/02/18 08:00 98.3 F 81 14 118/72 99 06/02/18 06:39 98 06/02/18 06:37 83 16 98 06/02/18 04:00 98.1 F 85 20 121/75 98 Weight Admit Weight 152 lb 8.958 oz Weight 141 lb 9.6 oz Most Recent Monitor Data Heart Rate from ECG 95 NIBP 111/54 NIBP BP-Mean 73 Respiration from ECG 26 SpO2 96 I&O: 06/01/18 06/02/18 06/03/18 06:59 06:59 06:59 Intake Total 2074 2124 Balance 2074 2124 Result Diagrams: 05/31/18 08:47 05/31/18 08:47 Phys Exam - Physical Examination Constitutional: NAD HEENT: moist MMs Respiratory: no wheezing, no rales, no rhonchi Cardiovascular: RRR, no significant murmur Gastrointestinal: soft, positive bowel sounds Neurological: non-focal Psychiatric: normal affect, A&O x 3 Dx/Plan (1) Acute on chronic respiratory failure with hypoxemia Code(s): J96.21 - ACUTE AND CHRONIC RESPIRATORY FAILURE WITH HYPOXIA Status: Acute (2) COPD exacerbation Code(s): J44.1 - CHRONIC OBSTRUCTIVE PULMONARY DISEASE W (ACUTE) EXACERBATION Status: Chronic (3) Pneumonia Code(s): J18.9 - PNEUMONIA, UNSPECIFIED ORGANISM Status: Resolved Comment: completed antibiotics (4) Chronic diastolic CHF (congestive heart failure) Code(s): I50.32 - CHRONIC DIASTOLIC (CONGESTIVE) HEART FAILURE Status: Chronic Comment: appears compensated for now (5) Dyslipidemia Code(s): E78.5 - HYPERLIPIDEMIA, UNSPECIFIED Status: Chronic Comment: stable (6) GERD (gastroesophageal reflux disease) Code(s): K21.9 - GASTRO-ESOPHAGEAL REFLUX DISEASE WITHOUT ESOPHAGITIS Status: Chronic Qualifiers: (7) HTN (hypertension) Code(s): I10 - ESSENTIAL (PRIMARY) HYPERTENSION Status: Chronic Qualifiers: (8) Hypothyroidism Code(s): E03.9 - HYPOTHYROIDISM, UNSPECIFIED Status: Chronic - Plan denied by rehab, will go home with home health, d/c home, finished -: steroids and abx. Has home O2. F/u PCP and director workers compensation as O/P. * . - Discharge Day Encounter end time: 12:10
--- NOTE | 2018-06-02 14:33 | DIS ---
DATE OF ADMISSION: 05/25/2018 DATE OF DISCHARGE: 06/02/2018 PRIMARY CARE PHYSICIAN: Carlos Mayorga MD REASON FOR ADMISSION: COPD exacerbation with pneumonia. DIAGNOSES AT DISCHARGE: 1. Acute on chronic respiratory failure with hypoxia. 2. Chronic obstructive pulmonary disease exacerbation. 3. Pneumonia, resolved. 4. Chronic diastolic congestive heart failure at baseline. 5. Dyslipidemia. 6. Gastroesophageal reflux disease. 7. Hypertension. 8. Hypothyroidism. PROCEDURES: None. CONSULTATIONS: Pulmonology, Dr. Wheeler and Dr. Keyes. SUMMARY OF HOSPITAL COURSE: This is a 73-year-old female recently discharged less than 24 hours prior to this hospitalization for COPD exacerbation with pneumonia. The patient had been treated with IV antibiotics, steroids, and nebulizer treatments. She was discharged home. The patient reports that when she got home, she started having exacerbation of her shortness of breath and presented back to the ED again. She was continued on her oral doxycycline and was able to complete her course. Given nebulizers, steroids, and improved in the hospitalization. The patient reported that she felt weak and would like to look at going to rehabilitation, so we did a rehab evaluation. The patient did not qualify for rehab stay, however, and so when she had stabilized back on her home oxygen, doing well after having finished her steroid and antibiotic course, she is being discharged back home. DISCHARGE MANAGEMENT: Discharged home with [facility]. ACTIVITY: As tolerated. DIET: Healthy heart diet. THERAPY: Physical and occupational therapy at home. Continue her oxygen and nebulizer treatments at home as well. DISCHARGE MEDICATIONS: 1. Aspirin 81 mg daily, 30 tablets dispensed. 2. Claritin 10 mg daily, 30 tablets dispensed. 3. Continue atorvastatin 80 mg daily. 4. Buspirone 15 mg twice a day. 5. Carvedilol 3.125 mg twice a day. 6. Digoxin 0.125 mg. 7. Zetia 10 mg daily. 8. Prozac 20 mg daily. 9. Furosemide 80 mg twice a day. 10. Levothyroxine 75 mcg daily. 11. Dulera 100/5 mcg inhaled twice a day. 12. Potassium chloride 10 mEq twice a day. 13. Tessalon Perles as needed. Arranging the details of this dictation took 32 minutes. Job ID: [id number]
== END 2018-06-02 14:22 | disposition home health service (06) | DRG 189 ==
LOC: ERS 05:39 → ERHOLD 07:05 → CCU 13:24 → 2NO 23:16 → SURG A 05-28 17:34
PROVIDERS: ADMIT Internal Medicine; ATTEND Internal Medicine
DX: J96.22 Acute and chronic respiratory failure with hypercapnia (principal); J18.9 Pneumonia, unspecified organism; I50.33 Acute on chronic diastolic (congestive) heart failure; J44.1 Chronic obstructive pulmonary disease with (acute) exacerbation; J44.0 Chronic obstructive pulmonary disease with (acute) lower respiratory infection; J96.21 Acute and chronic respiratory failure with hypoxia; E78.5 Hyperlipidemia, unspecified; I11.0 Hypertensive heart disease with heart failure; E03.9 Hypothyroidism, unspecified; E66.9 Obesity, unspecified; Z68.26 Body mass index [BMI] 26.0-26.9, adult; K21.9 Gastro-esophageal reflux disease without esophagitis; E87.6 Hypokalemia
CPT/HCPCS: 36415; 71045; 80048; 80053; 82550; 82553; 82805; 83735; 83880; 84100; 84484; 85025; 93005; 94640; 94660; 94760; J1650; J2920; J3475; J7050; J7620

== ENCOUNTER 2018-06-05 23:08 | Inpatient (IN) | payer MEDICARE ==
[2018-06-05] MEDS ORDERED: Fentanyl 100 MCG/2 ML VIAL ONE (23:27)
[2018-06-05 23:37] LABS: Hemoglobin 13.5 g/dL (12.0-16.0); Mean Corpuscular Hemoglobin 29.2 pg (27.0-31.0); Mean Corpuscular Volume 91.2 fL (78.0-98.0); Mean Platelet Volume 7.4 fL (7.4-10.4); Platelet Count 216 thou/uL (130-400); Red Blood Cell (RBC) Count 4.64 mill/uL (4.20-5.40); White Blood Cell (WBC) Count 25.5 thou/uL (4.8-10.8)
[2018-06-05 23:42] LABS: INR-International Normal Ratio 0.9; Prothrombin Time 12.5 SEC (12.0-14.7)
--- NOTE | 2018-06-05 23:43 | RAD ---
PORTABLE SUPINE CHEST: 06/05/18 HISTORY: Dyspnea. COMPARISON: 05/25/18. ET tube is in place with tip above jw. AICD leads again noted. Bibasilar atelectasis and/or infil trates similar in appearance to the prior exam. The upper lung truong are clear and unchanged. IMPRESSION: No significant interval change. POS: ALFRED
[2018-06-05 23:48] LABS: Actual Bicarbonate (HCO3a) 32.2 mEq/L (22-28); Analyzer IN Cardio ER; Base Excess (BEa) 9.3 mEq/L (-2.0 to +3.0); CO2 Tension 37.7 mmHg (35.0-45.0); Calcium, Ionized 1.12 mmol/L (1.12-1.30); Carboxyhemoglobin (COHb) 0.5 gm% (0.0-3.0); Hemoglobin (Hb) 14.4 g/dL (12.0-16.0); O2 Tension (PaO2) 112.9 mmHg (> 70.0); Potassium - ABG Lab 3.15 mmol/L (3.70-5.30)
[2018-06-05 23:48] LABS: PTT 18.8 SEC (22.9-36.1)
[2018-06-05 23:53] LABS: Acetaminophen Less than 6.0 mcg/mL (10.0-30.0); Alcohol Less than 10 mg/dL (Less than 10); Salicylate Less than 8.0 mg/dL (15.0-30.0)
[2018-06-05 23:53] LABS: Puncture Site LRA; pH, Arterial 7.55 (7.35-7.45)
[2018-06-05 23:54] LABS: ALV-art Gradient 125.175 (0-20)
[2018-06-05 23:54] LABS: ALT (SGPT) 79 U/L (8-55); AST (SGOT) 70 U/L (5-34); Albumin 3.9 g/dL (3.4-4.8); Alkaline Phosphatase 86 U/L (40-150); Anion Gap 15 mmol/L (10-20); BUN (Urea Nitrogen) 40 mg/dL (9.8-20.1); Bilirubin, Total 0.5 mg/dL (0.2-1.2); CK (CPK) 67 U/L (29-168); Calc. Creatinine Clearance 0 mL/min (70-130); Calcium 9.5 mg/dL (7.8-10.44); Carbon Dioxide 37 mmol/L (23-31); Chloride 93 mmol/L (98-107); Estimated GFR-MDRD 39; Globulin 2.2 g/dL (2.4-3.5); Glucose 203 mg/dL (83-110); Potassium 3.7 mmol/L (3.5-5.1); Protein, Total 6.1 g/dL (6.0-8.3); Sodium 141 mmol/L (136-145)
[2018-06-06 00:03] LABS: Band 3 % (5-11); Lymphocytes 11 % (21-51); MDiff Complete? YES; Monocytes 8 % (0-10); Neutrophil 78 % (42-75)
[2018-06-06 00:15] LABS: CKMB 6.6 ng/mL (0-6.6)
[2018-06-06 00:42] LABS: Bilirubin Negative (Negative); Blood, Urine Negative (Negative); Clarity CLEAR (Clear); Glucose, Urine (Dipstick) Negative (Negative); Leukocyte Negative (Negative); Nitrite Negative (Negative); Protein, Urine (Dipstick) Negative (Neg-Trace); Specific Gravity, Urine 1.008 (1.002-1.036); Urobilinogen 0.2 mg/dL (0.2-1.0)
[2018-06-06] MEDS ORDERED: Aspirin 300 MG Suppository ONE (00:51)
[2018-06-06 00:53] LABS: Amphetamine Not Detected (NotDetected); Barbiturates Screen Not Detected (NotDetected); Benzodiazepine Screen Not Detected (NotDetected); Cocaine Metabolite Screen Not Detected (NotDetected); Medtox Control Line Valid? VALID (VALID); Medtox Reader # READER 4; Methadone Not Detected (NotDetected); Methamphetamine Not Detected (NotDetected); Opiate Screen Not Detected (NotDetected); Oxycodone Screen Not Detected (NotDetected); Phencyclidine (PCP) Not Detected (NotDetected); THC/Cannabinoid Screen Not Detected (NotDetected); Tricyclic Screen Not Detected (NotDetected)
[2018-06-06] MEDS ORDERED: Ventilator Sedation Protocol 1 EACH FS ONE (01:19)
[2018-06-06] MEDS ORDERED: Cefepime 2 GM VIAL ONE (01:23)
[2018-06-06] MEDS ORDERED: Ondansetron PF 4 MG/2 ML Vial IVP PRN (01:24)
[2018-06-06] MEDS ORDERED: Ondansetron ODT 4 MG TAB PO PRN (01:24)
[2018-06-06] MEDS ORDERED: DISCONTINUE PREVIOUS NARCOTIC PAIN MEDICATIONS AND BENZODIAZEPINES FS SCH (01:26)
[2018-06-06] MEDS ORDERED: Fentanyl BOLUS 250 ML IVPB PRN (01:26)
[2018-06-06] MEDS ORDERED: Lorazepam 2 MG/ML VIAL SLOW IVP PRN (01:26)
[2018-06-06] MEDS ORDERED: Propofol 1,000 MG/100 ML VIAL IV PRN (01:26)
[2018-06-06] MEDS ORDERED: Morphine 2 MG/ML SYRINGE SLOW IVP PRN (01:26)
[2018-06-06] MEDS ORDERED: Propofol BOLUS 1,000 MG/100 ML VIAL IV PRN (01:26)
[2018-06-06 02:47] LABS: Troponin I 0.168 ng/mL (< 0.028)
[2018-06-06] MEDS ORDERED: Sodium Chloride 0.9% 1,000 ML IV SCH ×2 (03:00→09:15)
--- NOTE | 2018-06-06 04:04 | HP ---
PRIMARY CARE PHYSICIAN: Carlos Mayorga MD CODE STATUS: Full code. TIME OF EVALUATION: 01:00 a.m. CHIEF COMPLAINT: Shortness of breath. HISTORY OF PRESENT ILLNESS: A 73-year-old female patient with known past medical history of COPD, multiple admissions, came to the hospital, intubated by EMS. The patient's history was reported as the patient was having severe, gradually worsening shortness of breath, she was found to be tachypneic, fatigue, bilateral wheezing. The patient was started on DuoNeb and Solu-Medrol, also was tried on CPAP by EMS, but the patient does not get better, so the patient was intubated. By the time of my examination, the patient seems to be stable. The patient has been placed in ICU. We will consult Pulmonary, symptoms are severe, likely due to her COPD exacerbation only alleviating factor was medical treatment. REVIEW OF SYSTEMS: Unable to obtain. The patient is intubated and sedated. KNOWN ALLERGIES: Codeine, , penicillin, and sulfa. REPORTED MEDICATIONS: Buspirone, potassium chloride, furosemide, aspirin, levothyroxine, digoxin, fluoxetine, atorvastatin, metolazone, tramadol, Zetia, carvedilol, loratadine, and guaifenesin. PHYSICAL EXAMINATION: VITAL SIGNS: On presentation, blood pressure 110/72 with heart rate 104, and respiratory rate was 18. GENERAL APPEARANCE: The patient is intubated, sedated, not in acute distress. HEENT: Eyes, normal conjunctivae. Moist oral mucosa. Anicteric. No JVD. RESPIRATORY: Bilateral air entry that is decreased with no rales. Bilateral wheezing. Symmetric expansion. CARDIOVASCULAR: The patient is mildly tachycardic. No murmurs. No gallop. No edema. ABDOMEN: Soft. Normal bowel sounds. MUSCULOSKELETAL: Baseline range of motion and strength. No tenderness. SKIN: Warm, intact. No pallor. No rash. No redness. Peripheral pulses are present. Capillary refill seems to be intact. NEUROLOGIC: No evidence of any new focal weakness. The patient is intubated, unable to fully explore. PSYCH: Unable to fully explore. IMAGING: EKG was reviewed. The patient has a paced rhythm at the rate of 105 with TN 100 and QRS 132. Chest x-ray was reviewed. The patient has no significant interval change. LABORATORY DATA: Reviewed. The patient has white count 25.5, hemoglobin 13.5, MCV 91.2, and platelet count 216. Coagulation was done was normal. Blood gas: PH 7.55 with pCO2 37.7, PO2 of 112. This was done on SIMV at the rate of 18, inspired oxygen of 40, tidal volume 400, pressure support 10, and PEEP 5. Chemistry: Sodium 141, potassium 3.7, chloride 93, carbon dioxide 27, anion gap 15, BUN 40, creatinine 1.33, GFR 89, glucose 203, lactic acid 1.3, calcium 9.5, total bilirubin 0.5, AST 70, ALT 79, troponin 0.070. The patient has a history of borderline troponins. Beta-natriuretic peptide 85.5. Urine was done was negative and then drug screen was done was negative. ASSESSMENT AND PLAN: The patient has been placed in the hospital with following medical problems: 1. Acute chronic obstructive pulmonary disease exacerbation, very severe: The patient needing intubation. The patient has been placed in the ICU, the patient will be started on antibiotics, nebulizers, steroids, continue mechanical ventilation. Consult Pulmonary. 2. Acute on chronic hypoxic respiratory failure, needing intubation, treatment as above. Likely secondary to chronic obstructive pulmonary disease exacerbation. 3. Possible sepsis, unclear etiology. A chest x-ray did not reveal pneumonia. Given the severity of illness, the patient has been started on antibiotics. This can be stepped down as soon as we have some results from the initial workup. 4. Acute kidney injury. The patient has an increasing more than 0.3 mg/dL. No need for any acute intervention at this point, the patient will receive some hydration, we will monitor her kidney function. We will treat accordingly. 5. Mildly elevated troponin is likely secondary to [id number] myocardial infarction type 2, we will monitor, we will treat accordingly. We will trend troponins. 6. Deep venous thrombosis prophylaxis. 7. Hyperlipidemia. Low-cholesterol diet is advised. Reconcile home medications. 8. Controlled hypertension, reconcile home medications. Adjust as needed. Job ID: [id number]
[2018-06-06] MEDS: Levothyroxine Sodium 75 MCG TAB PER TUBE SCH (05:46)
[2018-06-06 05:51] LABS: Hemoglobin 12.8 g/dL (12.0-16.0); Mean Corpuscular HGB CONC 31.4 g/dL (32.0-36.0); Mean Corpuscular Hemoglobin 28.3 pg (27.0-31.0); Mean Platelet Volume 7.2 fL (7.4-10.4); Platelet Count 178 thou/uL (130-400); Red Blood Cell (RBC) Count 4.52 mill/uL (4.20-5.40); White Blood Cell (WBC) Count 21.2 thou/uL (4.8-10.8)
[2018-06-06] MEDS ORDERED: methylPREDNISolone Sod Succ 40 MG VIAL IVP SCH (06:00)
[2018-06-06 06:04] LABS: Anion Gap 15 mmol/L (10-20); BUN (Urea Nitrogen) 39 mg/dL (9.8-20.1); Calc. Creatinine Clearance 44 mL/min (70-130); Calcium 9.1 mg/dL (7.8-10.44); Carbon Dioxide 33 mmol/L (23-31); Chloride 97 mmol/L (98-107); Estimated GFR-MDRD 44; Glucose 178 mg/dL (83-110); Potassium 3.7 mmol/L (3.5-5.1); Sodium 141 mmol/L (136-145)
[2018-06-06 06:11] LABS: Troponin I 0.177 ng/mL (< 0.028)
[2018-06-06 06:14] LABS: Band 15 % (5-11); Lymphocytes 4 % (21-51); MDiff Complete? YES; Monocytes 6 % (0-10); Neutrophil 75 % (42-75)
[2018-06-06] MEDS ORDERED: Mometasone/Formoterol 120 PUFF INHALER INH SCH (06:30)
[2018-06-06] MEDS: fentaNYL Citrate/PF 2,000 MCG in Sodium Chloride 0.9% 60 ML IV SCH ×2 (07:39→23:31)
--- NOTE | 2018-06-06 08:06 | RAD ---
CHEST 1 VIEW: Date: 06/06/18 INDICATION: History of central line placement. COMPARISON: Prior exam dated 06/05/18. FINDINGS: Chronic lung changes are stable. There is a new right IJ central venous catheter projecting in the re gion of the cavoatrial junction. ET tube and AICD are unchanged. Osseous structures are similar appea ring. IMPRESSION: New right IJ central venous catheter. No pneumothorax. Remainder of the examination appears similar t o the comparison. POS: BH
--- NOTE | 2018-06-06 09:39 | CON ---
DATE OF CONSULTATION: 06/06/2018 SERVICE: Pulmonary Medicine. REASON FOR CONSULT: Respiratory failure/intubated patient. HISTORY OF PRESENT ILLNESS: The patient is a 73-year-old white female with end-stage COPD, who is oxygen dependent. She had been in the hospital 3 times this month. She was strongly encouraged to go to a rehabilitation center or jail facility, but apparently she declined this and opted to go home. Either way, she had progressive shortness of breath over the last 3 days. She had some shortness of breath and EMS Services were contacted. She was intubated in the field and brought to the emergency department via [employer]. Ultimately, she was given some steroids, nebulized medications, and antibiotics. She is currently on mechanical ventilation. She cannot provide any additional elements of the history, though she is wide awake. Otherwise, there has been no interval change to her condition. PAST MEDICAL HISTORY: 1. Chronic hypoxic and hypercapnic respiratory failure. 2. COPD, severe. 3. Dyslipidemia. 4. Hypertension. 5. Chronic diastolic heart failure. PAST SURGICAL HISTORY: 1. Cholecystectomy. 2. Defibrillator placement. 3. Tubal ligation. FAMILY HISTORY: Noncontributory. SOCIAL HISTORY: She has a greater than [id number] history of smoking, but quit a couple of years ago. She has no exposure to chemicals, dust, asbestos, or tuberculosis. Denies any drugs or significant alcohol use. ALLERGIES: CODEINE, PENICILLIN, AND SULFA. MEDICATIONS: List of her inpatient medications was reviewed and modified. REVIEW OF SYSTEMS: The review of systems cannot be obtained as the patient is currently intubated and sedated. PHYSICAL EXAMINATION: VITAL SIGNS: Afebrile, pulse 101, blood pressure 90/60, respirations 14, and saturation 98% on 30% FiO2 and a PEEP of 5. HEENT: Normocephalic and atraumatic. Sclerae are white. Conjunctivae are pink. Oral mucosa is moist without lesions. LUNGS: Decreased air entry. There is a prolonged expiratory phase. Crackles and rhonchi and wheezing are all appreciated. HEART: Normal rate, regular. ABDOMEN: Soft, nontender, and nondistended. Bowel sounds are positive. MUSCULOSKELETAL: No cyanosis or clubbing. No pitting in bilateral lower extremities. NEUROLOGIC: Grossly nonfocal. LABORATORY DATA: WBC 21.2, hemoglobin 12.8, and platelets 178,000. PH of 7.55, pCO2 of 37, and pO2 of 112. This was when she was on a rate of 18 and tidal volume of 400. Creatinine 1.20, above baseline of 0.8, but downtrending. Bicarb 33 (baseline closer to 37). Troponin is up-trending to 0.177. BNP 85. Lactate 1.3. Liver function studies are essentially unremarkable except for marginally elevated AST and ALT. Urinalysis is unremarkable. Urine drug screen is also negative. Alcohol, acetaminophen, and salicylates are also unremarkable. IMAGING DATA: Chest x-ray demonstrates left humeral head IO is in place. Endotracheal tube is in good position. There is a right-sided central catheter. The tip is at the cavoatrial junction. The cardiac silhouette is fairly narrow. I do not appreciate any acute cardiopulmonary abnormality, though she does have very prominent pulmonary vasculature. ASSESSMENT: 1. Acute on chronic hypoxic and hypercapnic respiratory failure. 2. Chronic obstructive pulmonary disease with acute exacerbation. 3. Severe deconditioning. 4. Chronic diastolic heart failure with history of volume overload events. DISCUSSION AND PLAN: We will minimize her fluids. We will give the patient steroids, nebulized medications, and antibiotics. She will be maintained on mechanical ventilation for the next 24 hours. From my perspective, she is probably going to need some ventilatory assistance at home in order to make it. Because of her advanced deconditioning, I do not think that home environment is safe for her any longer. We will continue our discussions with her once we have that opportunity after she is extubated in a couple of days. Palliative Care consultation will once again be placed. Critical care time: 30 minutes. Job ID: [id number] [email or web address]
[2018-06-06] MEDS: Potassium Chloride 10 MEQ TAB PO SCH ×2 (10:29→17:42)
[2018-06-06] MEDS: Ezetimibe 10 MG TAB PER TUBE SCH (10:29)
[2018-06-06] MEDS: Aspirin 81 mg Enteric Coated Tablet PER TUBE SCH (10:29)
[2018-06-06] MEDS: Digoxin 0.125 MG TAB PER TUBE SCH (10:29)
[2018-06-06] MEDS: Atorvastatin Calcium 40 MG TAB PER TUBE SCH (10:29)
[2018-06-06] MEDS: Famotidine/PF 20 mg/2ml Vial SLOW IVP SCH (10:30)
[2018-06-06] MEDS: FLUoxetine HCl 20 MG CAP PER TUBE SCH (10:30)
[2018-06-06] MEDS: Enoxaparin Sodium 30 MG/0.3 ML SYRINGE SC SCH (10:30)
--- NOTE | 2018-06-06 12:46 | PDOC.PN ---
- Subjective Encounter Start Date: 06/06/18 Encounter Start Time: 10:30 Ms. Gr was seen today in follow-up of acute on chronic respiratory failure. She is intubated. She is awake and alert, and follows commands. She indicates she is comfortable. - Objective Resuscitation Status - Order Detail: 06/06/18 01:24 Resuscitation Status Routine Resuscitation Status: FULL: Full Resuscitation MAR Reviewed: Yes Vital Signs & Weight: Vital Signs (12 hours) Temp Pulse Resp BP Pulse Ox 06/06/18 11:00 106 H 100/58 L 06/06/18 10:57 105 H 11 L 96 06/06/18 10:29 109 H 06/06/18 10:00 13 06/06/18 08:00 14 06/06/18 07:32 101 H 90/60 94 L 06/06/18 07:31 102 H 14 94 L 06/06/18 07:00 97.6 F 06/06/18 06:00 14 06/06/18 04:00 99.6 F 14 06/06/18 03:08 96 06/06/18 03:00 96 90/45 L 96 06/06/18 02:00 99.5 F 14 96 Weight Weight 144 lb 6.444 oz Most Recent Monitor Data Heart Rate from ECG 107 NIBP 100/58 NIBP BP-Mean 72 Respiration from ECG 18 SpO2 95 I&O: 06/05/18 06/06/18 06/07/18 06:59 06:59 06:59 Intake Total 388.4 50 Output Total 650 165 Balance -261.6 -115 Result Diagrams: 06/06/18 05:30 06/06/18 05:30 Phys Exam - Physical Examination HEENT: PERRLA Respiratory: wheezing present + rhonchi bilaterally, no rales Cardiovascular: RRR, no significant murmur, no rub Gastrointestinal: soft, non-tender, no distention, positive bowel sounds Musculoskeletal: no edema, pulses present Dx/Plan (1) Acute and chronic respiratory failure with hypoxia Code(s): J96.21 - ACUTE AND CHRONIC RESPIRATORY FAILURE WITH HYPOXIA Status: Acute (2) COPD exacerbation Code(s): J44.1 - CHRONIC OBSTRUCTIVE PULMONARY DISEASE W (ACUTE) EXACERBATION Status: Chronic (3) Chronic diastolic CHF (congestive heart failure) Code(s): I50.32 - CHRONIC DIASTOLIC (CONGESTIVE) HEART FAILURE Status: Chronic Comment: appears compensated for now (4) HTN (hypertension) Code(s): I10 - ESSENTIAL (PRIMARY) HYPERTENSION Status: Chronic Qualifiers: - Plan * Acute on chronic respiratory failure- due to COPD exacerbation- continue to treat with Duonebs, and Steroids, and Antibiotics * PCCM has been consulted. * HTN- blood pressure is stable * Chronic diastolic heart failure- compensated
[2018-06-06] MEDS: Bacteriostatic Water 30 ML VIAL FS PRN (20:47)
[2018-06-06] MEDS: methylPREDNISolone Sod Succ 40 MG VIAL IVP SCH (20:47)
[2018-06-06] MEDS: Vancomycin HCl 750 MG in Sodium Chloride 0.9% 250 ML 250 ML IVPB SCH (23:21)
[2018-06-07] MEDS: Acetaminophen 325 MG TAB PO PRN ×2 (01:43→05:56)
[2018-06-07 04:04] LABS: #Lymphocytes 0.7 thou/uL (1.20-3.40); #Monocytes 0.8 thou/uL (0.11-0.59); #Neutrophils 15.3 thou/uL (1.40-6.50); %Eosinophils 0.2 % (0.0-10.0); %Lymphocytes 3.9 % (21.0-51.0); %Monocytes 4.6 % (0.0-10.0); %Neutrophils 91.2 % (42.0-75.0); Mean Corpuscular HGB CONC 32.4 g/dL (32.0-36.0); Mean Corpuscular Hemoglobin 29.1 pg (27.0-31.0); Mean Corpuscular Volume 89.9 fL (78.0-98.0); Mean Platelet Volume 7.6 fL (7.4-10.4); Platelet Count 131 thou/uL (130-400); RBC Distribution Width 15.2 % (11.5-14.5); Red Blood Cell (RBC) Count 4.11 mill/uL (4.20-5.40); White Blood Cell (WBC) Count 16.8 thou/uL (4.8-10.8)
[2018-06-07] MEDS: Cefepime 2 GM in Sodium Chloride 0.9% 100 ML IVPB SCH ×2 (04:07→16:16)
[2018-06-07 04:23] LABS: Anion Gap 13 mmol/L (10-20); BUN (Urea Nitrogen) 40 mg/dL (9.8-20.1); Calc. Creatinine Clearance 45 mL/min (70-130); Calcium 9.3 mg/dL (7.8-10.44); Carbon Dioxide 35 mmol/L (23-31); Chloride 98 mmol/L (98-107); Digoxin 1.27 ng/mL (0.8-2.0); Estimated GFR-MDRD 45; Glucose 158 mg/dL (83-110); Magnesium 2.2 mg/dL (1.6-2.6); Phosphorus 4.9 mg/dL (2.3-4.7); Potassium 3.8 mmol/L (3.5-5.1); Sodium 142 mmol/L (136-145)
[2018-06-07] MEDS: Levothyroxine Sodium 75 MCG TAB PER TUBE SCH (05:56)
--- NOTE | 2018-06-07 08:15 | PRG ---
DATE OF SERVICE: 06/07/2018 SUBJECTIVE: Mrs. Gr remains intubated on mechanical ventilation. There have been no acute changes overnight. OBJECTIVE: VITAL SIGNS: Temperature is 100.4 with T-max of 101.4, pulse 113, blood pressure 124/65. A 24-hour intake 1194, output 1425. GENERAL: She will wake up. She is on a fentanyl drip. HEENT: Unremarkable. NECK: No adenopathy or JVD. CARDIOVASCULAR: S1 and S2. Tachycardic. LUNGS: Faint expiratory wheezes heard bilaterally. ABDOMEN: Soft, nontender. EXTREMITIES: No clubbing, cyanosis, or edema. LABORATORY DATA: White blood cell count 16.8, hematocrit 37, platelet count 131. Sodium 142, potassium 3.8, chloride 98, CO2 of 35, BUN 40, creatinine 1.1, glucose 158. IMAGING STUDIES: Chest x-ray was not done today. ASSESSMENT: 1. Acute respiratory failure requiring mechanical ventilation. 2. Febrile illness. 3. Underlying severe chronic obstructive pulmonary disease. PLAN: 1. I have lowered her ventilatory settings today in preparation of possibly getting her extubated in the next 24 hours. 2. We will recheck a chest x-ray and ABG tomorrow morning. The above encompassed 30 minutes of critical care time. Job ID: [id number]
[2018-06-07] MEDS: Enoxaparin Sodium 30 MG/0.3 ML SYRINGE SC SCH (09:35)
[2018-06-07] MEDS: methylPREDNISolone Sod Succ 40 MG VIAL IVP SCH ×2 (09:36→21:30)
[2018-06-07] MEDS: Bacteriostatic Water 30 ML VIAL FS PRN ×2 (09:36→21:30)
[2018-06-07] MEDS: Digoxin 0.125 MG TAB PER TUBE SCH (09:37)
[2018-06-07] MEDS: Atorvastatin Calcium 40 MG TAB PER TUBE SCH (09:37)
[2018-06-07] MEDS: FLUoxetine HCl 20 MG CAP PER TUBE SCH (09:38)
[2018-06-07] MEDS: Ezetimibe 10 MG TAB PER TUBE SCH (09:38)
[2018-06-07] MEDS: Potassium Chloride 10 MEQ TAB PO SCH ×2 (09:38→17:03)
[2018-06-07] MEDS: Aspirin 81 mg Enteric Coated Tablet PER TUBE SCH (09:38)
[2018-06-07] MEDS: Famotidine/PF 20 mg/2ml Vial SLOW IVP SCH (09:38)
--- NOTE | 2018-06-07 10:26 | PDOC.PN ---
- Subjective Encounter Start Date: 06/07/18 Encounter Start Time: 10:25 Ms. Gr was seen today in follow-up of Respiratory failure. She is intubated , and awake and alert. She is communicating by writing on a board. She indicates no physical problems. - Objective Resuscitation Status - Order Detail: 06/06/18 01:24 Resuscitation Status Routine Resuscitation Status: FULL: Full Resuscitation MAR Reviewed: Yes Vital Signs & Weight: Vital Signs (12 hours) Temp Pulse Resp BP 06/07/18 09:37 117 H 06/07/18 07:13 117 H 108/61 06/07/18 06:00 100.4 F H 11 L 06/07/18 04:00 14 06/07/18 03:43 104 H 06/07/18 03:00 99.5 F 06/07/18 02:00 11 L 06/07/18 01:00 101.4 F H 06/07/18 00:00 11 L 06/06/18 22:43 108 H 108/60 Weight Admit Weight 148 lb Weight 148 lb 12.992 oz Most Recent Monitor Data Heart Rate from ECG 113 NIBP 124/65 NIBP BP-Mean 84 Respiration from ECG 15 SpO2 98 I&O: 06/06/18 06/07/18 06/08/18 06:59 06:59 06:59 Intake Total 388.4 1194 Output Total 650 1425 Balance -261.6 -231 Result Diagrams: 06/07/18 03:50 06/07/18 03:50 Phys Exam - Physical Examination HEENT: PERRLA Respiratory: no wheezing, no rales + coarse breath sounds, and some rhonchi Cardiovascular: RRR, no significant murmur, no rub Gastrointestinal: soft, non-tender, no distention, positive bowel sounds Musculoskeletal: no edema, pulses present Dx/Plan (1) Acute and chronic respiratory failure with hypoxia Code(s): J96.21 - ACUTE AND CHRONIC RESPIRATORY FAILURE WITH HYPOXIA Status: Acute (2) COPD exacerbation Code(s): J44.1 - CHRONIC OBSTRUCTIVE PULMONARY DISEASE W (ACUTE) EXACERBATION Status: Chronic (3) Chronic diastolic CHF (congestive heart failure) Code(s): I50.32 - CHRONIC DIASTOLIC (CONGESTIVE) HEART FAILURE Status: Chronic Comment: appears compensated for now (4) HTN (hypertension) Code(s): I10 - ESSENTIAL (PRIMARY) HYPERTENSION Status: Chronic Qualifiers: - Plan * Acute om chronic respiratory failure with hypoxmia- slowly improving * [facility] * HTN- blood pressure is stable * Chronic diastolic heart failure- compensated .
[2018-06-07] MEDS: fentaNYL Citrate/PF 2,000 MCG in Sodium Chloride 0.9% 60 ML IV SCH (19:04)
[2018-06-07 22:44] LABS: Vancomycin, Trough 9.6 ug/mL
[2018-06-08] MEDS: Vancomycin HCl 750 MG in Sodium Chloride 0.9% 250 ML 250 ML IVPB SCH (00:04)
[2018-06-08] MEDS: Cefepime 2 GM in Sodium Chloride 0.9% 100 ML IVPB SCH ×2 (03:11→15:46)
[2018-06-08 05:36] LABS: #Lymphocytes 0.7 thou/uL (1.20-3.40); #Monocytes 0.7 thou/uL (0.11-0.59); #Neutrophils 12.4 thou/uL (1.40-6.50); %Basophils 0.1 % (0.0-1.0); %Eosinophils 0.3 % (0.0-10.0); %Lymphocytes 4.7 % (21.0-51.0); %Monocytes 5.3 % (0.0-10.0); %Neutrophils 89.6 % (42.0-75.0); Hemoglobin 12.6 g/dL (12.0-16.0); Mean Corpuscular HGB CONC 31.7 g/dL (32.0-36.0); Mean Corpuscular Hemoglobin 28.7 pg (27.0-31.0); Mean Corpuscular Volume 90.4 fL (78.0-98.0); Mean Platelet Volume 8.3 fL (7.4-10.4); Platelet Count 134 thou/uL (130-400); White Blood Cell (WBC) Count 13.8 thou/uL (4.8-10.8)
[2018-06-08 05:50] LABS: Anion Gap 14 mmol/L (10-20); BUN (Urea Nitrogen) 38 mg/dL (9.8-20.1); Calc. Creatinine Clearance 52 mL/min (70-130); Calcium 9.7 mg/dL (7.8-10.44); Carbon Dioxide 30 mmol/L (23-31); Chloride 101 mmol/L (98-107); Estimated GFR-MDRD 54; Glucose 195 mg/dL (83-110); Magnesium 2.3 mg/dL (1.6-2.6); Sodium 141 mmol/L (136-145)
[2018-06-08 05:51] LABS: Phosphorus 4.1 mg/dL (2.3-4.7)
[2018-06-08] MEDS: Levothyroxine Sodium 75 MCG TAB PER TUBE SCH (06:08)
[2018-06-08 07:50] LABS: Actual Bicarbonate (HCO3a) 33.6 mEq/L (22-28); Base Excess (BEa) 6.7 mEq/L (-2.0 to +3.0); CO2 Tension 57.9 mmHg (35.0-45.0); Carboxyhemoglobin (COHb) 0.9 gm% (0.0-3.0); Hemoglobin (Hb) 13.3 g/dL (12.0-16.0); O2 Tension (PaO2) 82.1 mmHg (> 70.0); Potassium - ABG Lab 3.83 mmol/L (3.70-5.30); pH, Arterial 7.38 (7.35-7.45)
[2018-06-08 07:53] LABS: ALV-art Gradient 66.555 (0-20); Puncture Site RR
--- NOTE | 2018-06-08 07:53 | RAD ---
FPortable frontal chest radiograph: 06/08/2018 COMPARISON: 06/06/2018 HISTORY: Fever and pneumonia FINDINGS: Stable endotracheal tube. Incompletely imaged enteric tube present, which appears to termin ate in the left upper quadrant. No pneumothorax seen. Multilead transvenous pacing device present. Patchy new opacity noted in both lung bases which could represent mild infiltrate or volume loss. IMPRESSION: Lines and tubes as detailed above. Patchy increased density inferior aspect of bilateral lung bases as above.
[2018-06-08] MEDS: Potassium Chloride 10 MEQ TAB PO SCH ×2 (08:00→16:41)
--- NOTE | 2018-06-08 08:29 | PRG ---
DATE OF SERVICE: 06/08/2018 TIME SPENT: 35 minutes of Critical Care time. SUBJECTIVE: The patient remains intubated on mechanical ventilation. She is awake and follows commands. OBJECTIVE: VITAL SIGNS: Temperature is 99.0, pulse 112, blood pressure pounds. HEENT: Unremarkable. NECK: No JVD. CHEST: Clear without wheezes or rhonchi. CARDIAC: S1 and S2. Slightly tachycardic. ABDOMEN: Soft and nontender. EXTREMITIES: . LABORATORY DATA: White blood cell count 13, hematocrit is 39.8, and platelet count 134. Sodium 141, potassium 4, chloride 101, CO2 of 30, BUN 38, creatinine 1.0, and glucose 195. DIAGNOSTIC DATA: Chest x-ray showed no changes. ASSESSMENT: 1. Chronic obstructive pulmonary disease with exacerbation. 2. Respiratory failure, requiring mechanical ventilation. PLAN: 1. The patient will be extubated. 2. Continue steroids, nebs, and antibiotics. 3. One culture grew out coag-negative Staph in the central line, looks like this was taken out of the central line the day this line was inserted, probably done in the ER. My guess is that this probably does not reflect a central line infection. Job ID: [id number]
[2018-06-08] MEDS: Enoxaparin Sodium 30 MG/0.3 ML SYRINGE SC SCH (10:45)
[2018-06-08] MEDS: Bacteriostatic Water 30 ML VIAL FS PRN (10:46)
[2018-06-08] MEDS: methylPREDNISolone Sod Succ 40 MG VIAL IVP SCH ×2 (10:46→22:14)
[2018-06-08] MEDS: Famotidine/PF 20 mg/2ml Vial SLOW IVP SCH (10:51)
[2018-06-08] MEDS: Atorvastatin Calcium 40 MG TAB PER TUBE SCH (10:51)
[2018-06-08] MEDS: Ezetimibe 10 MG TAB PER TUBE SCH (10:52)
[2018-06-08] MEDS: Aspirin 81 mg Enteric Coated Tablet PER TUBE SCH (10:53)
[2018-06-08] MEDS: FLUoxetine HCl 20 MG CAP PER TUBE SCH (10:53)
[2018-06-08] MEDS: Digoxin 0.125 MG TAB PER TUBE SCH (10:54)
[2018-06-08] MEDS ORDERED: Cepastat Lozenges 1 LOZ PO PRN (11:45)
--- NOTE | 2018-06-08 18:44 | PDOC.PN ---
- Subjective Encounter Start Date: 06/08/18 Encounter Start Time: 10:40 Pt seen for followup re: acute on chronic hypoxic and hypercapnic respiratory failure. Reports she feels better. Throat is sore. Shortness of breath is better. - Objective Resuscitation Status - Order Detail: 06/06/18 01:24 Resuscitation Status Routine Resuscitation Status: FULL: Full Resuscitation MAR Reviewed: Yes Vital Signs & Weight: Vital Signs (12 hours) Temp Pulse Resp BP Pulse Ox 06/08/18 16:00 98.7 F 06/08/18 14:36 102 H 14 99 06/08/18 12:00 98.8 F 06/08/18 10:54 113 H 06/08/18 10:10 114 H 18 97 06/08/18 08:00 99.1 F 97 06/08/18 07:42 14 93 L 06/08/18 07:20 114 H 162/69 H Weight Admit Weight 148 lb Weight 144 lb 2.917 oz Most Recent Monitor Data Heart Rate from ECG 106 NIBP 133/70 NIBP BP-Mean 91 Respiration from ECG 14 SpO2 99 I&O: 06/07/18 06/08/18 06/09/18 06:59 06:59 06:59 Intake Total 1194 1331.6 889.5 Output Total 1425 910 592 Balance -231 421.6 297.5 Result Diagrams: 06/08/18 05:11 06/08/18 05:11 EKG Reviewed by me: Yes (Tele: NSR) Phys Exam - Physical Examination Constitutional: NAD HEENT: moist MMs, sclera anicteric, oral pharynx no lesions, 2+ tonsils Neck: no nodes, no JVD, supple, full ROM Diminished air entry zoe bases Cardiovascular: RRR, no rub S1, S2 Gastrointestinal: soft, non-tender, no distention, positive bowel sounds Neurological: moves all 4 limbs Psychiatric: normal affect Deviation from normal: Oriented to person and place, not to time Dx/Plan (1) Acute on chronic respiratory failure with hypoxia and hypercapnia Code(s): J96.21 - ACUTE AND CHRONIC RESPIRATORY FAILURE WITH HYPOXIA; J96.22 - ACUTE AND CHRONIC RESPIRATORY FAILURE WITH HYPERCAPNIA Status: Acute Comment : secondary to COPD exacerbation, improved, s/p extubation. (2) COPD exacerbation Code(s): J44.1 - CHRONIC OBSTRUCTIVE PULMONARY DISEASE W (ACUTE) EXACERBATION Status: Chronic Comment: continue oxygen, steroids and bronchodilators. (3) Chronic diastolic CHF (congestive heart failure) Code(s): I50.32 - CHRONIC DIASTOLIC (CONGESTIVE) HEART FAILURE Status: Chronic Comment: stable (4) Dyslipidemia Code(s): E78.5 - HYPERLIPIDEMIA, UNSPECIFIED Status: Chronic Comment: continue statin (5) GERD (gastroesophageal reflux disease) Code(s): K21.9 - GASTRO-ESOPHAGEAL REFLUX DISEASE WITHOUT ESOPHAGITIS Status: Chronic Qualifiers: Comment: stable (6) HTN (hypertension) Code(s): I10 - ESSENTIAL (PRIMARY) HYPERTENSION Status: Chronic Qualifiers: Comment: controlled (7) Hypothyroidism Code(s): E03.9 - HYPOTHYROIDISM, UNSPECIFIED Status: Chronic Comment: continue synthroid (8) Anxiety and depression Code(s): F41.9 - ANXIETY DISORDER, UNSPECIFIED; F32.9 - MAJOR DEPRESSIVE DISORDER, SINGLE EPISODE, UNSPECIFIED Status: Chronic Comment: moderate, stable - Plan * . Review of Systems - Review of Systems Constitutional: negative: fever, chills, sweats, weakness, malaise ENT: Throat Pain Respiratory: SOB with Excertion. negative: Cough, Shortness of Breath, Pleuritic Pain, Wheezing Cardiovascular: negative: chest pain, palpitations, orthopnea, paroxysmal nocturnal dyspnea, edema, light headedness Gastrointestinal: negative: Nausea, Vomiting, Abdominal Pain, Diarrhea, Constipation, Melena, Hematochezia Genitourinary: negative: Dysuria, Frequency, Incontinence, Hematuria, Retention - Medications/Allergies Allergies/Adverse Reactions: Allergies Allergy/AdvReac Type Severity Reaction Status Date / Time codeine Allergy Hives Verified 06/06/18 02:36 levofloxacin [From Levaquin] Allergy Rash Verified 06/06/18 02:36 onion Allergy Verified 06/06/18 02:36 Penicillins Allergy Hives Verified 06/06/18 02:36 Sulfa (Sulfonamide Allergy Hives Verified 06/06/18 02:36 Antibiotics) Medications: Current Medications Acetaminophen (Tylenol) 650 mg PO Q4H PRN PRN Reason: Headache/Fever/Mild Pain (1-3) Last Admin: 06/07/18 05:56 Dose: 650 mg Albuterol/Ipratropium (Duoneb) 3 ml NEB [id number] LEA Last Admin: 06/08/18 14:36 Dose: 3 ml Aspirin (Ecotrin) 81 mg PER TUBE DAILY [facility] Last Admin: 06/08/18 10:53 Dose: 81 mg Atorvastatin Calcium (Lipitor) 80 mg PER TUBE DAILY [facility] Last Admin: 06/08/18 10:51 Dose: 80 mg Digoxin (Lanoxin) 0.125 mg PER TUBE DAILY [facility] Last Admin: 06/08/18 10:54 Dose: 0.125 mg Ezetimibe (Zetia) 10 mg PER TUBE DAILY [facility] Last Admin: 06/08/18 10:52 Dose: 10 mg Enoxaparin Sodium (Lovenox) 30 mg SC 0900 [facility] Last Admin: 06/08/18 10:45 Dose: 30 mg Famotidine (Pepcid) 20 mg SLOW IVP DAILY [facility] Last Admin: 06/08/18 10:51 Dose: 20 mg Fluoxetine HCl (Prozac) 20 mg PER TUBE DAILY [facility] Last Admin: 06/08/18 10:53 Dose: 20 mg Fentanyl Citrate 2,000 mcg/ (Sodium Chloride) 100 mls @ 0 mls/hr IV INF [facility]; Protocol Stop: 07/05/18 23:26 Last Admin: 06/07/18 19:04 Dose: 100 mls Fentanyl Citrate (Fentanyl Bolus) 250 mls @ 0 mls/hr IVPB PRN PRN PRN Reason: Breakthrough pain/agitation Stop: 07/06/18 01:26 Sodium Chloride (Normal Saline 0.9%) 1,000 mls @ 0 mls/hr IV .Q0M [facility] Cefepime HCl 2 gm/ Sodium (Chloride) 100 mls @ 200 mls/hr IVPB 0300,1500 [facility] Last Admin: 06/08/18 15:46 Dose: 100 mls Vancomycin HCl 1.25 gm/ Sodium (Chloride) 250 mls @ 166.667 mls/hr IVPB 2300 [facility] Levothyroxine Sodium (Synthroid) 75 mcg PER TUBE 0600 [facility] Last Admin: 06/08/18 06:08 Dose: 75 mcg Methylprednisolone Sodium Succinate (Solu-Medrol) 40 mg IVP BID [facility] Last Admin: 06/08/18 10:46 Dose: 40 mg Miscellaneous Medication (Pharmacy To Dose) 1 each IVPB PRN PRN PRN Reason: COPD/PULM Discontinue Previous Narcotic Pain Medications And Benzodiazepines 1 each FS .ONE [facility] Stop: 07/06/18 01:26 Ondansetron HCl (Zofran Odt) 4 mg PO Q6H PRN PRN Reason: Nausea/Vomiting Ondansetron HCl (Zofran) 4 mg IVP Q6H PRN PRN Reason: Nausea/Vomiting Potassium Chloride (Klor-Con 10) 10 meq PO BID-WM [facility] Last Admin: 06/08/18 16:41 Dose: 10 meq Propofol (Diprivan) 1,000 mg IV INF PRN; Protocol PRN Reason: TO ACHIEVE GOAL RASS Stop: 07/06/18 01:26 Propofol (Diprivan Bolus) 20 mg IV Q5MIN PRN PRN Reason: BREAKTHROUGH AGITATION Stop: 07/06/18 01:26 Sterile Water (Bacteriostatic Water) 1 ml FS PRN PRN PRN Reason: RECONSTITUTION Last Admin: 06/08/18 10:46 Dose: 1 ml Throat Lozenges (Cepastat Lozenges) 1 porfirio PO Q2H PRN PRN Reason: Sore Throat
[2018-06-08] MEDS: Vancomycin HCl 1.25 GM in Sodium Chloride 0.9% 250 ML 250 ML IVPB SCH (22:14)
[2018-06-08] MEDS ORDERED: traMADol HCl 50 MG TAB PO SCH (22:15)
[2018-06-09] MEDS: Cefepime 2 GM in Sodium Chloride 0.9% 100 ML IVPB SCH ×2 (03:41→15:25)
[2018-06-09 05:30] LABS: #Lymphocytes 0.7 thou/uL (1.20-3.40); #Monocytes 0.7 thou/uL (0.11-0.59); #Neutrophils 10.8 thou/uL (1.40-6.50); %Basophils 0.2 % (0.0-1.0); %Eosinophils 0.2 % (0.0-10.0); %Lymphocytes 5.4 % (21.0-51.0); %Monocytes 5.6 % (0.0-10.0); %Neutrophils 88.7 % (42.0-75.0); Hemoglobin 11.9 g/dL (12.0-16.0); Mean Corpuscular HGB CONC 31.7 g/dL (32.0-36.0); Mean Corpuscular Hemoglobin 28.6 pg (27.0-31.0); Mean Corpuscular Volume 90.4 fL (78.0-98.0); Platelet Count 133 thou/uL (130-400); RBC Distribution Width 14.7 % (11.5-14.5); Red Blood Cell (RBC) Count 4.16 mill/uL (4.20-5.40); White Blood Cell (WBC) Count 12.2 thou/uL (4.8-10.8)
[2018-06-09 05:51] LABS: Anion Gap 11 mmol/L (10-20); BUN (Urea Nitrogen) 38 mg/dL (9.8-20.1); Calc. Creatinine Clearance 58 mL/min (70-130); Calcium 10.1 mg/dL (7.8-10.44); Carbon Dioxide 35 mmol/L (23-31); Chloride 98 mmol/L (98-107); Estimated GFR-MDRD 62; Glucose 151 mg/dL (83-110); Magnesium 2.8 mg/dL (1.6-2.6); Potassium 4.6 mmol/L (3.5-5.1); Sodium 139 mmol/L (136-145)
[2018-06-09] MEDS: Levothyroxine Sodium 75 MCG TAB PER TUBE SCH (06:02)
--- NOTE | 2018-06-09 08:14 | PRG ---
DATE OF SERVICE: 06/09/2018 SUBJECTIVE: Ms. Gr is doing well since extubation yesterday. She is in good spirits and has no complaints. OBJECTIVE: VITAL SIGNS: Temperature 98.5, pulse 78, blood pressure 150/64, and saturation 98%. HEENT: Unremarkable. NECK: No JVD. CHEST: Clear to auscultation without wheezing. CARDIAC: S1, S2, regular. ABDOMEN: Soft. EXTREMITIES: Edematous. LABORATORY DATA: White blood cell count 12, hematocrit 37.6, and platelet count 133. Sodium 139, potassium 4.6, BUN 98, creatinine 3, chloride 98, CO2 of 35, BUN 38, creatinine 0.9, glucose 151. ASSESSMENT: 1. Chronic obstructive pulmonary disease with exacerbation. 2. Acute respiratory failure requiring mechanical ventilation, now extubated. 3. Elderly and advanced age. 4. Failure to thrive. PLAN: 1. Transfer to floor. 2. Continue steroids and antibiotics. We will increase activity as tolerated. 3. She really needs to have rehab placement. Apparently, she was denied last time. This is her third hospitalization in the last 30 days, and I think high risk for readmission. Job ID: [id number]
[2018-06-09] MEDS: Enoxaparin Sodium 40 MG/0.4 ML SYRINGE SC SCH (09:55)
[2018-06-09] MEDS: Famotidine/PF 20 mg/2ml Vial SLOW IVP SCH (09:56)
[2018-06-09] MEDS: Digoxin 0.125 MG TAB PO SCH (09:56)
[2018-06-09] MEDS: Aspirin 81 mg Enteric Coated Tablet PO SCH (09:57)
[2018-06-09] MEDS: Ezetimibe 10 MG TAB PO SCH (09:57)
[2018-06-09] MEDS: Atorvastatin Calcium 40 MG TAB PO SCH (09:57)
[2018-06-09] MEDS: Potassium Chloride 10 MEQ TAB PO SCH ×2 (09:58→17:04)
[2018-06-09] MEDS: FLUoxetine HCl 20 MG CAP PO SCH (09:58)
[2018-06-09] MEDS: traMADol HCl 50 MG TAB PO SCH ×3 (09:58→20:36)
[2018-06-09] MEDS: Bacteriostatic Water 30 ML VIAL FS PRN (09:59)
[2018-06-09] MEDS: methylPREDNISolone Sod Succ 40 MG VIAL IVP SCH ×2 (09:59→20:36)
[2018-06-09 11:46] VITALS: BMI 27.2
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
[2018-06-09] MEDS ORDERED: Famotidine 20 MG TAB PO SCH (18:30)
[2018-06-09] MEDS ORDERED: Fentanyl BOLUS 250 ML IVPB PRN (20:37)
[2018-06-09] MEDS ORDERED: Lorazepam 2 MG/ML VIAL SLOW IVP PRN (20:37)
[2018-06-09] MEDS ORDERED: DISCONTINUE PREVIOUS NARCOTIC PAIN MEDICATIONS AND BENZODIAZEPINES FS SCH (20:37)
[2018-06-09] MEDS ORDERED: Propofol 1,000 MG/100 ML VIAL IV PRN (20:37)
[2018-06-09] MEDS ORDERED: Propofol BOLUS 1,000 MG/100 ML VIAL IV PRN (20:37)
[2018-06-09] MEDS ORDERED: Morphine 2 MG/ML SYRINGE SLOW IVP PRN (20:37)
[2018-06-09 22:33] LABS: Vancomycin, Trough 13.4 ug/mL
[2018-06-10] MEDS: Vancomycin HCl 1.25 GM in Sodium Chloride 0.9% 250 ML 250 ML IVPB SCH ×2 (00:04→23:18)
[2018-06-10] MEDS: Cefepime 2 GM in Sodium Chloride 0.9% 100 ML IVPB SCH ×2 (02:39→14:46)
[2018-06-10] MEDS: Levothyroxine Sodium 75 MCG TAB PO SCH (05:27)
[2018-06-10] MEDS: Atorvastatin Calcium 40 MG TAB PO SCH (07:54)
[2018-06-10] MEDS: Ezetimibe 10 MG TAB PO SCH (07:54)
[2018-06-10] MEDS: Digoxin 0.125 MG TAB PO SCH (07:54)
[2018-06-10] MEDS: Potassium Chloride 10 MEQ TAB PO SCH ×2 (07:55→17:16)
[2018-06-10] MEDS: Famotidine 20 MG TAB PO SCH ×2 (07:55→20:08)
[2018-06-10] MEDS: traMADol HCl 50 MG TAB PO SCH ×3 (07:55→20:07)
[2018-06-10] MEDS: FLUoxetine HCl 20 MG CAP PO SCH (07:56)
[2018-06-10] MEDS: Aspirin 81 mg Enteric Coated Tablet PO SCH (07:56)
[2018-06-10] MEDS: Enoxaparin Sodium 40 MG/0.4 ML SYRINGE SC SCH (07:57)
[2018-06-10] MEDS: Bacteriostatic Water 30 ML VIAL FS PRN (07:57)
[2018-06-10] MEDS: methylPREDNISolone Sod Succ 40 MG VIAL IVP SCH (07:57)
--- NOTE | 2018-06-10 09:30 | PRG ---
DATE OF SERVICE: 06/10/2018 SUBJECTIVE: The patient is very jovial this morning. She has no complaints about her breathing. OBJECTIVE: VITAL SIGNS: Temperature 97.3, pulse 98, respirations , saturating 93%, blood pressure 129/76. HEENT: Unremarkable. NECK: No JVD. CHEST: Clear without wheezing. CARDIAC: S1, S2. Regular. ABDOMEN: Soft. EXTREMITIES: No edema. LABORATORY DATA: White blood cell count 12.2, hematocrit 37.6, and platelet count 133. ASSESSMENT: 1. Chronic obstructive pulmonary disease exacerbation. 2. Status post endotracheal intubation with acute on chronic respiratory failure. 3. Advanced age and generalized failure to thrive. PLAN: 1. The patient definitely needs some step prior to going home, where that will be rehab or half-way or even potential for [facility] placement. Her family cannot take care of her at home. 2. I will go ahead and change her to oral prednisone. 3. Increase activity as tolerated with physical therapy. Job ID: [id number]
[2018-06-10] MEDS: predniSONE 20 MG TAB PO SCH (09:44)
--- NOTE | 2018-06-10 14:36 | PDOC.PN ---
- Subjective Encounter Start Date: 06/10/18 Encounter Start Time: 14:30 Subjective: f/u for COPD exacerbation, resp failure s/p mech ventilation. Feels better -: overall and some persistent coughing. Plan for SNF 06/11/18 - Objective Resuscitation Status - Order Detail: 06/09/18 14:32 Resuscitation Status Routine Resuscitation Status: DNAR: NO Resuscitation Discussed with: confirmed with pt MAR Reviewed: Yes Vital Signs & Weight: Vital Signs (12 hours) Temp Pulse Resp BP Pulse Ox 06/10/18 13:48 112 H 18 95 06/10/18 10:21 104 H 18 95 06/10/18 08:00 93 L 06/10/18 07:55 97.3 F L 98 18 129/76 93 L 06/10/18 07:54 98 06/10/18 07:11 98 16 98 06/10/18 02:49 90 18 98 Weight Admit Weight 144 lb 6.444 oz Weight 146 lb 1.6 oz Most Recent Monitor Data Heart Rate from ECG 106 NIBP 134/71 NIBP BP-Mean 92 Respiration from ECG 27 SpO2 97 I&O: 06/09/18 06/10/18 06/11/18 06:59 06:59 06:59 Intake Total 1524.5 1620 600 Output Total 1227 1362 Balance 297.5 258 600 Result Diagrams: 06/09/18 05:24 06/09/18 05:24 Additional Labs: Microbiology 06/06/18 00:50 Central Line - Right Internal Jugular vein Blood Culture - Final Coagulase Neg Staphylococcus 06/06/18 00:33 Urine monahan catheter Urine Culture - Final NO GROWTH AT 36 HOURS 06/07/18 03:52 Venous blood - Left Hand Blood Culture - Preliminary NO GROWTH AT 48 HOURS 06/07/18 03:40 Central Line - Right Internal Jugular vein Blood Culture - Preliminary NO GROWTH AT 48 HOURS 06/06/18 00:19 Central Line - Right Internal Jugular vein Blood Culture - Preliminary NO GROWTH AT 48 HOURS Laboratory Tests 06/07/18 06/07/18 06/08/18 03:50 03:50 05:11 BUN 38 H Creatinine 1.01 Phosphorus 4.9 H Magnesium 2.2 2.3 Digoxin 1.27 06/08/18 06/09/18 06/09/18 05:11 05:24 05:24 BUN Creatinine Phosphorus 4.1 4.0 Magnesium 2.8 H Digoxin Phys Exam - Physical Examination Constitutional: NAD alert, responsive HEENT: PERRLA, sclera anicteric, oral pharynx no lesions Neck: no nodes, no JVD, supple, full ROM diminished breath sounds bilat, occ wheeze distant heart sounds Cardiovascular: RRR, no significant murmur, no rub, gallop Gastrointestinal: soft, non-tender, no distention, positive bowel sounds Musculoskeletal: no edema, pulses present Neurological: normal sensation, moves all 4 limbs Psychiatric: A&O x 3 Skin: normal turgor, cap refill <2 seconds Dx/Plan (1) Acute on chronic respiratory failure with hypoxia and hypercapnia Code(s): J96.21 - ACUTE AND CHRONIC RESPIRATORY FAILURE WITH HYPOXIA; J96.22 - ACUTE AND CHRONIC RESPIRATORY FAILURE WITH HYPERCAPNIA Status: Acute Comment : secondary to COPD exacerbation, improved, s/p extubation. Transitioning to Prednisone, supplemental O2 (2) COPD exacerbation Code(s): J44.1 - CHRONIC OBSTRUCTIVE PULMONARY DISEASE W (ACUTE) EXACERBATION Status: Chronic Comment: continue oxygen, steroids and bronchodilators, ? pulmonary rehab (3) Chronic diastolic CHF (congestive heart failure) Code(s): I50.32 - CHRONIC DIASTOLIC (CONGESTIVE) HEART FAILURE Status: Chronic Comment: stable, resume home Lasix in 24h (4) HTN (hypertension) Code(s): I10 - ESSENTIAL (PRIMARY) HYPERTENSION Status: Chronic Qualifiers: Comment: controlled, resume home BP regimen and monitor clinical response (5) Hypothyroidism Code(s): E03.9 - HYPOTHYROIDISM, UNSPECIFIED Status: Chronic Comment: Continue Synthroid 75mcg daily - Plan continue antibiotics, PT/OT, social work coordinator, respiratory therapy, out of bed/ ambulate, DVT proph w/SCDs Stable currently -: Continue Cefepime/Vancomycin another 24h then d/c -: Starting Prednisone -: OOB with PT -: Plan for d/c to SNF 06/11/18 * .
[2018-06-11] MEDS: Cefepime 2 GM in Sodium Chloride 0.9% 100 ML IVPB SCH (02:27)
[2018-06-11] MEDS: Levothyroxine Sodium 75 MCG TAB PO SCH (06:19)
[2018-06-11 07:44] VITALS: TEMP 98.3
[2018-06-11] MEDS: Atorvastatin Calcium 40 MG TAB PO SCH (09:13)
[2018-06-11] MEDS: Digoxin 0.125 MG TAB PO SCH (09:14)
[2018-06-11] MEDS: predniSONE 20 MG TAB PO SCH (09:14)
[2018-06-11] MEDS: Famotidine 20 MG TAB PO SCH (09:15)
[2018-06-11] MEDS: FLUoxetine HCl 20 MG CAP PO SCH (09:15)
[2018-06-11] MEDS: Potassium Chloride 10 MEQ TAB PO SCH (09:15)
[2018-06-11] MEDS: Ezetimibe 10 MG TAB PO SCH (09:15)
[2018-06-11] MEDS: Aspirin 81 mg Enteric Coated Tablet PO SCH (09:16)
[2018-06-11] MEDS: Enoxaparin Sodium 40 MG/0.4 ML SYRINGE SC SCH (09:16)
[2018-06-11] MEDS: traMADol HCl 50 MG TAB PO SCH (09:17)
--- NOTE | 2018-06-11 09:54 | PRG ---
DATE OF SERVICE: 06/11/2018 SUBJECTIVE: Ms. Gr is doing well this morning. She had no acute complaints. The patient is feeling good. She is expecting transfer to the rehab today. PHYSICAL EXAMINATION: VITAL SIGNS: Temperature is 98.3, pulse 84, respirations 24, 96%. HEENT: Unremarkable. NECK: No adenopathy or JVD. CHEST: Clear. CARDIAC: S1 and S2 regular. ABDOMEN: Soft, nontender. EXTREMITIES: No edema. ASSESSMENT: Chronic obstructive pulmonary disease with exacerbation. PLAN: I will transition her over to oral antibiotics. She is clear to go to skilled at any time. Job ID: [id number]
--- NOTE | 2018-06-11 11:22 | DIS ---
DATE OF ADMISSION: 06/06/2018 DATE OF DISCHARGE: 06/11/2018 DISCHARGE DIAGNOSES: 1. Acute on chronic hypoxic hypercapnic respiratory failure, status post mechanical ventilation. 2. Acute chronic obstructive pulmonary disease exacerbation, improved. 3. Chronic diastolic heart failure with preserved ejection fraction of 60% to 65%. 4. Hypertension, stable. 5. Hypothyroidism. 6. Deconditioning. CONSULTATIONS: Michael Keyes MD, with Pulmonology Service. PERTINENT LAB AND X-RAY FINDINGS: Creatinine ranged between 0.90 to 1.33, estimated GFR ranged between 39 to 62, phosphorus ranged between 4.0 to 4.9, magnesium level ranged between 2.2 to 2.8. BNP 86. Troponin I ranged between 0.070 to 0.177. Urine drug screen dated 06/06/2018, negative. Plasma alcohol level less than 10. Digoxin level 1.27. CBC showed a white blood cell count ranging between 12.2 to 25.5. Blood cultures dated 06/06/2018 showed 1/2 positive for coagulase-negative Staphylococcus aureus showing skin contaminant. Urine culture dated 06/06/2018 showed no growth at 36 hours. Her blood cultures x2 dated 06/07/2018 showed no growth at 48 hours. Portable chest x-ray dated 06/05/2018, showed endotracheal tube in place. AICD leads appropriately positioned. Bibasilar atelectasis. Portable chest x-ray dated 06/08/2018, showed increased density in the inferior aspect of bilateral lung bases. HOSPITAL COURSE: The patient was initially admitted after presenting with increased shortness of breath in the context of known chronic obstructive pulmonary disease with multiple prior admissions including requirements for mechanical ventilation. The patient was placed on bronchodilator therapy, as well as IV Solu-Medrol and initiated on continuous positive airway pressure noninvasive mechanical ventilation. The patient continued to clinically decompensate, requiring mechanical ventilation and intubation. The patient was monitored by the Pulmonary Critical Care Service with adjustments to mechanical ventilation and continued on IV Solu-Medrol, bronchodilator therapy as well as cefepime and vancomycin. The patient weaned off mechanical ventilation and was continued on oxygen supplementation at 2 L/minute by nasal cannula. The patient was transitioned to the medical floor, stabilizing without complication. The patient was evaluated for ongoing skilled and supervised medical care due to multiple admissions for respiratory failure and deconditioning. I have examined the patient at the time of discharge and discussed followup instructions. The patient is overall clinically stable and ready for discharge to [facility] on 06/11/2018. DISCHARGE MEDICATIONS: 1. Lipitor 80 mg p.o. at bedtime. 2. Buspar 15 mg p.o. b.i.d. 3. Coreg 3.125 mg p.o. b.i.d. 4. Digoxin 0.125 mg p.o. daily. 5. Zetia 10 mg p.o. daily. 6. Prozac 20 mg p.o. daily. 7. Levothyroxine 75 mcg p.o. daily. 8. Klor-Con 10 mEq p.o. b.i.d. 9. Tramadol 50 mg p.o. t.i.d. p.r.n. 10. Enteric-coated aspirin 81 mg p.o. daily. 11. Keflex 500 mg p.o. b.i.d. x5 days. 12. Lasix 40 mg p.o. daily. 13. DuoNeb 3 mL nebulized q.4 hours p.r.n. 14. Claritin 10 mg p.o. daily. 15. Dulera 100/5 mcg one puff inhaled b.i.d. 16. Prednisone 40 mg p.o. daily x5 days. FOLLOWUP: The patient is to follow up with her primary care provider, Dr. Carlos Mayorga, after discharge from [facility]. CONDITION ON DISCHARGE: Fair. ACTIVITY: Ad donald, rolling walker with standby assistance. DIET: Regular. CODE STATUS: Do not attempt resuscitation. DISPOSITION: Discharged to [place], [place], 06/11/2018. TIME SPENT: Total time preparing and coordinating discharge, 33 minutes. Job ID: [id number]
--- NOTE | 2018-06-11 11:27 | PQF ---
CLINICAL DOCUMENTATION IMPROVEMENT CLARIFICATION FORM: ICD-10 Updated PLEASE DO AN ADDENDUM TO THE PROGRESS NOTE WITH ANY DOCUMENTATION UPDATES OR ADDITIONS AND CARRY THROUGH TO DC SUMMARY. THANK YOU. DATE: 06/11/2018 ATTN: Dr. Silverman Please exercise your independent, professional judgment in responding to the clarification form. Clinical indicators are provided on the bottom of this form for your review Please check appropriate box(s) to clarify if the following diagnosis has been ruled in or ruled out: Possible sepsis, unclear etiology. (H&P) [ ] Ruled in diagnosis [ ] Continue to treat [ ] Resolved [ x ] Ruled out diagnosis [ ] Cannot rule out diagnosis [ ] Other diagnosis [ ] Unable to determine In addition, please specify: Present on Admission (POA): [ ] Yes [x ] No [ ] Unable to determine For continuity of documentation, please document condition throughout progress notes and discharge summary. Thank You. CLINICAL INDICATORS - SIGNS / SYMPTOMS / LABS H&P 06/06: White count 25.5 Acute on chronic hypoxic respiratory failure, needing intubation Possible sepsis, unclear etiology. Acute Kidney injury. RISKS: H&P 06/06: 73 yr old with end-stage COPD, who is oxygen dependent. She had been in the hospital 3 times this month. TREATMENT: MAR: Order 06/07 Cefepime 2 gm IV Order 06/08: Vancomycin HCL 1.25 gm IV PN 06/10: Continue Cefepime/Vancomycin another 24 h then d/c Thank you, Jodie (This form is maintained as a part of the permanent medical record) 2015 [employer]. All Rights Reserved Jodie Ponce RN, BSN [email or web address] Office: [phone] [facility]
[2018-06-11 11:38] VITALS: BP 125/74
[2018-06-11] MEDS ORDERED: Cephalexin 250 MG CAP PO SCH (21:00)
== END 2018-06-11 11:39 | DRG 208 ==
LOC: ERS 23:08 → CCU 06-06 00:40 → T4-B 06-09 18:03
PROVIDERS: ADMIT Hospitalist; ATTEND Hospitalist
PROC: 0BH17EZ Insertion of Endotracheal Airway into Trachea, Via Natural or Artificial Opening (ICD-10-PCS; principal; 2018-06-06)
PROC: 5A1945Z Respiratory Ventilation, 24-96 Consecutive Hours (ICD-10-PCS; 2018-06-06)
DX: J96.21 Acute and chronic respiratory failure with hypoxia (principal); I21.A1 Myocardial infarction type 2; J44.1 Chronic obstructive pulmonary disease with (acute) exacerbation; I50.32 Chronic diastolic (congestive) heart failure; N17.9 Acute kidney failure, unspecified; I11.0 Hypertensive heart disease with heart failure; K21.9 Gastro-esophageal reflux disease without esophagitis; F41.9 Anxiety disorder, unspecified; E78.00 Pure hypercholesterolemia, unspecified; F32.9 Major depressive disorder, single episode, unspecified; J96.22 Acute and chronic respiratory failure with hypercapnia; E03.9 Hypothyroidism, unspecified; Z88.0 Allergy status to penicillin; Z88.2 Allergy status to sulfonamides; Z88.5 Allergy status to narcotic agent; Z79.82 Long term (current) use of aspirin; Z79.899 Other long term (current) drug therapy; Z87.891 Personal history of nicotine dependence
CPT/HCPCS: 36415; 71045; 80048; 80053; 80162; 80202; 80306; 80307; 81003; 82550; 82553; 82805; 83605; 83735; 83880; 84100; 84484; 85025; 85610; 85730; 87040; 87077; 87086; 87149; 93005; 94002; 94003; 94640; 94760; J0692; J1650; J2920; J3010; J3370; J7050; J7620; S0028

== ENCOUNTER 2021-02-10 21:33 | Inpatient (IN) | payer OTHER, MEDICARE ==
[2021-02-11 00:30] VITALS: BMI 23.5
[2021-02-11] MEDS ORDERED: traMADol HCl 50 MG TAB PO PRN (00:38)
[2021-02-11] MEDS ORDERED: Sodium Chloride 0.9% 1,000 ML IV SCH (00:45)
[2021-02-11] MEDS ORDERED: Ondansetron PF 4 MG/2 ML Vial IVP PRN (00:45)
[2021-02-11] MEDS ORDERED: Ondansetron ODT 4 MG TAB SL PRN (00:45)
[2021-02-11] MEDS ORDERED: Acetaminophen 650 MG Suppository PR PRN (01:13)
[2021-02-11] MEDS ORDERED: methylPREDNISolone Sod Succ/PF 125 MG/2 ML VIAL IVP SCH (01:30)
[2021-02-11 01:45] LABS: Actual Bicarbonate (HCO3a) 58.9 mEq/L (22-28); Base Excess (BEa) 25.7 mEq/L (-2.0 to +3.0); Calcium, Ionized (arterial) 1.16 mmol/L (1.12-1.30); Carboxyhemoglobin (COHb) 0.1 gm% (0.0-3.0); Hemoglobin (Hb) 11.9 g/dL (12.0-16.0); O2 Tension (PaO2), arterial 148.4 mmHg (> 70.0); Potassium - ABG Lab 4.69 mmol/L (3.70-5.30); pH, Arterial 7.27 (7.35-7.45)
[2021-02-11 01:46] LABS: CO2 Tension 131.9 mmHg (35.0-45.0)
[2021-02-11 01:47] LABS: Puncture Site RAA
[2021-02-11] MEDS ORDERED: VANCOMYCIN 1.25 GM/250 ML BAG 1.25 GM in Premix Bag 1 BAG IVPB SCH ×2 (01:56→02:45)
[2021-02-11] MEDS: Cefepime 1 GM in Sodium Chloride 0.9% 100 ML IVPB SCH (02:29)
[2021-02-11 03:02] LABS: Actual Bicarbonate (HCO3a) 50.7 mEq/L (22-28); Base Excess (BEa) 20.9 mEq/L (-2.0 to +3.0); Calcium, Ionized (arterial) 1.14 mmol/L (1.12-1.30); Carboxyhemoglobin (COHb) 0.3 gm% (0.0-3.0); Hemoglobin (Hb) 11.6 g/dL (12.0-16.0); O2 Tension (PaO2), arterial 68.6 mmHg (> 70.0); Potassium - ABG Lab 4.54 mmol/L (3.70-5.30); pH, Arterial 7.36 (7.35-7.45)
[2021-02-11 03:04] LABS: CO2 Tension 92.1 mmHg (35.0-45.0); Puncture Site RRA
[2021-02-11 03:05] LABS: ALV-art Gradient 244.075 mmHg (0-20)
[2021-02-11 03:29] LABS: #Eosinphils 0.1 thou/uL (0.0-0.7); #Lymphocytes 1.1 thou/uL (1.20-3.40); #Monocytes 1.1 thou/uL (0.11-0.59); #Neutrophils 13.7 thou/uL (1.40-6.50); %Basophils 0.1 % (0.0-1.0); %Eosinophils 0.6 % (0.0-10.0); %Lymphocytes 6.6 % (21.0-51.0); %Monocytes 6.9 % (0.0-10.0); %Neutrophils 85.9 % (42.0-75.0); Hemoglobin 11.1 g/dL (12.0-16.0); Mean Corpuscular HGB CONC 33.2 g/dL (32.0-36.0); Mean Corpuscular Volume 96.2 fL (78.0-98.0); Mean Platelet Volume 6.7 fL (7.4-10.4); Platelet Count 219 thou/uL (130-400); RBC Distribution Width 12.6 % (11.5-14.5); Red Blood Cell (RBC) Count 3.47 mill/uL (4.20-5.40); White Blood Cell (WBC) Count 15.9 thou/uL (4.8-10.8)
[2021-02-11] MEDS: Morphine 4 MG/ML VIAL SLOW IVP PRN ×2 (03:44→07:24)
[2021-02-11] MEDS: Lorazepam 2 MG/ML VIAL SLOW IVP SCH ×2 (03:46→07:25)
[2021-02-11 03:49] LABS: BUN (Urea Nitrogen) 64 mg/dL (9.8-20.1); Calc. Creatinine Clearance 30 mL/min (70-130); Calcium 9.4 mg/dL (7.8-10.44); Glucose 168 mg/dL (83-110)
[2021-02-11 04:00] LABS: Anion Gap 19 mmol/L (10-20); Carbon Dioxide 38 mmol/L (23-31); Chloride 82 mmol/L (98-107); Potassium 4.9 mmol/L (3.5-5.1); Sodium 134 mmol/L (136-145)
[2021-02-11] MEDS ORDERED: Naloxone HCl 0.4 mg/ml Vial ONE (07:22)
[2021-02-11] MEDS: Enoxaparin Sodium 30 MG/0.3 ML SYRINGE SC SCH (08:54)
[2021-02-11] MEDS ORDERED: cefTRIAXone\\ROCEPHIN 1 GM in Sodium Chloride 0.9% 100 ML IVPB SCH (21:00)
[2021-02-12] MEDS: Cefepime 1 GM in Sodium Chloride 0.9% 100 ML IVPB SCH (01:44)
[2021-02-12] MEDS: Morphine 4 MG/ML VIAL SLOW IVP PRN ×3 (02:51→08:12)
[2021-02-12] MEDS ORDERED: Vancomycin HCl 500 MG in Sodium Chloride 0.9% 100 ML IVPB SCH (03:00)
[2021-02-12] MEDS: Enoxaparin Sodium 30 MG/0.3 ML SYRINGE SC SCH (08:12)
[2021-02-12] MEDS: methylPREDNISolone Sod Succ 40 MG VIAL IVP SCH (08:12)
[2021-02-12] MEDS ORDERED: traMADol HCl 50 MG TAB PO PRN ×3 (21:40→21:56)
[2021-02-12] MEDS: Acetaminophen 325 MG TAB PO PRN (22:05)
[2021-02-12] MEDS: traMADol HCl 50 MG TAB PO PRN (22:21)
[2021-02-13] MEDS: Cefepime 1 GM in Sodium Chloride 0.9% 100 ML IVPB SCH (02:15)
[2021-02-13] MEDS: methylPREDNISolone Sod Succ 40 MG VIAL IVP SCH (09:54)
[2021-02-13] MEDS: Enoxaparin Sodium 30 MG/0.3 ML SYRINGE SC SCH (09:54)
[2021-02-13] MEDS ORDERED: Non-Formulary Item 1 EACH (Budesonide/Formoterol Fumarate [Budesonide-Formoterol 160-4.5] INH PRN (10:47)
[2021-02-13] MEDS ORDERED: guaiFENesin ER 600 MG TAB PO PRN (10:47)
[2021-02-13 11:03] LABS: #Eosinphils 0.2 thou/uL (0.0-0.7); #Lymphocytes 0.9 thou/uL (1.20-3.40); #Monocytes 1.2 thou/uL (0.11-0.59); #Neutrophils 10.9 thou/uL (1.40-6.50); %Basophils 0.3 % (0.0-1.0); %Eosinophils 1.2 % (0.0-10.0); %Monocytes 8.8 % (0.0-10.0); %Neutrophils 82.7 % (42.0-75.0); Hemoglobin 9.7 g/dL (12.0-16.0); Mean Corpuscular HGB CONC 31.3 g/dL (32.0-36.0); Mean Corpuscular Volume 95.7 fL (78.0-98.0); Mean Platelet Volume 7.6 fL (7.4-10.4); Platelet Count 145 thou/uL (130-400); RBC Distribution Width 12.8 % (11.5-14.5); Red Blood Cell (RBC) Count 3.23 mill/uL (4.20-5.40); White Blood Cell (WBC) Count 13.2 thou/uL (4.8-10.8)
[2021-02-13] MEDS ORDERED: Mometasone 200 MCG/Formoterol 5 MCG 120 PUFF INHALER INH PRN (11:03)
[2021-02-13 11:25] LABS: BUN (Urea Nitrogen) 69 mg/dL (9.8-20.1); Calc. Creatinine Clearance 57 mL/min (70-130); Calcium 9.9 mg/dL (7.8-10.44); Glucose 114 mg/dL (83-110); Magnesium 1.8 mg/dL (1.6-2.6)
[2021-02-13 11:37] LABS: Anion Gap 12 mmol/L (10-20); Carbon Dioxide 38 mmol/L (23-31); Chloride 92 mmol/L (98-107); Potassium 3.7 mmol/L (3.5-5.1); Sodium 138 mmol/L (136-145)
[2021-02-13 11:45] LABS: Phosphorus 1.3 mg/dL (2.3-4.7)
[2021-02-13] MEDS: traMADol HCl 50 MG TAB PO PRN ×2 (12:22→23:27)
[2021-02-13] MEDS ORDERED: Magnesium 2 GM/50 ML 2 GM in Premix Bag 1 BAG IVPB SCH (12:30)
[2021-02-13] MEDS ORDERED: Electrolyte Replacement Protocol FS PRN (12:30)
[2021-02-13] MEDS: PHOS-NAK 1 PKT PACK PO SCH ×4 (12:40→23:27)
[2021-02-13] MEDS ORDERED: Potassium Phosphate 30 MMOL in Sodium Chloride 0.9% 500 ML IVPB SCH (15:30)
[2021-02-13 16:05] VITALS: BP 123/70
[2021-02-13] MEDS: Carvedilol 3.125 MG TAB PO SCH (16:30)
[2021-02-13 16:54] LABS: Actual Bicarbonate (HCO3a) 46.8 mEq/L (22-28); Base Excess (BEa) 19.1 mEq/L (-2.0 to +3.0); CO2 Tension 75.6 mmHg (35.0-45.0); Calcium, Ionized (arterial) 1.26 mmol/L (1.12-1.30); Carboxyhemoglobin (COHb) 0.3 gm% (0.0-3.0); Hemoglobin (Hb) 10.1 g/dL (12.0-16.0); O2 Tension (PaO2), arterial 69.3 mmHg (> 70.0); Potassium - ABG Lab 3.56 mmol/L (3.70-5.30); pH, Arterial 7.41 (7.35-7.45)
[2021-02-13 16:55] LABS: Puncture Site RRAP
[2021-02-13] MEDS: Furosemide 80 MG TAB PO SCH (20:37)
[2021-02-13] MEDS: Acetaminophen 325 MG TAB PO PRN (20:37)
[2021-02-13] MEDS ORDERED: Atorvastatin Calcium 40 MG TAB PO SCH (21:00)
[2021-02-13] MEDS ORDERED: Non-Formulary Item 1 EACH (Atorvastatin Calcium [Atorvastatin Calcium] 80 MG Tablet) PO SCH (21:00)
[2021-02-13] MEDS ORDERED: busPIRone HCl 5 MG TAB PO SCH (21:00)
[2021-02-13] MEDS ORDERED: Non-Formulary Item 1 EACH (Buspirone Hcl [Buspirone Hcl] 15 MG Tablet) PO SCH (21:00)
[2021-02-13] MEDS ORDERED: Ondansetron PF 4 MG/2 ML Vial IVP PRN (21:46)
[2021-02-14] MEDS: Cefepime 1 GM in Sodium Chloride 0.9% 100 ML IVPB SCH (02:39)
[2021-02-14] MEDS: Acetaminophen 325 MG TAB PO PRN ×2 (02:44→08:11)
[2021-02-14] MEDS ORDERED: predniSONE 20 MG TAB PO SCH (08:00)
[2021-02-14] MEDS: Carvedilol 3.125 MG TAB PO SCH ×2 (08:08→18:26)
[2021-02-14] MEDS: Enoxaparin Sodium 30 MG/0.3 ML SYRINGE SC SCH (08:09)
[2021-02-14] MEDS: Furosemide 80 MG TAB PO SCH (08:10)
[2021-02-14] MEDS ORDERED: Digoxin 0.125 MG TAB PO SCH (09:00)
[2021-02-14] MEDS ORDERED: FLUoxetine HCl 20 MG CAP PO SCH (09:00)
[2021-02-14] MEDS ORDERED: Aspirin 81 mg Enteric Coated Tablet PO SCH (09:00)
[2021-02-14] MEDS ORDERED: Metolazone 2.5 MG TAB PO SCH (09:00)
[2021-02-14] MEDS ORDERED: Ezetimibe 10 MG TAB PO SCH (09:00)
[2021-02-14] MEDS: traMADol HCl 50 MG TAB PO PRN (11:12)
[2021-02-14] MEDS ORDERED: Lorazepam 2 MG/ML VIAL SLOW IVP PRN (13:49)
[2021-02-14 17:34] VITALS: TEMP 96
[2021-02-15] MEDS ORDERED: predniSONE 20 MG TAB PO SCH (08:00)
[2021-02-15] MEDS ORDERED: Enoxaparin Sodium 40 MG/0.4 ML SYRINGE SC SCH (09:00)
== END 2021-02-14 19:04 | disposition swing bed (61) | DRG 963 ==
LOC: SURG B 21:33 → IMCU/EMU 02-11 01:58
PROVIDERS: ADMIT Student in an Organized Health Care Education/Training Program; ATTEND Internal Medicine
PROC: 5A09357 Assistance with Respiratory Ventilation, Less than 24 Consecutive Hours, Continuous Positive Airway Pressure (ICD-10-PCS; principal; 2021-02-12)
PROC: 5A09357 Assistance with Respiratory Ventilation, Less than 24 Consecutive Hours, Continuous Positive Airway Pressure (ICD-10-PCS; 2021-02-13)
DX: S32.492A Other specified fracture of left acetabulum, initial encounter for closed fracture (principal); S72.092A Other fracture of head and neck of left femur, initial encounter for closed fracture; A41.9 Sepsis, unspecified organism; G93.41 Metabolic encephalopathy; J96.21 Acute and chronic respiratory failure with hypoxia; J96.22 Acute and chronic respiratory failure with hypercapnia; J18.9 Pneumonia, unspecified organism; J44.1 Chronic obstructive pulmonary disease with (acute) exacerbation; N39.0 Urinary tract infection, site not specified; N17.9 Acute kidney failure, unspecified; I42.9 Cardiomyopathy, unspecified; I50.32 Chronic diastolic (congestive) heart failure; J44.0 Chronic obstructive pulmonary disease with (acute) lower respiratory infection; I13.0 Hypertensive heart and chronic kidney disease with heart failure and stage 1 through stage 4 chronic kidney disease, or unspecified chronic kidney disease; E03.9 Hypothyroidism, unspecified; E78.5 Hyperlipidemia, unspecified; W19.XXXA Unspecified fall, initial encounter; F17.210 Nicotine dependence, cigarettes, uncomplicated; N18.9 Chronic kidney disease, unspecified; T14.8XXA Other injury of unspecified body region, initial encounter; Z66 Do not resuscitate; F32.A Depression, unspecified; K21.9 Gastro-esophageal reflux disease without esophagitis; Z99.81 Dependence on supplemental oxygen; Y92.89 Other specified places as the place of occurrence of the external cause; Z88.2 Allergy status to sulfonamides; Z88.0 Allergy status to penicillin; Z88.1 Allergy status to other antibiotic agents; Z88.5 Allergy status to narcotic agent; Z79.82 Long term (current) use of aspirin; Z79.899 Other long term (current) drug therapy; Z79.01 Long term (current) use of anticoagulants; Z95.810 Presence of automatic (implantable) cardiac defibrillator; Z51.5 Encounter for palliative care; Z90.49 Acquired absence of other specified parts of digestive tract; Z98.51 Tubal ligation status
CPT/HCPCS: 36415; 36600; 71045; 80048; 82805; 83735; 84100; 85025; 87040; 94640; 94660; J0692; J1650; J2060; J2270; J2310; J2405; J2920; J2930; J3370; J3475; J3490; J7050; J7512; J7620

== ENCOUNTER 2021-03-18 18:41 | Inpatient (IN) | payer MEDICARE ==
[~2021-03-18 18:41] MED LIST: Iopamidol-370 76% 500 ML 1 ML ONE
[2021-03-18 19:36] LABS: #Eosinphils 0.1 thou/uL (0.0-0.7); #Lymphocytes 1.2 thou/uL (1.20-3.40); #Monocytes 1.6 thou/uL (0.11-0.59); %Basophils 0.1 % (0.0-1.0); %Eosinophils 0.3 % (0.0-10.0); %Lymphocytes 7.7 % (21.0-51.0); %Monocytes 9.9 % (0.0-10.0); Hemoglobin 9.8 g/dL (12.0-16.0); Mean Corpuscular HGB CONC 31.2 g/dL (32.0-36.0); Mean Corpuscular Volume 96.3 fL (78.0-98.0); Mean Platelet Volume 6.5 fL (7.4-10.4); Platelet Count 444 thou/uL (130-400); RBC Distribution Width 15.6 % (11.5-14.5); Red Blood Cell (RBC) Count 3.26 mill/uL (4.20-5.40); White Blood Cell (WBC) Count 15.8 thou/uL (4.8-10.8)
[2021-03-18 20:03] LABS: ALT (SGPT) 16 U/L (8-55); AST (SGOT) 17 U/L (5-34); Alkaline Phosphatase 153 U/L (40-110); BUN (Urea Nitrogen) 33 mg/dL (9.8-20.1); Bilirubin, Total 0.4 mg/dL (0.2-1.2); Calc. Creatinine Clearance 0 mL/min (70-130); Calcium 9.9 mg/dL (7.8-10.44); Globulin 3.8 g/dL (2.4-3.5); Glucose 116 mg/dL (83-110); Lipase 19 U/L (8-78); Magnesium 1.8 mg/dL (1.6-2.6); Protein, Total 6.8 g/dL (5.8-8.1)
[2021-03-18 20:12] LABS: Anion Gap 18 mmol/L (10-20); Carbon Dioxide 40 mmol/L (23-31); Chloride 84 mmol/L (98-107); Potassium 5.1 mmol/L (3.5-5.1); Sodium 137 mmol/L (136-145)
[2021-03-18 20:17] LABS: CKMB 1.2 ng/mL (0-6.6)
[2021-03-18] MEDS ORDERED: Magnesium 2 GM/50 ML BAG (IN WATER) ONE (20:34)
[2021-03-18] MEDS ORDERED: cefTRIAXone\\ROCEPHIN 1 GM VIAL ONE (20:34)
[2021-03-18] MEDS ORDERED: methylPREDNISolone Sod Succ/PF 125 MG/2 ML VIAL ONE (20:34)
[2021-03-18] MEDS ORDERED: Guaifenesin DM 100-10/5 ML UDCUP PO PRN (21:06)
[2021-03-18 21:10] LABS: Actual Bicarbonate (HCO3a) 54.2 mEq/L (22-28); Analyzer IN Cardio ER; Base Excess (BEa) 22.9 mEq/L (-2.0 to +3.0); Carboxyhemoglobin (COHb) 0.3 gm% (0.0-3.0); Hemoglobin (Hb) 10.2 g/dL (12.0-16.0); O2 Tension (PaO2), arterial 107.2 mmHg (> 70.0); Potassium - ABG Lab 5.01 mmol/L (3.70-5.30); pH, Arterial 7.28 (7.35-7.45)
[2021-03-18 21:12] LABS: SARS-CoV-2 NAA Rapid Test Not Detected (NotDetected)
[2021-03-18 21:15] LABS: CO2 Tension 118.2 mmHg (35.0-45.0); Puncture Site RRA
[2021-03-18 21:41] LABS: Digoxin 1.31 ng/mL (0.8-2.0)
[2021-03-18] MEDS ORDERED: Enoxaparin Sodium 60 MG/0.6 ML SYRINGE ONE (22:00)
[2021-03-18 23:02] LABS: Troponin I 0.211 ng/mL (< 0.028)
[2021-03-18] MEDS: cefTRIAXone\\ROCEPHIN 2 GM in Sodium Chloride 0.9% 100 ML IVPB SCH (23:14)
[2021-03-19 00:29] LABS: Base Excess (BEa) 23.3 mEq/L (-2.0 to +3.0); Calcium, Ionized (arterial) 1.25 mmol/L (1.12-1.30); Carboxyhemoglobin (COHb) 1.2 gm% (0.0-3.0); Hemoglobin (Hb) 10.4 g/dL (12.0-16.0); Potassium - ABG Lab 5.52 mmol/L (3.70-5.30)
[2021-03-19 00:30] LABS: pH, Arterial 7.23 (7.35-7.45)
[2021-03-19 00:31] LABS: CO2 Tension 137.4 mmHg (35.0-45.0); Puncture Site RRA
[2021-03-19] MEDS ORDERED: Furosemide 40 MG/4 ML VIAL SLOW IVP SCH ×3 (00:45→10:00)
[2021-03-19] MEDS: methylPREDNISolone Sod Succ 40 MG VIAL IVP SCH ×5 (00:46→23:21)
[2021-03-19 02:23] LABS: Troponin I 0.288 ng/mL (< 0.028)
[2021-03-19 03:35] LABS: Hemoglobin 9.6 g/dL (12.0-16.0); Mean Corpuscular HGB CONC 31.7 g/dL (32.0-36.0); Mean Corpuscular Hemoglobin 30.3 pg (27.0-31.0); Mean Corpuscular Volume 95.6 fL (78.0-98.0); Mean Platelet Volume 6.6 fL (7.4-10.4); Platelet Count 350 thou/uL (130-400); RBC Distribution Width 15.4 % (11.5-14.5); Red Blood Cell (RBC) Count 3.16 mill/uL (4.20-5.40); White Blood Cell (WBC) Count 9.7 thou/uL (4.8-10.8)
[2021-03-19 03:54] LABS: ALT (SGPT) 16 U/L (8-55); AST (SGOT) 16 U/L (5-34); Albumin 2.8 g/dL (3.4-4.8); Alkaline Phosphatase 152 U/L (40-110); BUN (Urea Nitrogen) 37 mg/dL (9.8-20.1); Bilirubin, Total 0.3 mg/dL (0.2-1.2); Calc. Creatinine Clearance 45 mL/min (70-130); Calcium 9.8 mg/dL (7.8-10.44); Globulin 3.8 g/dL (2.4-3.5); Glucose 135 mg/dL (83-110); Protein, Total 6.6 g/dL (5.8-8.1)
[2021-03-19 03:56] LABS: Troponin I 0.265 ng/mL (< 0.028)
[2021-03-19 04:02] LABS: Anion Gap 18 mmol/L (10-20); Carbon Dioxide 39 mmol/L (23-31); Chloride 86 mmol/L (98-107); Potassium 5.7 mmol/L (3.5-5.1); Sodium 137 mmol/L (136-145)
[2021-03-19 04:29] LABS: Band 2 % (5-11); Hypochromia SLIGHT = 6-15 cells (100X) (0-5/hpf); Lymphocytes 2 % (21-51); MDiff Complete? YES; Myelocyte 1 % (0-0); Neutrophil 94 % (42-75); Platelet Morphology Comment Appears Adequate; Polychromasia MODERATE = 3-4 cells (100X) (0-2/hpf); Stomatocytes MODERATE= 6-15 cells (100X) (0-1/hpf)
[2021-03-19] MEDS ORDERED: Dextrose 50% Abboject 50 ML SYRINGE SLOW IVP PRN (05:57)
[2021-03-19] MEDS: Levothyroxine Sodium 75 MCG TAB PO SCH (06:11)
[2021-03-19] MEDS ORDERED: Insulin Regular 300 UNITS/3 ML VIAL IVP SCH (06:15)
[2021-03-19] MEDS ORDERED: Calcium Gluc 4.6 MEQ/10 ML (100 MG/ML) SLOW IVP SCH (06:15)
[2021-03-19] MEDS ORDERED: Non-Formulary Item 1 EACH (Budesonide/Formoterol Fumarate [Budesonide-Formoterol 160-4.5] INH PRN (07:31)
[2021-03-19] MEDS ORDERED: Mometasone 200 MCG/Formoterol 5 MCG 120 PUFF INHALER INH PRN (07:41)
[2021-03-19] MEDS ORDERED: Furosemide 40 MG TAB PO SCH (09:00)
[2021-03-19] MEDS ORDERED: Enoxaparin Sodium 60 MG/0.6 ML SYRINGE SC SCH (09:00)
[2021-03-19] MEDS: Digoxin 0.125 MG TAB PO SCH (11:07)
[2021-03-19] MEDS: Aspirin 81 mg Enteric Coated Tablet PO SCH (11:07)
[2021-03-19] MEDS: Enoxaparin Sodium 40 MG/0.4 ML SYRINGE SC SCH (11:08)
[2021-03-19] MEDS: Famotidine/PF 20 mg/2ml Vial SLOW IVP SCH (11:08)
[2021-03-19] MEDS: Albumin 25% 25 GM/100 ML BOT IVPB SCH (11:48)
[2021-03-19 14:47] LABS: BUN (Urea Nitrogen) 44 mg/dL (9.8-20.1); Calc. Creatinine Clearance 42 mL/min (70-130); Calcium 10.4 mg/dL (7.8-10.44); Glucose 153 mg/dL (83-110)
[2021-03-19 14:59] LABS: Chloride 86 mmol/L (98-107); Potassium 4.3 mmol/L (3.5-5.1); Sodium 141 mmol/L (136-145)
[2021-03-19 15:02] LABS: Anion Gap 20 mmol/L (10-20); Carbon Dioxide 39 mmol/L (23-31)
[2021-03-19] MEDS: cefTRIAXone\\ROCEPHIN 2 GM in Sodium Chloride 0.9% 100 ML IVPB SCH (21:31)
[2021-03-20] MEDS: methylPREDNISolone Sod Succ 40 MG VIAL IVP SCH ×4 (05:29→23:02)
[2021-03-20] MEDS: Levothyroxine Sodium 75 MCG TAB PO SCH (05:29)
[2021-03-20 09:50] LABS: BUN (Urea Nitrogen) 47 mg/dL (9.8-20.1); Calc. Creatinine Clearance 42 mL/min (70-130); Calcium 10.2 mg/dL (7.8-10.44); Glucose 148 mg/dL (83-110)
[2021-03-20 09:57] LABS: Chloride 84 mmol/L (98-107); Potassium 3.5 mmol/L (3.5-5.1); Sodium 140 mmol/L (136-145)
[2021-03-20] MEDS: Enoxaparin Sodium 40 MG/0.4 ML SYRINGE SC SCH (10:00)
[2021-03-20] MEDS: Aspirin 81 mg Enteric Coated Tablet PO SCH (10:00)
[2021-03-20] MEDS: Digoxin 0.125 MG TAB PO SCH (10:00)
[2021-03-20] MEDS: Famotidine/PF 20 mg/2ml Vial SLOW IVP SCH (10:00)
[2021-03-20] MEDS: Acetaminophen 325 MG TAB PO PRN ×2 (10:01→20:21)
[2021-03-20] MEDS: Albumin 25% 25 GM/100 ML BOT IVPB SCH (10:02)
[2021-03-20 10:19] LABS: Carbon Dioxide 47 mmol/L (23-31)
[2021-03-20 10:21] LABS: Anion Gap 13 mmol/L (10-20)
[2021-03-20] MEDS: cefTRIAXone\\ROCEPHIN 2 GM in Sodium Chloride 0.9% 100 ML IVPB SCH (20:59)
[2021-03-21] MEDS: Levothyroxine Sodium 75 MCG TAB PO SCH (05:31)
[2021-03-21] MEDS: methylPREDNISolone Sod Succ 40 MG VIAL IVP SCH ×3 (05:31→17:26)
[2021-03-21] MEDS: Aspirin 81 mg Enteric Coated Tablet PO SCH (09:06)
[2021-03-21] MEDS: Acetaminophen 325 MG TAB PO PRN ×2 (09:06→17:25)
[2021-03-21] MEDS: Digoxin 0.125 MG TAB PO SCH (09:07)
[2021-03-21] MEDS: Enoxaparin Sodium 40 MG/0.4 ML SYRINGE SC SCH (09:07)
[2021-03-21] MEDS: Famotidine/PF 20 mg/2ml Vial SLOW IVP SCH (09:09)
[2021-03-21] MEDS ORDERED: diphenhydrAMINE 25 MG CAP PO PRN (16:19)
[2021-03-21] MEDS ORDERED: diphenhydrAMINE 50 MG/ML VIAL IVP PRN (16:21)
[2021-03-21] MEDS: Mometasone 200 MCG/Formoterol 5 MCG 120 PUFF INHALER INH SCH (18:52)
[2021-03-21] MEDS: cefTRIAXone\\ROCEPHIN 2 GM in Sodium Chloride 0.9% 100 ML IVPB SCH (21:13)
[2021-03-21] MEDS: traMADol HCl 50 MG TAB PO PRN (21:14)
[2021-03-21] MEDS: Loratadine 10 MG TAB PO SCH (21:36)
[2021-03-22] MEDS: methylPREDNISolone Sod Succ 40 MG VIAL IVP SCH ×4 (00:30→18:24)
[2021-03-22] MEDS: Levothyroxine Sodium 75 MCG TAB PO SCH (05:09)
[2021-03-22] MEDS: Mometasone 200 MCG/Formoterol 5 MCG 120 PUFF INHALER INH SCH ×2 (07:46→18:56)
[2021-03-22] MEDS ORDERED: FLU VACC QS2021-22(65YR UP)/PF 240 MCG/0.7 ML SYRINGE IM ONE (09:00)
[2021-03-22] MEDS ORDERED: Loratadine 10 MG TAB PO SCH (09:00)
[2021-03-22] MEDS: Aspirin 81 mg Enteric Coated Tablet PO SCH (10:23)
[2021-03-22] MEDS: Loratadine 10 MG TAB PO SCH (10:24)
[2021-03-22] MEDS: Famotidine/PF 20 mg/2ml Vial SLOW IVP SCH (10:24)
[2021-03-22] MEDS: traMADol HCl 50 MG TAB PO PRN ×2 (10:24→21:28)
[2021-03-22] MEDS: Digoxin 0.125 MG TAB PO SCH (10:24)
[2021-03-22] MEDS: Enoxaparin Sodium 40 MG/0.4 ML SYRINGE SC SCH (10:24)
[2021-03-22 16:29] LABS: #Lymphocytes 0.4 thou/uL (1.20-3.40); #Monocytes 0.7 thou/uL (0.11-0.59); #Neutrophils 6.8 thou/uL (1.40-6.50); %Eosinophils 0.4 % (0.0-10.0); %Lymphocytes 5.3 % (21.0-51.0); %Monocytes 8.9 % (0.0-10.0); %Neutrophils 85.4 % (42.0-75.0); Hemoglobin 9.2 g/dL (12.0-16.0); Mean Corpuscular HGB CONC 31.2 g/dL (32.0-36.0); Mean Corpuscular Hemoglobin 28.9 pg (27.0-31.0); Mean Corpuscular Volume 92.7 fL (78.0-98.0); Mean Platelet Volume 6.9 fL (7.4-10.4); Platelet Count 350 thou/uL (130-400); RBC Distribution Width 15.9 % (11.5-14.5); Red Blood Cell (RBC) Count 3.19 mill/uL (4.20-5.40); White Blood Cell (WBC) Count 7.9 thou/uL (4.8-10.8)
[2021-03-22 16:46] LABS: BUN (Urea Nitrogen) 34 mg/dL (9.8-20.1); Calc. Creatinine Clearance 49 mL/min (70-130); Calcium 10.4 mg/dL (7.8-10.44); Glucose 165 mg/dL (83-110)
[2021-03-22 16:59] LABS: Anion Gap 18 mmol/L (10-20); Carbon Dioxide 40 mmol/L (23-31); Chloride 87 mmol/L (98-107); Potassium 3.4 mmol/L (3.5-5.1); Sodium 142 mmol/L (136-145)
[2021-03-22] MEDS: cefTRIAXone\\ROCEPHIN 2 GM in Sodium Chloride 0.9% 100 ML IVPB SCH (21:28)
[2021-03-23] MEDS: methylPREDNISolone Sod Succ 40 MG VIAL IVP SCH ×5 (00:04→23:30)
[2021-03-23] MEDS: Levothyroxine Sodium 75 MCG TAB PO SCH (05:34)
[2021-03-23] MEDS: Mometasone 200 MCG/Formoterol 5 MCG 120 PUFF INHALER INH SCH ×2 (08:03→18:45)
[2021-03-23] MEDS: traMADol HCl 50 MG TAB PO PRN ×2 (08:35→20:50)
[2021-03-23] MEDS: Digoxin 0.125 MG TAB PO SCH (08:37)
[2021-03-23] MEDS: Aspirin 81 mg Enteric Coated Tablet PO SCH (08:37)
[2021-03-23] MEDS: Enoxaparin Sodium 40 MG/0.4 ML SYRINGE SC SCH (08:37)
[2021-03-23] MEDS: Loratadine 10 MG TAB PO SCH ×2 (08:37→20:48)
[2021-03-23] MEDS: Famotidine/PF 20 mg/2ml Vial SLOW IVP SCH (08:38)
[2021-03-23] MEDS: Calcium Carbonate 500 MG ChewTAB PO PRN ×2 (08:38→15:30)
[2021-03-23] MEDS ORDERED: Simethicone Chewable 80 MG TAB PO PRN (10:55)
[2021-03-23] MEDS: Acetaminophen 325 MG TAB PO PRN (15:30)
[2021-03-23] MEDS: Famotidine 20 MG TAB PO SCH (20:48)
[2021-03-23] MEDS: cefTRIAXone\\ROCEPHIN 2 GM in Sodium Chloride 0.9% 100 ML IVPB SCH (20:48)
[2021-03-24] MEDS: methylPREDNISolone Sod Succ 40 MG VIAL IVP SCH ×4 (06:35→23:30)
[2021-03-24] MEDS: Levothyroxine Sodium 75 MCG TAB PO SCH (06:35)
[2021-03-24] MEDS: Mometasone 200 MCG/Formoterol 5 MCG 120 PUFF INHALER INH SCH ×2 (07:15→19:01)
[2021-03-24] MEDS: Famotidine 20 MG TAB PO SCH ×2 (08:31→21:19)
[2021-03-24] MEDS: Aspirin 81 mg Enteric Coated Tablet PO SCH (08:31)
[2021-03-24] MEDS: Digoxin 0.125 MG TAB PO SCH (08:31)
[2021-03-24] MEDS: Enoxaparin Sodium 40 MG/0.4 ML SYRINGE SC SCH (08:32)
[2021-03-24] MEDS: Calcium Carbonate 500 MG ChewTAB PO PRN (12:11)
[2021-03-24] MEDS: traMADol HCl 50 MG TAB PO PRN ×2 (14:42→21:20)
[2021-03-24] MEDS: Loratadine 10 MG TAB PO SCH (21:19)
[2021-03-24] MEDS: cefTRIAXone\\ROCEPHIN 2 GM in Sodium Chloride 0.9% 100 ML IVPB SCH (21:20)
[2021-03-25] MEDS: methylPREDNISolone Sod Succ 40 MG VIAL IVP SCH (05:24)
[2021-03-25] MEDS: Levothyroxine Sodium 75 MCG TAB PO SCH (05:24)
[2021-03-25] MEDS: Mometasone 200 MCG/Formoterol 5 MCG 120 PUFF INHALER INH SCH ×2 (08:25→19:47)
[2021-03-25] MEDS: Aspirin 81 mg Enteric Coated Tablet PO SCH (08:52)
[2021-03-25] MEDS: Enoxaparin Sodium 40 MG/0.4 ML SYRINGE SC SCH (08:52)
[2021-03-25] MEDS: Digoxin 0.125 MG TAB PO SCH (08:52)
[2021-03-25] MEDS: Famotidine 20 MG TAB PO SCH ×2 (08:52→20:28)
[2021-03-25] MEDS ORDERED: Loratadine 10 MG TAB PO SCH (10:45)
[2021-03-25] MEDS: predniSONE 20 MG TAB PO SCH (12:52)
[2021-03-25] MEDS: Loratadine 10 MG TAB PO SCH (20:28)
[2021-03-25] MEDS: traMADol HCl 50 MG TAB PO PRN (20:28)
[2021-03-25] MEDS: Calcium Carbonate 500 MG ChewTAB PO PRN (20:28)
[2021-03-26] MEDS: Levothyroxine Sodium 75 MCG TAB PO SCH (05:25)
[2021-03-26] MEDS: Mometasone 200 MCG/Formoterol 5 MCG 120 PUFF INHALER INH SCH ×2 (08:07→19:31)
[2021-03-26 08:17] LABS: #Eosinphils 0.1 thou/uL (0.0-0.7); #Lymphocytes 0.8 thou/uL (1.20-3.40); #Monocytes 1.2 thou/uL (0.11-0.59); #Neutrophils 12.7 thou/uL (1.40-6.50); %Basophils 0.1 % (0.0-1.0); %Eosinophils 0.7 % (0.0-10.0); %Lymphocytes 5.4 % (21.0-51.0); %Monocytes 8.1 % (0.0-10.0); %Neutrophils 85.7 % (42.0-75.0); Hemoglobin 10.5 g/dL (12.0-16.0); Mean Corpuscular HGB CONC 30.2 g/dL (32.0-36.0); Mean Corpuscular Hemoglobin 28.5 pg (27.0-31.0); Mean Corpuscular Volume 94.2 fL (78.0-98.0); Mean Platelet Volume 6.9 fL (7.4-10.4); Platelet Count 469 thou/uL (130-400); White Blood Cell (WBC) Count 14.8 thou/uL (4.8-10.8)
[2021-03-26 08:23] LABS: BUN (Urea Nitrogen) 29 mg/dL (9.8-20.1); Calc. Creatinine Clearance 52 mL/min (70-130); Calcium 9.5 mg/dL (7.8-10.44); Glucose 107 mg/dL (83-110)
[2021-03-26 08:32] LABS: Anion Gap 16 mmol/L (10-20); Carbon Dioxide 38 mmol/L (23-31); Chloride 90 mmol/L (98-107); Potassium 3.7 mmol/L (3.5-5.1); Sodium 140 mmol/L (136-145)
[2021-03-26] MEDS: Enoxaparin Sodium 40 MG/0.4 ML SYRINGE SC SCH (09:13)
[2021-03-26] MEDS: Aspirin 81 mg Enteric Coated Tablet PO SCH (09:14)
[2021-03-26] MEDS: Famotidine 20 MG TAB PO SCH ×2 (09:14→20:05)
[2021-03-26] MEDS: Digoxin 0.125 MG TAB PO SCH (09:14)
[2021-03-26] MEDS: Calcium Carbonate 500 MG ChewTAB PO PRN ×2 (11:01→20:07)
[2021-03-26] MEDS: predniSONE 20 MG TAB PO SCH (11:01)
[2021-03-26] MEDS: Loratadine 10 MG TAB PO SCH (20:05)
[2021-03-26] MEDS: traMADol HCl 50 MG TAB PO PRN (20:05)
[2021-03-26] MEDS: Ondansetron PF 4 MG/2 ML Vial IVP PRN (20:06)
[2021-03-26] MEDS ORDERED: Polyethylene Glycol 3350 17 GM Packet PO SCH (20:15)
[2021-03-26] MEDS: Lorazepam 2 MG/ML VIAL SLOW IVP PRN (20:16)
[2021-03-27] MEDS: Levothyroxine Sodium 75 MCG TAB PO SCH (06:35)
[2021-03-27] MEDS: Mometasone 200 MCG/Formoterol 5 MCG 120 PUFF INHALER INH SCH ×2 (07:32→19:01)
[2021-03-27] MEDS: Polyethylene Glycol 3350 17 GM Packet PO SCH (08:47)
[2021-03-27] MEDS: Enoxaparin Sodium 40 MG/0.4 ML SYRINGE SC SCH (08:47)
[2021-03-27] MEDS: Aspirin 81 mg Enteric Coated Tablet PO SCH (08:47)
[2021-03-27] MEDS: Digoxin 0.125 MG TAB PO SCH (08:48)
[2021-03-27] MEDS: Famotidine 20 MG TAB PO SCH ×2 (08:48→20:03)
[2021-03-27 10:24] LABS: SARS-CoV-2 PCR by NAA Not Detected (NotDetected)
[2021-03-27] MEDS: predniSONE 20 MG TAB PO SCH (11:20)
[2021-03-27] MEDS: traMADol HCl 50 MG TAB PO PRN (19:59)
[2021-03-27] MEDS: Calcium Carbonate 500 MG ChewTAB PO PRN (19:59)
[2021-03-27] MEDS: Loratadine 10 MG TAB PO SCH (20:00)
[2021-03-27] MEDS: Ondansetron PF 4 MG/2 ML Vial IVP PRN (20:00)
[2021-03-28] MEDS: Levothyroxine Sodium 75 MCG TAB PO SCH (05:40)
[2021-03-28] MEDS: Mometasone 200 MCG/Formoterol 5 MCG 120 PUFF INHALER INH SCH ×2 (07:33→19:11)
[2021-03-28] MEDS: Aspirin 81 mg Enteric Coated Tablet PO SCH (10:09)
[2021-03-28] MEDS: Digoxin 0.125 MG TAB PO SCH (10:09)
[2021-03-28] MEDS: predniSONE 20 MG TAB PO SCH (10:10)
[2021-03-28] MEDS: Famotidine 20 MG TAB PO SCH ×2 (10:10→19:59)
[2021-03-28] MEDS: Enoxaparin Sodium 40 MG/0.4 ML SYRINGE SC SCH (10:10)
[2021-03-28] MEDS: Polyethylene Glycol 3350 17 GM Packet PO SCH (10:11)
[2021-03-28 13:43] VITALS: BMI 23.6
[2021-03-28] MEDS: Loratadine 10 MG TAB PO SCH (19:59)
[2021-03-28] MEDS: traMADol HCl 50 MG TAB PO PRN (20:04)
[2021-03-29] MEDS: Acetaminophen 325 MG TAB PO PRN (00:46)
[2021-03-29] MEDS: Levothyroxine Sodium 75 MCG TAB PO SCH (05:33)
[2021-03-29] MEDS: Enoxaparin Sodium 40 MG/0.4 ML SYRINGE SC SCH (09:35)
[2021-03-29] MEDS: predniSONE 20 MG TAB PO SCH (09:36)
[2021-03-29] MEDS: Famotidine 20 MG TAB PO SCH ×2 (09:36→20:24)
[2021-03-29] MEDS: Digoxin 0.125 MG TAB PO SCH (09:37)
[2021-03-29] MEDS: Polyethylene Glycol 3350 17 GM Packet PO SCH (09:38)
[2021-03-29] MEDS: Aspirin 81 mg Enteric Coated Tablet PO SCH (09:38)
[2021-03-29] MEDS: Mometasone 200 MCG/Formoterol 5 MCG 120 PUFF INHALER INH SCH ×2 (09:44→16:51)
[2021-03-29 12:30] LABS: #Eosinphils 0.4 thou/uL (0.0-0.7); #Lymphocytes 1.3 thou/uL (1.20-3.40); #Monocytes 1.1 thou/uL (0.11-0.59); #Neutrophils 12.6 thou/uL (1.40-6.50); %Basophils 0.1 % (0.0-1.0); %Eosinophils 2.6 % (0.0-10.0); %Lymphocytes 8.2 % (21.0-51.0); %Monocytes 6.8 % (0.0-10.0); %Neutrophils 82.2 % (42.0-75.0); Hemoglobin 10.3 g/dL (12.0-16.0); Mean Corpuscular HGB CONC 31.3 g/dL (32.0-36.0); Mean Corpuscular Hemoglobin 29.7 pg (27.0-31.0); Mean Corpuscular Volume 94.9 fL (78.0-98.0); Mean Platelet Volume 6.8 fL (7.4-10.4); Platelet Count 439 thou/uL (130-400); RBC Distribution Width 17.7 % (11.5-14.5); Red Blood Cell (RBC) Count 3.46 mill/uL (4.20-5.40); White Blood Cell (WBC) Count 15.4 thou/uL (4.8-10.8)
[2021-03-29] MEDS: Calcium Carbonate 500 MG ChewTAB PO PRN (13:14)
[2021-03-29] MEDS: Lorazepam 2 MG/ML VIAL SLOW IVP PRN (20:24)
[2021-03-29] MEDS: Loratadine 10 MG TAB PO SCH (20:25)
[2021-03-29] MEDS: traMADol HCl 50 MG TAB PO PRN (20:30)
[2021-03-30] MEDS: Levothyroxine Sodium 75 MCG TAB PO SCH (05:43)
[2021-03-30] MEDS: Mometasone 200 MCG/Formoterol 5 MCG 120 PUFF INHALER INH SCH ×2 (08:01→19:00)
[2021-03-30] MEDS: Aspirin 81 mg Enteric Coated Tablet PO SCH (08:41)
[2021-03-30] MEDS: Polyethylene Glycol 3350 17 GM Packet PO SCH (08:42)
[2021-03-30] MEDS: Famotidine 20 MG TAB PO SCH ×2 (08:42→21:11)
[2021-03-30] MEDS: Enoxaparin Sodium 40 MG/0.4 ML SYRINGE SC SCH (08:42)
[2021-03-30] MEDS: Digoxin 0.125 MG TAB PO SCH (08:42)
[2021-03-30] MEDS: predniSONE 20 MG TAB PO SCH (11:45)
[2021-03-30] MEDS ORDERED: Furosemide 20 MG/2 ML VIAL SLOW IVP SCH (15:00)
[2021-03-30] MEDS: Lorazepam 2 MG/ML VIAL SLOW IVP PRN (15:51)
[2021-03-30] MEDS: traMADol HCl 50 MG TAB PO PRN (21:11)
[2021-03-30] MEDS: Loratadine 10 MG TAB PO SCH (21:11)
[2021-03-31] MEDS: Lorazepam 2 MG/ML VIAL SLOW IVP PRN (00:30)
[2021-03-31] MEDS: Levothyroxine Sodium 75 MCG TAB PO SCH (06:34)
[2021-03-31] MEDS: Mometasone 200 MCG/Formoterol 5 MCG 120 PUFF INHALER INH SCH ×2 (08:11→18:29)
[2021-03-31] MEDS: Aspirin 81 mg Enteric Coated Tablet PO SCH (08:58)
[2021-03-31] MEDS: Digoxin 0.125 MG TAB PO SCH (08:58)
[2021-03-31] MEDS: Famotidine 20 MG TAB PO SCH ×2 (08:58→20:33)
[2021-03-31] MEDS: Polyethylene Glycol 3350 17 GM Packet PO SCH (08:59)
[2021-03-31] MEDS: Enoxaparin Sodium 40 MG/0.4 ML SYRINGE SC SCH (08:59)
[2021-03-31] MEDS: predniSONE 20 MG TAB PO SCH (11:34)
[2021-03-31] MEDS: Calcium Carbonate 500 MG ChewTAB PO PRN (13:45)
[2021-03-31] MEDS: Loratadine 10 MG TAB PO SCH (20:33)
[2021-03-31] MEDS: traMADol HCl 50 MG TAB PO PRN (21:21)
[2021-04-01] MEDS: Levothyroxine Sodium 75 MCG TAB PO SCH (06:00)
[2021-04-01] MEDS: Mometasone 200 MCG/Formoterol 5 MCG 120 PUFF INHALER INH SCH (07:31)
[2021-04-01] MEDS: Aspirin 81 mg Enteric Coated Tablet PO SCH (08:33)
[2021-04-01] MEDS: Digoxin 0.125 MG TAB PO SCH (08:33)
[2021-04-01] MEDS: Enoxaparin Sodium 40 MG/0.4 ML SYRINGE SC SCH (08:36)
[2021-04-01] MEDS: Famotidine 20 MG TAB PO SCH (08:37)
[2021-04-01] MEDS: Polyethylene Glycol 3350 17 GM Packet PO SCH (08:37)
[2021-04-01 08:39] VITALS: BP 113/68; TEMP 98.3
[2021-04-01] MEDS: traMADol HCl 50 MG TAB PO PRN ×2 (10:15→18:03)
[2021-04-01] MEDS: Calcium Carbonate 500 MG ChewTAB PO PRN ×2 (12:47→18:02)
[2021-04-01] MEDS: predniSONE 20 MG TAB PO SCH (13:35)
[2021-04-01] MEDS: Loratadine 10 MG TAB PO SCH (18:30)
== END 2021-04-01 19:15 | disposition swing bed (61) | DRG 189 ==
LOC: ERS 18:41 → IMCU/EMU 20:47 → MSONC 03-28 00:41
PROVIDERS: ADMIT Internal Medicine; ATTEND Internal Medicine
PROC: 5A09457 Assistance with Respiratory Ventilation, 24-96 Consecutive Hours, Continuous Positive Airway Pressure (ICD-10-PCS; principal; 2021-03-18)
DX: J96.21 Acute and chronic respiratory failure with hypoxia (principal); G93.41 Metabolic encephalopathy; J44.1 Chronic obstructive pulmonary disease with (acute) exacerbation; I50.22 Chronic systolic (congestive) heart failure; I42.9 Cardiomyopathy, unspecified; E87.4 Mixed disorder of acid-base balance; Z66 Do not resuscitate; J96.22 Acute and chronic respiratory failure with hypercapnia; I11.0 Hypertensive heart disease with heart failure; E03.9 Hypothyroidism, unspecified; E78.5 Hyperlipidemia, unspecified; R53.81 Other malaise; E87.5 Hyperkalemia; I95.9 Hypotension, unspecified; E88.09 Other disorders of plasma-protein metabolism, not elsewhere classified; K59.00 Constipation, unspecified; M79.89 Other specified soft tissue disorders; S60.522A Blister (nonthermal) of left hand, initial encounter; Z20.822 Contact with and (suspected) exposure to COVID-19; Z99.81 Dependence on supplemental oxygen; Z95.810 Presence of automatic (implantable) cardiac defibrillator; Z88.5 Allergy status to narcotic agent; Z88.1 Allergy status to other antibiotic agents; Z88.2 Allergy status to sulfonamides; Z88.0 Allergy status to penicillin; Z79.82 Long term (current) use of aspirin; Z79.899 Other long term (current) drug therapy; Z79.01 Long term (current) use of anticoagulants; Z90.49 Acquired absence of other specified parts of digestive tract
CPT/HCPCS: 36415; 36416; 36600; 71045; 71275; 80048; 80053; 80162; 82553; 82805; 83605; 83690; 83735; 83880; 84443; 84484; 85007; 85025; 85027; 87040; 87077; 87086; 87149; 87186; 93005; 94640; 94660; 96372; 96374; 96375; J0610; J0696; J1650; J1815; J1940; J2060; J2405; J2920; J2930; J3475; J3490; J7512; J7620; P9047; Q9967; S0028; U0002; U0003; U0005

== ENCOUNTER 2021-05-03 15:32 | Outpatient (CLI) | payer MEDICARE | END 2021-05-03 15:33 | disposition home or self-care (01) | LOC: ULT 15:32 | PROVIDERS: ATTEND Family Medicine | DX: Z53.9 Procedure and treatment not carried out, unspecified reason (principal) ==

== ENCOUNTER 2021-05-29 17:02 | Inpatient (IN) | payer MEDICARE ==
[~2021-05-29 17:02] MED LIST changes: -Iopamidol-370 76% 500 ML 1 ML ONE; +Meropenem 1 GM in Sodium Chloride 0.9% 100 ML IVPB SCH
[2021-05-29 17:24] LABS: Analyzer IN Cardio ER; Base Excess 12.6 mEq/L (-2.0 to +3.0); pH (venous) 7.38 (7.32-7.43)
[2021-05-29 17:25] LABS: Chloride (VBG) 89 mmol/L (98-106); Potassium (VBG) 4.83 mmol/L (3.70-5.30); Sodium 135.5 mmol/L (133-146)
[2021-05-29 17:35] LABS: Actual Bicarbonate (HCO3v) 41 mEq/L (22-28)
[2021-05-29] MEDS ORDERED: Meropenem 1 GM in Sodium Chloride 0.9% 100 ML IVPB SCH (22:00)
[2021-05-29] MEDS: Mometasone 100 MCG/Formoterol 5 MCG 120 PUFF INHALER INH SCH ×2 (22:16→22:26)
[2021-05-29] MEDS: methylPREDNISolone Sod Succ 40 MG VIAL IVP SCH (23:32)
[2021-05-30] MEDS ORDERED: Meropenem 1 GM in Sodium Chloride 0.9% 100 ML IVPB SCH (00:45)
[2021-05-30 03:48] LABS: Anion Gap 19 mmol/L (10-20); BUN (Urea Nitrogen) 29 mg/dL (9.8-20.1); Calc. Creatinine Clearance 40 mL/min (70-130); Calcium 9.1 mg/dL (7.8-10.44); Carbon Dioxide 31 mmol/L (23-31); Chloride 87 mmol/L (98-107); Glucose 138 mg/dL (83-110); Potassium 5.4 mmol/L (3.5-5.1); Sodium 132 mmol/L (136-145)
[2021-05-30 03:51] LABS: Band 21 % (5-11); Hemoglobin 10.9 g/dL (12.0-16.0); Lymphocytes 5 % (21-51); MDiff Complete? YES; Mean Corpuscular HGB CONC 30.1 g/dL (32.0-36.0); Mean Corpuscular Hemoglobin 28.5 pg (27.0-31.0); Mean Corpuscular Volume 94.6 fL (78.0-98.0); Mean Platelet Volume 6.7 fL (7.4-10.4); Monocytes 2 % (0-10); Neutrophil 72 % (42-75); Platelet Count 349 thou/uL (130-400); Platelet Morphology Comment Appears Adequate; RBC Distribution Width 16.2 % (11.5-14.5); RBC Morphology Normal; Red Blood Cell (RBC) Count 3.84 mill/uL (4.20-5.40); White Blood Cell (WBC) Count 19.7 thou/uL (4.8-10.8)
[2021-05-30] MEDS: methylPREDNISolone Sod Succ 40 MG VIAL IVP SCH (05:49)
[2021-05-30] MEDS: Enoxaparin Sodium 30 MG/0.3 ML SYRINGE SC SCH (07:47)
[2021-05-30] MEDS ORDERED: Lorazepam 2 MG/ML VIAL IVPB SCH (08:15)
[2021-05-30] MEDS: Meropenem 1 GM in Sodium Chloride 0.9% 100 ML IVPB SCH ×2 (09:24→20:50)
[2021-05-30] MEDS: Mometasone 100 MCG/Formoterol 5 MCG 120 PUFF INHALER INH SCH ×2 (10:29→19:14)
[2021-05-30] MEDS: acetaZOLAMIDE Sodium 500 MG in Sodium Chloride 0.9% 50 ML IVPB SCH (13:16)
[2021-05-30] MEDS: Azithromycin 500 MG in Sodium Chloride 0.9% 250 ML 250 ML IVPB SCH (13:24)
[2021-05-30] MEDS: Vancomycin 1 GM in Premix Bag 1 BAG IVPB SCH (16:31)
[2021-05-30] MEDS ORDERED: Amiodarone 450 MG, Admixture Fee 1 EACH in Dextrose 5% in Water 250 ML IVPB SCH (18:30)
[2021-05-30] MEDS ORDERED: ALPRAZolam 0.5 MG TAB PO SCH (20:15)
[2021-05-30] MEDS: Atorvastatin Calcium 40 MG TAB PO SCH (20:50)
[2021-05-30 21:07] LABS: BUN (Urea Nitrogen) 44 mg/dL (9.8-20.1); Calc. Creatinine Clearance 31 mL/min (70-130); Calcium 8.9 mg/dL (7.8-10.44); Glucose 165 mg/dL (83-110); Magnesium 1.5 mg/dL (1.6-2.6)
[2021-05-30 21:16] LABS: Anion Gap 16 mmol/L (10-20); Carbon Dioxide 38 mmol/L (23-31); Chloride 85 mmol/L (98-107); Potassium 4.5 mmol/L (3.5-5.1); Sodium 134 mmol/L (136-145)
[2021-05-30] MEDS ORDERED: Magnesium 2 GM/50 ML(in water) 2 GM in Premix Bag 1 BAG IVPB SCH (22:00)
[2021-05-31] MEDS: acetaZOLAMIDE Sodium 500 MG in Sodium Chloride 0.9% 50 ML IVPB SCH ×3 (00:25→23:20)
[2021-05-31 04:03] LABS: #Lymphocytes 0.9 thou/uL (1.20-3.40); #Monocytes 1.2 thou/uL (0.11-0.59); #Neutrophils 14.3 thou/uL (1.40-6.50); %Eosinophils 0.2 % (0.0-10.0); %Lymphocytes 5.4 % (21.0-51.0); %Monocytes 7.1 % (0.0-10.0); %Neutrophils 87.3 % (42.0-75.0); Hemoglobin 10.4 g/dL (12.0-16.0); Mean Corpuscular HGB CONC 30.2 g/dL (32.0-36.0); Mean Corpuscular Hemoglobin 28.3 pg (27.0-31.0); Mean Corpuscular Volume 93.9 fL (78.0-98.0); Mean Platelet Volume 6.8 fL (7.4-10.4); Platelet Count 341 thou/uL (130-400); RBC Distribution Width 16.3 % (11.5-14.5); Red Blood Cell (RBC) Count 3.66 mill/uL (4.20-5.40); White Blood Cell (WBC) Count 16.4 thou/uL (4.8-10.8)
[2021-05-31 04:22] LABS: BUN (Urea Nitrogen) 46 mg/dL (9.8-20.1); Calc. Creatinine Clearance 35 mL/min (70-130); Calcium 9.1 mg/dL (7.8-10.44); Glucose 116 mg/dL (83-110); Magnesium 2.3 mg/dL (1.6-2.6)
[2021-05-31 04:32] LABS: Anion Gap 16 mmol/L (10-20); Carbon Dioxide 37 mmol/L (23-31); Chloride 87 mmol/L (98-107); Potassium 4.3 mmol/L (3.5-5.1); Sodium 136 mmol/L (136-145)
[2021-05-31] MEDS: Levothyroxine Sodium 75 MCG TAB PO SCH (06:24)
[2021-05-31] MEDS: Mometasone 100 MCG/Formoterol 5 MCG 120 PUFF INHALER INH SCH ×2 (08:07→18:52)
[2021-05-31] MEDS: Aspirin 81 mg Enteric Coated Tablet PO SCH (09:55)
[2021-05-31] MEDS: methylPREDNISolone Sod Succ 40 MG VIAL IVP SCH (09:55)
[2021-05-31] MEDS: Meropenem 1 GM in Sodium Chloride 0.9% 100 ML IVPB SCH (09:55)
[2021-05-31] MEDS: Digoxin 0.125 MG TAB PO SCH (09:55)
[2021-05-31] MEDS: Enoxaparin Sodium 30 MG/0.3 ML SYRINGE SC SCH (09:55)
[2021-05-31] MEDS: Azithromycin 500 MG in Sodium Chloride 0.9% 250 ML 250 ML IVPB SCH (12:38)
[2021-05-31 14:09] LABS: Vancomycin, Trough 17.9 ug/mL
[2021-05-31] MEDS: Vancomycin 1 GM in Premix Bag 1 BAG IVPB SCH (14:33)
[2021-05-31 19:54] LABS: Troponin I 0.156 ng/mL (< 0.028)
[2021-05-31] MEDS: Acetaminophen 325 MG TAB PO PRN (19:58)
[2021-05-31] MEDS: Atorvastatin Calcium 40 MG TAB PO SCH (19:59)
[2021-05-31] MEDS: Ondansetron PF 4 MG/2 ML Vial IVP PRN (19:59)
[2021-05-31] MEDS: Loratadine 10 MG TAB PO SCH (20:58)
[2021-05-31] MEDS: busPIRone HCl 5 MG TAB PO SCH (20:58)
[2021-05-31] MEDS: FLUoxetine HCl 20 MG CAP PO SCH (20:58)
[2021-05-31] MEDS: guaiFENesin ER 600 MG TAB PO PRN (20:58)
[2021-05-31 21:27] LABS: Troponin I 0.168 ng/mL (< 0.028)
[2021-06-01 03:47] LABS: #Eosinphils 0.1 thou/uL (0.0-0.7); #Monocytes 0.8 thou/uL (0.11-0.59); #Neutrophils 11.2 thou/uL (1.40-6.50); %Basophils 0.1 % (0.0-1.0); %Eosinophils 0.5 % (0.0-10.0); %Lymphocytes 7.6 % (21.0-51.0); %Monocytes 6.2 % (0.0-10.0); %Neutrophils 85.7 % (42.0-75.0); Hemoglobin 10.7 g/dL (12.0-16.0); Mean Corpuscular HGB CONC 31.1 g/dL (32.0-36.0); Mean Corpuscular Hemoglobin 29.7 pg (27.0-31.0); Mean Corpuscular Volume 95.4 fL (78.0-98.0); Mean Platelet Volume 6.8 fL (7.4-10.4); Platelet Count 310 thou/uL (130-400); RBC Distribution Width 16.1 % (11.5-14.5); Red Blood Cell (RBC) Count 3.61 mill/uL (4.20-5.40); White Blood Cell (WBC) Count 13.1 thou/uL (4.8-10.8)
[2021-06-01 04:12] LABS: BUN (Urea Nitrogen) 53 mg/dL (9.8-20.1); Calc. Creatinine Clearance 41 mL/min (70-130); Calcium 9.2 mg/dL (7.8-10.44); Glucose 142 mg/dL (83-110); Magnesium 2.5 mg/dL (1.6-2.6)
[2021-06-01 04:23] LABS: Anion Gap 19 mmol/L (10-20); Carbon Dioxide 36 mmol/L (23-31); Chloride 86 mmol/L (98-107); Sodium 137 mmol/L (136-145)
[2021-06-01] MEDS: Levothyroxine Sodium 75 MCG TAB PO SCH (05:35)
[2021-06-01] MEDS: Mometasone 100 MCG/Formoterol 5 MCG 120 PUFF INHALER INH SCH ×2 (07:00→19:02)
[2021-06-01] MEDS: Enoxaparin Sodium 30 MG/0.3 ML SYRINGE SC SCH (09:05)
[2021-06-01] MEDS: methylPREDNISolone Sod Succ 40 MG VIAL IVP SCH (09:05)
[2021-06-01] MEDS: guaiFENesin ER 600 MG TAB PO PRN (09:06)
[2021-06-01] MEDS: Digoxin 0.125 MG TAB PO SCH (09:06)
[2021-06-01] MEDS: Aspirin 81 mg Enteric Coated Tablet PO SCH (09:06)
[2021-06-01] MEDS: Azithromycin 500 MG in Sodium Chloride 0.9% 250 ML 250 ML IVPB SCH (12:16)
[2021-06-01] MEDS: acetaZOLAMIDE Sodium 500 MG in Sodium Chloride 0.9% 50 ML IVPB SCH ×2 (13:24→23:07)
[2021-06-01] MEDS: Vancomycin 1 GM in Premix Bag 1 BAG IVPB SCH (15:25)
[2021-06-01] MEDS: busPIRone HCl 5 MG TAB PO SCH (21:16)
[2021-06-01] MEDS: FLUoxetine HCl 20 MG CAP PO SCH (21:16)
[2021-06-01] MEDS: Atorvastatin Calcium 40 MG TAB PO SCH (21:16)
[2021-06-01] MEDS: Loratadine 10 MG TAB PO SCH (21:16)
[2021-06-02] MEDS: Levothyroxine Sodium 75 MCG TAB PO SCH (05:49)
[2021-06-02] MEDS: Mometasone 100 MCG/Formoterol 5 MCG 120 PUFF INHALER INH SCH ×2 (07:08→18:33)
[2021-06-02] MEDS: methylPREDNISolone Sod Succ 40 MG VIAL IVP SCH (07:54)
[2021-06-02] MEDS: Enoxaparin Sodium 30 MG/0.3 ML SYRINGE SC SCH (07:54)
[2021-06-02] MEDS: Aspirin 81 mg Enteric Coated Tablet PO SCH (07:55)
[2021-06-02] MEDS: Digoxin 0.125 MG TAB PO SCH (07:58)
[2021-06-02 08:00] LABS: Magnesium 2.5 mg/dL (1.6-2.6)
[2021-06-02] MEDS ORDERED: cefTRIAXone\\ROCEPHIN 1 GM in Sodium Chloride 0.9% 100 ML IVPB SCH ×2 (09:00→10:00)
[2021-06-02] MEDS: Azithromycin 250 MG TAB PO SCH (14:45)
[2021-06-02] MEDS ORDERED: Meropenem 1 GM in Sodium Chloride 0.9% 100 ML IVPB SCH ×2 (17:30→22:00)
[2021-06-02] MEDS ORDERED: ALPRAZolam 0.25 MG TAB PO SCH (17:45)
[2021-06-02] MEDS ORDERED: Vancomycin 1 GM in Premix Bag 1 BAG IVPB SCH (18:00)
[2021-06-02] MEDS: FLUoxetine HCl 20 MG CAP PO SCH (20:19)
[2021-06-02] MEDS: busPIRone HCl 5 MG TAB PO SCH (20:19)
[2021-06-02] MEDS: Loratadine 10 MG TAB PO SCH (20:19)
[2021-06-02] MEDS: Atorvastatin Calcium 40 MG TAB PO SCH (20:19)
[2021-06-03] MEDS ORDERED: Meropenem 1 GM in Sodium Chloride 0.9% 100 ML IVPB SCH ×2 (01:00→12:00)
[2021-06-03] MEDS: Levothyroxine Sodium 75 MCG TAB PO SCH (05:15)
[2021-06-03] MEDS: Mometasone 100 MCG/Formoterol 5 MCG 120 PUFF INHALER INH SCH ×2 (06:58→19:30)
[2021-06-03] MEDS: Acetaminophen 325 MG TAB PO PRN ×2 (08:14→19:55)
[2021-06-03] MEDS: Digoxin 0.125 MG TAB PO SCH (08:15)
[2021-06-03] MEDS: predniSONE 20 MG TAB PO SCH (08:15)
[2021-06-03] MEDS: Aspirin 81 mg Enteric Coated Tablet PO SCH (08:15)
[2021-06-03 09:02] LABS: #Basophils 0.1 thou/uL (0.0-0.2); #Eosinphils 0.1 thou/uL (0.0-0.7); #Monocytes 1.4 thou/uL (0.11-0.59); #Neutrophils 8.1 thou/uL (1.40-6.50); %Basophils 0.4 % (0.0-1.0); %Eosinophils 1.3 % (0.0-10.0); %Lymphocytes 16.8 % (21.0-51.0); %Neutrophils 69.5 % (42.0-75.0); Hemoglobin 10.5 g/dL (12.0-16.0); Mean Corpuscular Hemoglobin 29.9 pg (27.0-31.0); Mean Corpuscular Volume 93.3 fL (78.0-98.0); Mean Platelet Volume 6.6 fL (7.4-10.4); Platelet Count 336 thou/uL (130-400); RBC Distribution Width 15.9 % (11.5-14.5); Red Blood Cell (RBC) Count 3.52 mill/uL (4.20-5.40); White Blood Cell (WBC) Count 11.6 thou/uL (4.8-10.8)
[2021-06-03 09:19] LABS: BUN (Urea Nitrogen) 35 mg/dL (9.8-20.1); Calc. Creatinine Clearance 66 mL/min (70-130); Calcium 10.2 mg/dL (7.8-10.44); Glucose 85 mg/dL (83-110)
[2021-06-03 09:28] LABS: Anion Gap 12 mmol/L (10-20); Carbon Dioxide 40 mmol/L (23-31); Chloride 90 mmol/L (98-107); Potassium 3.8 mmol/L (3.5-5.1); Sodium 138 mmol/L (136-145)
[2021-06-03] MEDS ORDERED: Furosemide 40 MG/4 ML VIAL SLOW IVP SCH (09:30)
[2021-06-03] MEDS: Enoxaparin Sodium 30 MG/0.3 ML SYRINGE SC SCH (10:45)
[2021-06-03] MEDS: Azithromycin 250 MG TAB PO SCH (13:06)
[2021-06-03] MEDS: traMADol HCl 50 MG TAB PO PRN (17:22)
[2021-06-03 17:36] LABS: Vancomycin, Trough 24.5 ug/mL
[2021-06-03] MEDS: cefTRIAXone\\ROCEPHIN 1 GM in Sodium Chloride 0.9% 100 ML IVPB SCH (19:47)
[2021-06-03] MEDS: busPIRone HCl 5 MG TAB PO SCH (19:56)
[2021-06-03] MEDS: FLUoxetine HCl 20 MG CAP PO SCH (19:56)
[2021-06-03] MEDS: Loratadine 10 MG TAB PO SCH (19:56)
[2021-06-03] MEDS: Atorvastatin Calcium 40 MG TAB PO SCH (19:56)
[2021-06-03] MEDS ORDERED: Metoprolol Tartrate 5 MG/5 ML VIAL IVP SCH (21:30)
[2021-06-04] MEDS: Metoprolol Tartrate 5 MG/5 ML VIAL IVP SCH ×2 (00:14→04:36)
[2021-06-04] MEDS ORDERED: Potassium Chloride 20 MEQ TAB PO SCH (01:12)
[2021-06-04 01:45] LABS: Troponin I 0.052 ng/mL (< 0.028)
[2021-06-04] MEDS ORDERED: Diltiazem 125 MG in Sodium Chloride 0.9% 100 ML IVPB SCH (02:15)
[2021-06-04 02:45] LABS: #Eosinphils 0.1 thou/uL (0.0-0.7); #Lymphocytes 1.4 thou/uL (1.20-3.40); #Monocytes 1.5 thou/uL (0.11-0.59); #Neutrophils 9.9 thou/uL (1.40-6.50); %Eosinophils 0.7 % (0.0-10.0); %Lymphocytes 10.9 % (21.0-51.0); %Monocytes 11.5 % (0.0-10.0); %Neutrophils 76.8 % (42.0-75.0); Hemoglobin 10.3 g/dL (12.0-16.0); Mean Corpuscular HGB CONC 31.8 g/dL (32.0-36.0); Mean Corpuscular Hemoglobin 29.1 pg (27.0-31.0); Mean Corpuscular Volume 91.7 fL (78.0-98.0); Mean Platelet Volume 6.8 fL (7.4-10.4); Platelet Count 386 thou/uL (130-400); RBC Distribution Width 16.3 % (11.5-14.5); Red Blood Cell (RBC) Count 3.54 mill/uL (4.20-5.40); White Blood Cell (WBC) Count 12.8 thou/uL (4.8-10.8)
[2021-06-04 03:34] LABS: BUN (Urea Nitrogen) 34 mg/dL (9.8-20.1); Calc. Creatinine Clearance 59 mL/min (70-130); Glucose 119 mg/dL (83-110)
[2021-06-04 03:46] LABS: Chloride 89 mmol/L (98-107); Potassium 3.9 mmol/L (3.5-5.1); Sodium 138 mmol/L (136-145)
[2021-06-04 03:49] LABS: Carbon Dioxide 37 mmol/L (23-31)
[2021-06-04 03:50] LABS: Anion Gap 16 mmol/L (10-20)
[2021-06-04] MEDS: traMADol HCl 50 MG TAB PO PRN ×3 (04:26→19:28)
[2021-06-04] MEDS: Levothyroxine Sodium 75 MCG TAB PO SCH (06:35)
[2021-06-04] MEDS: Mometasone 100 MCG/Formoterol 5 MCG 120 PUFF INHALER INH SCH ×2 (07:10→18:43)
[2021-06-04] MEDS: Aspirin 81 mg Enteric Coated Tablet PO SCH (08:36)
[2021-06-04] MEDS: Enoxaparin Sodium 30 MG/0.3 ML SYRINGE SC SCH (08:36)
[2021-06-04] MEDS: predniSONE 20 MG TAB PO SCH (08:36)
[2021-06-04] MEDS: Digoxin 0.125 MG TAB PO SCH (08:36)
[2021-06-04] MEDS ORDERED: predniSONE 20 MG TAB PO SCH ×2 (09:49→10:30)
[2021-06-04] MEDS: Azithromycin 250 MG TAB PO SCH (11:16)
[2021-06-04 13:14] LABS: Actual Bicarbonate (HCO3a) 43.1 mEq/L (22-28); Base Excess (BEa) 15.4 mEq/L (-2.0 to +3.0); Calcium, Ionized (arterial) 1.33 mmol/L (1.12-1.30); Carboxyhemoglobin (COHb) 0.3 gm% (0.0-3.0); Hemoglobin (Hb) 11.7 g/dL (12.0-16.0); O2 Tension (PaO2), arterial 60.3 mmHg (> 70.0); Potassium - ABG Lab 4.45 mmol/L (3.70-5.30); pH, Arterial 7.41 (7.35-7.45)
[2021-06-04] MEDS ORDERED: Furosemide 40 MG/4 ML VIAL SLOW IVP SCH ×2 (13:15→17:45)
[2021-06-04 13:22] LABS: Puncture Site LRA
[2021-06-04] MEDS ORDERED: Digoxin 0.5 MG/2 ML AMP SLOW IVP SCH ×2 (13:30→18:00)
[2021-06-04] MEDS: Furosemide 40 MG/4 ML VIAL SLOW IVP SCH (13:55)
[2021-06-04] MEDS: Acetaminophen 325 MG TAB PO PRN (14:06)
[2021-06-04] MEDS ORDERED: Amiodarone 150 MG in Dextrose 5% in Water 100 ML IVPB SCH (18:00)
[2021-06-04] MEDS: Amiodarone 450 MG in Dextrose 5% in Water 250 ML IVPB SCH (19:29)
[2021-06-04] MEDS: FLUoxetine HCl 20 MG CAP PO SCH (20:43)
[2021-06-04] MEDS: busPIRone HCl 5 MG TAB PO SCH (20:43)
[2021-06-04] MEDS: Loratadine 10 MG TAB PO SCH (20:43)
[2021-06-04] MEDS: Enoxaparin Sodium 60 MG/0.6 ML SYRINGE SC SCH (20:43)
[2021-06-04] MEDS: Atorvastatin Calcium 40 MG TAB PO SCH (20:43)
[2021-06-04] MEDS: cefTRIAXone\\ROCEPHIN 1 GM in Sodium Chloride 0.9% 100 ML IVPB SCH (20:44)
[2021-06-05] MEDS: traMADol HCl 50 MG TAB PO PRN ×3 (04:11→20:59)
[2021-06-05] MEDS: Amiodarone 450 MG in Dextrose 5% in Water 250 ML IVPB SCH (04:14)
[2021-06-05 04:48] LABS: BUN (Urea Nitrogen) 25 mg/dL (9.8-20.1); Calc. Creatinine Clearance 68 mL/min (70-130); Calcium 9.8 mg/dL (7.8-10.44); Glucose 224 mg/dL (83-110)
[2021-06-05 04:57] LABS: Anion Gap 14 mmol/L (10-20); Carbon Dioxide 36 mmol/L (23-31); Chloride 88 mmol/L (98-107); Potassium 3.9 mmol/L (3.5-5.1); Sodium 134 mmol/L (136-145)
[2021-06-05 05:21] LABS: Band 12 % (5-11); Lymphocytes 14 % (21-51); MDiff Complete? YES; Mean Corpuscular HGB CONC 30.6 g/dL (32.0-36.0); Mean Corpuscular Hemoglobin 28.1 pg (27.0-31.0); Mean Corpuscular Volume 91.8 fL (78.0-98.0); Monocytes 6 % (0-10); Neutrophil 68 % (42-75); Platelet Count 489 thou/uL (130-400); RBC Distribution Width 17.1 % (11.5-14.5); Red Blood Cell (RBC) Count 3.92 mill/uL (4.20-5.40); White Blood Cell (WBC) Count 15.4 thou/uL (4.8-10.8)
[2021-06-05 05:37] LABS: Digoxin 3.32 ng/mL (0.8-2.0)
[2021-06-05] MEDS: Levothyroxine Sodium 75 MCG TAB PO SCH (06:07)
[2021-06-05] MEDS: Mometasone 100 MCG/Formoterol 5 MCG 120 PUFF INHALER INH SCH ×2 (07:40→18:43)
[2021-06-05] MEDS: Enoxaparin Sodium 60 MG/0.6 ML SYRINGE SC SCH ×2 (08:34→20:57)
[2021-06-05] MEDS: Aspirin 81 mg Enteric Coated Tablet PO SCH (08:34)
[2021-06-05] MEDS: predniSONE 20 MG TAB PO SCH (08:35)
[2021-06-05] MEDS: Furosemide 40 MG/4 ML VIAL SLOW IVP SCH (13:18)
[2021-06-05] MEDS: Acetaminophen 325 MG TAB PO PRN (18:39)
[2021-06-05] MEDS: cefTRIAXone\\ROCEPHIN 1 GM in Sodium Chloride 0.9% 100 ML IVPB SCH (20:56)
[2021-06-05] MEDS: FLUoxetine HCl 20 MG CAP PO SCH (20:57)
[2021-06-05] MEDS: busPIRone HCl 5 MG TAB PO SCH (20:57)
[2021-06-05] MEDS: Loratadine 10 MG TAB PO SCH (20:57)
[2021-06-05] MEDS: Atorvastatin Calcium 40 MG TAB PO SCH (20:57)
[2021-06-06 04:31] LABS: #Basophils 0.1 thou/uL (0.0-0.2); #Eosinphils 0.2 thou/uL (0.0-0.7); #Lymphocytes 2.6 thou/uL (1.20-3.40); #Monocytes 1.5 thou/uL (0.11-0.59); #Neutrophils 9.5 thou/uL (1.40-6.50); %Basophils 0.6 % (0.0-1.0); %Eosinophils 1.4 % (0.0-10.0); %Lymphocytes 18.7 % (21.0-51.0); %Neutrophils 68.3 % (42.0-75.0); Hemoglobin 11.5 g/dL (12.0-16.0); Mean Corpuscular HGB CONC 32.2 g/dL (32.0-36.0); Mean Corpuscular Volume 93.1 fL (78.0-98.0); Mean Platelet Volume 6.8 fL (7.4-10.4); Platelet Count 481 thou/uL (130-400); RBC Distribution Width 17.2 % (11.5-14.5); Red Blood Cell (RBC) Count 3.83 mill/uL (4.20-5.40); White Blood Cell (WBC) Count 13.8 thou/uL (4.8-10.8)
[2021-06-06 05:03] LABS: Digoxin 2.64 ng/mL (0.8-2.0)
[2021-06-06 05:05] LABS: BUN (Urea Nitrogen) 29 mg/dL (9.8-20.1); Calc. Creatinine Clearance 60 mL/min (70-130); Glucose 82 mg/dL (83-110)
[2021-06-06] MEDS: traMADol HCl 50 MG TAB PO PRN ×3 (05:12→21:12)
[2021-06-06] MEDS: Levothyroxine Sodium 75 MCG TAB PO SCH (05:12)
[2021-06-06 05:14] LABS: Anion Gap 16 mmol/L (10-20); Carbon Dioxide 39 mmol/L (23-31); Chloride 86 mmol/L (98-107); Potassium 3.8 mmol/L (3.5-5.1); Sodium 137 mmol/L (136-145)
[2021-06-06] MEDS: Mometasone 100 MCG/Formoterol 5 MCG 120 PUFF INHALER INH SCH ×2 (07:54→19:01)
[2021-06-06] MEDS: Aspirin 81 mg Enteric Coated Tablet PO SCH (09:25)
[2021-06-06] MEDS: Enoxaparin Sodium 60 MG/0.6 ML SYRINGE SC SCH ×2 (09:25→20:07)
[2021-06-06] MEDS: predniSONE 20 MG TAB PO SCH (09:25)
[2021-06-06] MEDS ORDERED: Furosemide 40 MG TAB PO SCH (12:15)
[2021-06-06] MEDS: Ondansetron PF 4 MG/2 ML Vial IVP PRN (12:20)
[2021-06-06 14:43] VITALS: BMI 23.4
[2021-06-06] MEDS: Carvedilol 3.125 MG TAB PO SCH (18:08)
[2021-06-06] MEDS: Atorvastatin Calcium 40 MG TAB PO SCH (20:05)
[2021-06-06] MEDS: cefTRIAXone\\ROCEPHIN 1 GM in Sodium Chloride 0.9% 100 ML IVPB SCH (20:06)
[2021-06-06] MEDS: busPIRone HCl 5 MG TAB PO SCH (20:06)
[2021-06-06] MEDS: FLUoxetine HCl 20 MG CAP PO SCH (20:06)
[2021-06-06] MEDS: Loratadine 10 MG TAB PO SCH (20:06)
[2021-06-06] MEDS: Amiodarone 200 MG TAB PO SCH (20:06)
[2021-06-06] MEDS: Levalbuterol HCl 0.63 MG/3 ML NEB NEB PRN (20:31)
[2021-06-07 04:08] LABS: #Eosinphils 0.2 thou/uL (0.0-0.7); #Lymphocytes 1.5 thou/uL (1.20-3.40); #Monocytes 1.2 thou/uL (0.11-0.59); #Neutrophils 6.9 thou/uL (1.40-6.50); %Basophils 0.1 % (0.0-1.0); %Eosinophils 1.8 % (0.0-10.0); %Lymphocytes 15.3 % (21.0-51.0); %Monocytes 12.1 % (0.0-10.0); %Neutrophils 70.7 % (42.0-75.0); Mean Corpuscular HGB CONC 31.3 g/dL (32.0-36.0); Mean Corpuscular Hemoglobin 29.6 pg (27.0-31.0); Mean Corpuscular Volume 94.6 fL (78.0-98.0); Mean Platelet Volume 6.7 fL (7.4-10.4); Platelet Count 454 thou/uL (130-400); RBC Distribution Width 17.1 % (11.5-14.5); Red Blood Cell (RBC) Count 3.72 mill/uL (4.20-5.40); White Blood Cell (WBC) Count 9.8 thou/uL (4.8-10.8)
[2021-06-07 04:31] LABS: BUN (Urea Nitrogen) 30 mg/dL (9.8-20.1); Calc. Creatinine Clearance 56 mL/min (70-130); Calcium 9.6 mg/dL (7.8-10.44); Glucose 79 mg/dL (83-110)
[2021-06-07 04:38] LABS: Digoxin 2.66 ng/mL (0.8-2.0)
[2021-06-07 04:40] LABS: Anion Gap 14 mmol/L (10-20); Chloride 84 mmol/L (98-107); Potassium 3.9 mmol/L (3.5-5.1); Sodium 136 mmol/L (136-145)
[2021-06-07 04:44] LABS: Carbon Dioxide 42 mmol/L (23-31)
[2021-06-07] MEDS: Levothyroxine Sodium 75 MCG TAB PO SCH (05:12)
[2021-06-07] MEDS: Mometasone 100 MCG/Formoterol 5 MCG 120 PUFF INHALER INH SCH ×2 (07:26→19:03)
[2021-06-07] MEDS ORDERED: Furosemide 40 MG TAB PO SCH (07:30)
[2021-06-07] MEDS: Enoxaparin Sodium 60 MG/0.6 ML SYRINGE SC SCH ×2 (09:47→20:03)
[2021-06-07] MEDS: traMADol HCl 50 MG TAB PO PRN ×2 (09:48→20:00)
[2021-06-07] MEDS: Amiodarone 200 MG TAB PO SCH ×2 (09:48→20:03)
[2021-06-07] MEDS: predniSONE 20 MG TAB PO SCH ×2 (09:50→10:33)
[2021-06-07] MEDS: Carvedilol 3.125 MG TAB PO SCH ×2 (09:50→16:32)
[2021-06-07] MEDS: acetaZOLAMIDE Sodium 500 MG, Admixture Fee 1 EACH in Sodium Chloride 0.9% 50 ML IVPB SCH (09:50)
[2021-06-07] MEDS: Aspirin 81 mg Enteric Coated Tablet PO SCH (09:51)
[2021-06-07] MEDS: Acetaminophen 325 MG TAB PO PRN (13:29)
[2021-06-07] MEDS: Furosemide 40 MG TAB PO SCH (13:30)
[2021-06-07] MEDS ORDERED: Furosemide 20 MG TAB PO SCH (14:00)
[2021-06-07] MEDS: guaiFENesin ER 600 MG TAB PO PRN (16:32)
[2021-06-07] MEDS: Levalbuterol HCl 0.63 MG/3 ML NEB NEB PRN (19:02)
[2021-06-07] MEDS: Atorvastatin Calcium 40 MG TAB PO SCH (20:02)
[2021-06-07] MEDS: busPIRone HCl 5 MG TAB PO SCH (20:03)
[2021-06-07] MEDS: Loratadine 10 MG TAB PO SCH (20:03)
[2021-06-07] MEDS: FLUoxetine HCl 20 MG CAP PO SCH (20:03)
[2021-06-08 04:13] LABS: #Eosinphils 0.2 thou/uL (0.0-0.7); #Lymphocytes 2.3 thou/uL (1.20-3.40); #Monocytes 1.2 thou/uL (0.11-0.59); #Neutrophils 5.2 thou/uL (1.40-6.50); %Basophils 0.1 % (0.0-1.0); %Eosinophils 2.6 % (0.0-10.0); %Lymphocytes 25.8 % (21.0-51.0); %Monocytes 13.7 % (0.0-10.0); %Neutrophils 57.7 % (42.0-75.0); Hemoglobin 10.4 g/dL (12.0-16.0); Mean Corpuscular Hemoglobin 28.3 pg (27.0-31.0); Mean Corpuscular Volume 94.1 fL (78.0-98.0); Mean Platelet Volume 6.6 fL (7.4-10.4); Platelet Count 462 thou/uL (130-400); RBC Distribution Width 17.1 % (11.5-14.5); Red Blood Cell (RBC) Count 3.66 mill/uL (4.20-5.40)
[2021-06-08 04:30] LABS: BUN (Urea Nitrogen) 28 mg/dL (9.8-20.1); Calc. Creatinine Clearance 61 mL/min (70-130); Calcium 9.4 mg/dL (7.8-10.44); Glucose 70 mg/dL (83-110)
[2021-06-08 04:39] LABS: Anion Gap 17 mmol/L (10-20); Carbon Dioxide 35 mmol/L (23-31); Chloride 88 mmol/L (98-107); Potassium 3.6 mmol/L (3.5-5.1); Sodium 136 mmol/L (136-145)
[2021-06-08] MEDS: traMADol HCl 50 MG TAB PO PRN ×3 (04:52→18:02)
[2021-06-08] MEDS: Levothyroxine Sodium 75 MCG TAB PO SCH ×2 (04:52→04:54)
[2021-06-08] MEDS: Mometasone 100 MCG/Formoterol 5 MCG 120 PUFF INHALER INH SCH ×2 (07:45→19:31)
[2021-06-08] MEDS: Potassium Chloride 20 MEQ TAB PO SCH (08:14)
[2021-06-08] MEDS: Aspirin 81 mg Enteric Coated Tablet PO SCH (08:14)
[2021-06-08] MEDS: predniSONE 20 MG TAB PO SCH (08:15)
[2021-06-08] MEDS: Amiodarone 200 MG TAB PO SCH ×2 (08:16→20:53)
[2021-06-08] MEDS: Furosemide 40 MG TAB PO SCH ×2 (08:16→14:04)
[2021-06-08] MEDS: Carvedilol 3.125 MG TAB PO SCH ×2 (08:16→17:08)
[2021-06-08] MEDS: Enoxaparin Sodium 60 MG/0.6 ML SYRINGE SC SCH (08:17)
[2021-06-08] MEDS: acetaZOLAMIDE Sodium 500 MG, Admixture Fee 1 EACH in Sodium Chloride 0.9% 50 ML IVPB SCH (08:17)
[2021-06-08] MEDS: guaiFENesin ER 600 MG TAB PO PRN (11:24)
[2021-06-08] MEDS: Levalbuterol HCl 0.63 MG/3 ML NEB NEB PRN (14:31)
[2021-06-08] MEDS ORDERED: ALPRAZolam 0.5 MG TAB PO PRN (14:42)
[2021-06-08] MEDS: Albuterol Sulfate 1.25 MG/3 ML NEB NEB SCH ×3 (14:53→22:00)
[2021-06-08] MEDS: Atorvastatin Calcium 40 MG TAB PO SCH (20:52)
[2021-06-08] MEDS: Loratadine 10 MG TAB PO SCH (20:53)
[2021-06-08] MEDS: Apixaban 5 MG TAB PO SCH (20:53)
[2021-06-08] MEDS: busPIRone HCl 5 MG TAB PO SCH (20:53)
[2021-06-08] MEDS: FLUoxetine HCl 20 MG CAP PO SCH (20:53)
[2021-06-09 04:34] LABS: #Eosinphils 0.2 thou/uL (0.0-0.7); #Lymphocytes 2.1 thou/uL (1.20-3.40); #Monocytes 1.2 thou/uL (0.11-0.59); #Neutrophils 7.3 thou/uL (1.40-6.50); %Basophils 0.1 % (0.0-1.0); %Eosinophils 1.4 % (0.0-10.0); %Lymphocytes 19.7 % (21.0-51.0); %Monocytes 11.3 % (0.0-10.0); %Neutrophils 67.4 % (42.0-75.0); Hemoglobin 10.9 g/dL (12.0-16.0); Mean Corpuscular HGB CONC 30.6 g/dL (32.0-36.0); Mean Corpuscular Hemoglobin 28.7 pg (27.0-31.0); Mean Corpuscular Volume 93.9 fL (78.0-98.0); Mean Platelet Volume 6.8 fL (7.4-10.4); Platelet Count 505 thou/uL (130-400); RBC Distribution Width 18.4 % (11.5-14.5); Red Blood Cell (RBC) Count 3.81 mill/uL (4.20-5.40); White Blood Cell (WBC) Count 10.8 thou/uL (4.8-10.8)
[2021-06-09 04:53] LABS: BUN (Urea Nitrogen) 29 mg/dL (9.8-20.1); Calc. Creatinine Clearance 58 mL/min (70-130); Calcium 9.6 mg/dL (7.8-10.44); Glucose 75 mg/dL (83-110)
[2021-06-09 05:03] LABS: Anion Gap 17 mmol/L (10-20); Carbon Dioxide 36 mmol/L (23-31); Chloride 89 mmol/L (98-107); Potassium 3.7 mmol/L (3.5-5.1); Sodium 138 mmol/L (136-145)
[2021-06-09] MEDS: Levothyroxine Sodium 75 MCG TAB PO SCH (05:37)
[2021-06-09] MEDS: guaiFENesin ER 600 MG TAB PO PRN (06:09)
[2021-06-09] MEDS: traMADol HCl 50 MG TAB PO PRN ×2 (06:10→23:03)
[2021-06-09] MEDS: Albuterol Sulfate 1.25 MG/3 ML NEB NEB SCH ×3 (07:24→22:23)
[2021-06-09] MEDS: Mometasone 100 MCG/Formoterol 5 MCG 120 PUFF INHALER INH SCH ×2 (07:24→19:07)
[2021-06-09] MEDS: Amiodarone 200 MG TAB PO SCH ×2 (09:41→21:41)
[2021-06-09] MEDS: predniSONE 20 MG TAB PO SCH (09:41)
[2021-06-09] MEDS: Furosemide 40 MG TAB PO SCH (09:42)
[2021-06-09] MEDS: Apixaban 5 MG TAB PO SCH ×2 (09:43→21:41)
[2021-06-09] MEDS: Carvedilol 3.125 MG TAB PO SCH (09:43)
[2021-06-09] MEDS: Potassium Chloride 20 MEQ TAB PO SCH (09:43)
[2021-06-09] MEDS: Aspirin 81 mg Enteric Coated Tablet PO SCH (09:43)
[2021-06-09] MEDS: acetaZOLAMIDE Sodium 500 MG, Admixture Fee 1 EACH in Sodium Chloride 0.9% 50 ML IVPB SCH (09:44)
[2021-06-09] MEDS: Acetaminophen 325 MG TAB PO PRN (13:11)
[2021-06-09] MEDS ORDERED: Albuterol Sulfate 1.25 MG/3 ML NEB ONE (19:00)
[2021-06-09] MEDS: Atorvastatin Calcium 40 MG TAB PO SCH (21:41)
[2021-06-09] MEDS: busPIRone HCl 5 MG TAB PO SCH (21:41)
[2021-06-09] MEDS: FLUoxetine HCl 20 MG CAP PO SCH (21:41)
[2021-06-09] MEDS: Loratadine 10 MG TAB PO SCH (21:41)
[2021-06-10 04:34] LABS: #Eosinphils 0.1 thou/uL (0.0-0.7); #Lymphocytes 1.5 thou/uL (1.20-3.40); #Monocytes 1.1 thou/uL (0.11-0.59); #Neutrophils 7.2 thou/uL (1.40-6.50); %Basophils 0.1 % (0.0-1.0); %Eosinophils 0.9 % (0.0-10.0); %Monocytes 11.4 % (0.0-10.0); %Neutrophils 72.6 % (42.0-75.0); Mean Corpuscular HGB CONC 30.3 g/dL (32.0-36.0); Mean Corpuscular Hemoglobin 28.5 pg (27.0-31.0); Mean Corpuscular Volume 94.1 fL (78.0-98.0); Mean Platelet Volume 6.8 fL (7.4-10.4); Platelet Count 464 thou/uL (130-400); RBC Distribution Width 17.6 % (11.5-14.5); Red Blood Cell (RBC) Count 3.52 mill/uL (4.20-5.40); White Blood Cell (WBC) Count 9.9 thou/uL (4.8-10.8)
[2021-06-10 04:59] LABS: BUN (Urea Nitrogen) 31 mg/dL (9.8-20.1); Calc. Creatinine Clearance 49 mL/min (70-130); Calcium 9.4 mg/dL (7.8-10.44); Glucose 88 mg/dL (83-110)
[2021-06-10 05:08] LABS: Anion Gap 12 mmol/L (10-20); Carbon Dioxide 38 mmol/L (23-31); Chloride 92 mmol/L (98-107); Potassium 3.6 mmol/L (3.5-5.1); Sodium 138 mmol/L (136-145)
[2021-06-10] MEDS: Levothyroxine Sodium 75 MCG TAB PO SCH (05:08)
[2021-06-10] MEDS: Albuterol Sulfate 1.25 MG/3 ML NEB NEB SCH ×2 (07:52→14:08)
[2021-06-10] MEDS: Mometasone 100 MCG/Formoterol 5 MCG 120 PUFF INHALER INH SCH (07:53)
[2021-06-10] MEDS ORDERED: predniSONE 1 MG/ML ML PO SCH (09:00)
[2021-06-10] MEDS: Potassium Chloride 20 MEQ TAB PO SCH (09:05)
[2021-06-10] MEDS: Aspirin 81 mg Enteric Coated Tablet PO SCH (09:05)
[2021-06-10] MEDS: Furosemide 40 MG TAB PO SCH (09:06)
[2021-06-10] MEDS: Amiodarone 200 MG TAB PO SCH (09:06)
[2021-06-10] MEDS: Apixaban 5 MG TAB PO SCH (09:07)
[2021-06-10] MEDS: acetaZOLAMIDE Sodium 500 MG, Admixture Fee 1 EACH in Sodium Chloride 0.9% 50 ML IVPB SCH (09:07)
[2021-06-10 11:41] VITALS: BP 136/65; TEMP 97.8
[2021-06-15] MEDS ORDERED: Amiodarone 200 MG TAB PO SCH (09:00)
[2021-06-29] MEDS ORDERED: Amiodarone 200 MG TAB PO SCH (09:00)
== END 2021-06-10 14:25 | DRG 871 ==
LOC: ERS 17:02 → IMCU/EMU 18:46 → T4-B 06-01 20:17 → 2NO 06-03 22:52
PROVIDERS: ADMIT Family Medicine; ATTEND Internal Medicine
PROC: 3E03329 Introduction of Other Anti-infective into Peripheral Vein, Percutaneous Approach (ICD-10-PCS; 2021-05-29)
PROC: 5A09357 Assistance with Respiratory Ventilation, Less than 24 Consecutive Hours, Continuous Positive Airway Pressure (ICD-10-PCS; principal; 2021-05-30)
DX: A41.9 Sepsis, unspecified organism (principal); J18.9 Pneumonia, unspecified organism; J96.21 Acute and chronic respiratory failure with hypoxia; J96.22 Acute and chronic respiratory failure with hypercapnia; I21.A1 Myocardial infarction type 2; J44.1 Chronic obstructive pulmonary disease with (acute) exacerbation; J44.0 Chronic obstructive pulmonary disease with (acute) lower respiratory infection; I50.42 Chronic combined systolic (congestive) and diastolic (congestive) heart failure; I42.9 Cardiomyopathy, unspecified; I48.92 Unspecified atrial flutter; M84.48XA Pathological fracture, other site, initial encounter for fracture; E03.9 Hypothyroidism, unspecified; E78.5 Hyperlipidemia, unspecified; E78.00 Pure hypercholesterolemia, unspecified; F17.210 Nicotine dependence, cigarettes, uncomplicated; Z20.822 Contact with and (suspected) exposure to COVID-19; E83.52 Hypercalcemia; I11.0 Hypertensive heart disease with heart failure; D64.9 Anemia, unspecified; R33.9 Retention of urine, unspecified; I48.91 Unspecified atrial fibrillation; I44.7 Left bundle-branch block, unspecified; F39 Unspecified mood [affective] disorder; Z90.49 Acquired absence of other specified parts of digestive tract; Z98.51 Tubal ligation status; Z95.0 Presence of cardiac pacemaker; Z88.5 Allergy status to narcotic agent; Z88.1 Allergy status to other antibiotic agents; Z88.2 Allergy status to sulfonamides; Z88.8 Allergy status to other drugs, medicaments and biological substances; Z91.018 Allergy to other foods; Z79.01 Long term (current) use of anticoagulants; Z79.899 Other long term (current) drug therapy; Z79.82 Long term (current) use of aspirin; Z95.810 Presence of automatic (implantable) cardiac defibrillator
CPT/HCPCS: 36415; 36600; 71045; 74230; 76856; 80048; 80162; 80202; 82805; 83605; 83735; 84484; 85025; 87040; 93005; 93010; 93306; 94640; 94644; 94660; 94664; J0282; J0456; J0696; J1120; J1160; J1650; J1940; J2060; J2185; J2405; J2920; J3370; J3475; J3490; J7050; J7070; J7512; J7614; J7620